=== PATIENT | male | born 1950 | race Caucasian/White ===

== ENCOUNTER 2018-08-08 13:43 | Inpatient (IN) | payer MEDICARE, OTHER ==
[~2018-08-08] VITALS: Ht 177.8 cm; Wt 106.3 kg
--- NOTE | 2018-08-08 14:11 | RAD ---
CHEST AP ONLY History: Shortness of breath. COMPARISON: None FINDINGS: The cardiomediastinal silhouette is mildly widened but that is likely accentuated by the portable technique. No evidence of pneumothorax. No large effusion. Interstitial opacity identified bilaterally greatest in lung bases. No lobar consolidation. Bones appear to be intact. IMPRESSION: Mild interstitial opacities greatest in the lung bases, may represent atelectasis, versus mild edema or pneumonitis. Electronically signed by: Andry López MD (08/08/2018 2:08 PM) [id number]
[2018-08-08] MEDS ORDERED: dilTIAZem IV PUSH 25 MG/5 ML VIAL ONE (14:14)
[2018-08-08 14:22] LABS: BASO # 0.1 x10^3/uL (0.0-0.2); BASO % 1 % (0-3); EOS # 0.1 x10^3/uL (0.0-0.7); EOS % 2 % (0-3); HEMOGLOBIN 14.4 g/dL (13.0-17.5); LYMPH # 1.2 x10^3/uL (1.0-4.8); LYMPH % 16 % (24-48); MEAN CORPUSCULAR HEMOGLOBIN 34 pg (25-35); MEAN CORPUSCULAR HGB CONC 35 g/dL (31-37); MEAN CORPUSCULAR VOLUME 96 fL (79-100); MONO # 0.8 x10^3/uL (0.0-1.1); MONO % 11 % (0-9); NEUT # 5.2 x10^3uL (1.8-7.7); NEUT % 70 % (31-73); PLATELET COUNT 210 x10^3/uL (140-400); RED BLOOD COUNT 4.28 x10^6/uL (4.30-5.70); RED CELL DISTRIBUTION WIDTH 13.2 % (11.5-14.5); WHITE BLOOD COUNT 7.5 x10^3/uL (4.0-11.0)
[2018-08-08] MEDS ORDERED: dilTIAZem IV PUSH 25 MG/5 ML VIAL IVP ONE (14:30)
[2018-08-08] MEDS ORDERED: dilTIAZem INJ 125 MG in IV DEXTROSE 5% 100ML 100 ML IV ONE (14:30)
[2018-08-08] MEDS ORDERED: IV NORMAL SALINE 1000ML BAG 1,000 ML IV ONE (14:30)
[2018-08-08] MEDS ORDERED: FUROSEMIDE 40 MG/4 ML VIAL. IVP ONE (14:30)
[2018-08-08 14:35] LABS: CALCIUM 8.8 mg/dL (8.5-10.1); CREATININE 1.5 mg/dL (0.7-1.3); GFR 46.7; POTASSIUM 4.5 mmol/L (3.5-5.1)
--- NOTE | 2018-08-08 14:36 | PDOC2 ---
DAYANA VILLARREAL CCU NURSE 08/08/18 1436: CARDIAC CONSULT DATE OF CONSULT Date of Consult DATE: 08/08/18 TIME: 14:32 REASON FOR CONSULT Reason for Consult: CHF, AFIB RVR REFERRING PHYSICIAN Referring Physician: Cliff HISTORY OF PRESENT ILLNESS HISTORY OF PRESENT ILLNESS This is a pleasant 67 yo male admitted for complains of chest pain, SOA, palpitations. Reports that in the last month he has been feeling fatigue. His appetite has been decreased but told me that he only has gained 5 pounds in the last 6 months. Reported that he has been having intermittent mid chest pressure but nonradiating. No nausea or vomiting. Also positive for QUIROZ and feeling of indigestion and his gut feeling bigger. No recent falls or any injury and no past hx of CAD but has PSVT which he was checked on by his PCP about a month ago but no changes on his meds to which he takes atenolol at 25 mg daily. 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 Reports that in the last 2 weeks he has been having PND, orthopnea despite consistent use of CPAP but no significant swelling and has noted his HR being up and down so as his BP and felt that his CPAP stopped working. Upon arrival in ED he was noted SOA and has AFIB RVR. No prior hx of CVA, bleeding disorder. No recent fever or chills. No prior hx of AFIB. PAST MEDICAL HISTORY Cardiovascular: HTN, Other (PSVT) Pulmonary: No pertinent hx, Other CENTRAL NERVOUS SYSTEM: Carpal Tunnel Syndrome GI: No pertinent hx Heme/Onc: No pertinent hx Hepatobiliary: No pertinent hx Psych: Other (insomnia) Musculoskeletal: Osteoarthritis Rheumatologic: No pertinent hx Infectious disease: No pertinent hx ENT: No pertinent hx, Allergic Rhinitis Renal/: No pertinent hx Endocrine: No pertinent hx Dermatology: No pertinent hx PAST SURGICAL HISTORY Past Surgical History: Arthroscopy (bilateral knee), Other (carpal tunnel repair bilaterally) FAMILY HISTORY Family History: Coronary Artery Disease (father), Stroke (father) CURRENT MEDICATIONS CURRENT MEDICATIONS Current Medications Medications (Trade) Dose Ordered Sig/[place] Route PRN Reason Start Time Stop Time Status Last Admin Dose Admin Diltiazem HCl (Cardizem Iv Push) 10 mg 1X ONCE IVP 08/08/18 14:30 08/08/18 14:31 DC 08/08/18 14:17 ALLERGIES ALLERGIES: Coded Allergies: No Known Drug Allergies (Unverified , 08/08/18) ROS Review of System 14 point ROS evaluated with pertinent positives noted per HPI PHYSICAL EXAM General: Alert, Oriented X3, Cooperative, mild distress HEENT: Atraumatic, Mucous membr. moist/pink Lungs: Other (basilar crackles; biapap in place) Heart: Other (AFIB RVR; 2/6 systolic murmur to LLS border) Abdomen: Soft, Other (truncal obesity) Extremities: No cyanosis, Other (2+ bilateral pitting edema) Skin: No breakdown, No significant lesion Neuro: Normal speech, Sensation intact Psych/Mental Status: Mental status NL, Mood NL MUSCULOSKELETAL: Osteoarthritic changes both hands VITALS VITALS Vital Signs Date Time Temp Pulse Resp B/P (MAP) Pulse Ox O2 Delivery O2 Flow Rate FiO2 08/08/18 14:28 123 28 76/60 (65) 94 Room Air 08/08/18 13:51 98.3 98.3 LABS Lab: Laboratory Tests Test 08/08/18 14:15 White Blood Count 7.5 x10^3/uL (4.0-11.0) Red Blood Count 4.28 x10^6/uL (4.30-5.70) Hemoglobin 14.4 g/dL (13.0-17.5) Hematocrit 41.0 % (39.0-53.0) Mean Corpuscular Volume 96 fL (79-100) Mean Corpuscular Hemoglobin 34 pg (25-35) Mean Corpuscular Hemoglobin Concent 35 g/dL (31-37) Red Cell Distribution Width 13.2 % (11.5-14.5) Platelet Count 210 x10^3/uL (140-400) Neutrophils (%) (Auto) 70 % (31-73) Lymphocytes (%) (Auto) 16 % (24-48) Monocytes (%) (Auto) 11 % (0-9) Eosinophils (%) (Auto) 2 % (0-3) Basophils (%) (Auto) 1 % (0-3) Neutrophils # (Auto) 5.2 x10^3uL (1.8-7.7) Lymphocytes # (Auto) 1.2 x10^3/uL (1.0-4.8) Monocytes # (Auto) 0.8 x10^3/uL (0.0-1.1) Eosinophils # (Auto) 0.1 x10^3/uL (0.0-0.7) Basophils # (Auto) 0.1 x10^3/uL (0.0-0.2) ASSESSMENT/PLAN ASSESSMENT/PLAN 1. Chest pain: possibly from AFIB/CHF, could not rule out ischemis issues 2. Acute CHF with possible diastolic dysfunction: likely induced by AFIB but could not completely rule out ischemia 3. AFIB RVR: new., likely has been going on in the last month 4. Obesity with PAT: uses CPAP at home 5. HTN: BP currently marginal 6. Hx of PSVT: treated with low dose atenolol at home Recommendations 1. Lasix. Agree with bipap. DC cardizem and start on PO metoprol IR if BP trend allows 2. Cardizem bolus received, BP marginal unable to initiate drip Dig bolus. MR Dig in 6 hours if remains in RVR 3. ASA. Heparin drip to start. Potential inpt CVN if he does not convert 4. TSH, lipids, UA, ABG TTE. Trend troponin 5. Ischemic workup pending above testings and clincial course. SRIRAM JORGENSEN MD 08/09/18 0743: CARDIAC CONSULT ASSESSMENT/PLAN ASSESSMENT/PLAN Patient seen and examined 08/08/18. Agree with MACHINIST SUPERVISOR OUTSIDE's assessment and plan. Chest pain with mixed features Myocardial infarction has been ruled out Atrial fibrillation, newly diagnosed rate better controlled Agree with beta blockers for rate control Check 2-D echo to assess LV systolic function We will consider ischemic evaluation as an outpatient Acute on chronic diastolic heart failure probably secondary to atrial fibril lation, continue diuresis We will initiate eliquis prior to discharge and consider outpatient cardioversion Thank you for your consultation DAYANA VILLARREAL APRN Aug 08, 2018 14:36 SRIRAM JORGENSEN MD Aug 09, 2018 07:43
[2018-08-08 14:40] LABS: ALBUMIN 3.1 g/dL (3.4-5.0); ALBUMIN/GLOBULIN RATIO 0.8 (1.0-1.7); TOTAL BILIRUBIN 0.7 mg/dL (0.2-1.0); TOTAL PROTEIN 6.9 g/dL (6.4-8.2)
[2018-08-08 14:50] LABS: PROTHROMBIN TIME PATIENT 14.3 SEC (11.7-14.0)
--- NOTE | 2018-08-08 14:56 | PHYS DOC ---
Past Medical History Past Medical History: High Cholesterol, Hypertension, Other Additional Past Medical Histor: SVT, seasonal allergies Past Surgical History: Tonsillectomy, Other Additional Past Surgical Histo: knee surgery, tendon/ligament surgeries Additional Information: quit smoking 15 year ago Alcohol Use: Occasionally Drug Use: None Adult General Chief Complaint Chief Complaint: SHORTNESS OF BREATH [facility] HPI Patient is a 67 year old male presents with dyspnea 2 weeks with increased dyspnea with exertion this afternoon and that her chest pressure lasting less than 15 seconds. Denies history of coronary disease, valvular heart disease or arrhythmia. On triage EKG, the patient is in A. fib with RVR with heart rate in the 140s. Denies upper dictations. Denies dizziness lightheadedness, increased peripheral edema or water gain. No[] Review of Systems Review of Systems Constitutional: Denies fever or chills [] Eyes: Denies change in visual acuity, redness, or eye pain [] HENT: Denies nasal congestion or sore throat [] Respiratory: Denies cough or shortness of breath [] Cardiovascular: No additional information not addressed in HPI [] GI: Denies abdominal pain, nausea, vomiting, bloody stools or diarrhea [] : Denies dysuria or hematuria [] Musculoskeletal: Denies back pain or joint pain [] Integument: Denies rash or skin lesions [] Neurologic: Denies headache, focal weakness or sensory changes [] Endocrine: Denies polyuria or polydipsia [] All other systems were reviewed and found to be within normal limits, except as documented in this note. Current Medications Current Medications Current Medications Medications (Trade) Dose Ordered Sig/[facility] Start Time Stop Time Status Last Admin Dose Admin Acetaminophen (Tylenol) 500 mg PRN Q6HRS PRN 08/08/18 15:00 Acetaminophen/ Codeine Phosphate (Tylenol #3) 1 tab PRN Q6HRS PRN 08/08/18 15:00 Atorvastatin Calcium (Lipitor) 10 mg QHS 08/08/18 21:00 Cetirizine HCl (ZyrTEC) 10 mg PRN DAILY PRN 08/08/18 15:15 Digoxin (Lanoxin) 500 mcg 1X ONCE 08/08/18 15:15 08/08/18 15:17 DC Diltiazem HCl (Cardizem Iv Push) 25 mg STK-MED ONCE 08/08/18 14:14 08/08/18 14:15 DC Diltiazem HCl 125 mg/Dextrose 125 ml @ 5 mls/hr 1X ONCE 08/08/18 14:30 08/09/18 15:29 Fluticasone Propionate (Flonase) 2 spray DAILY 08/09/18 09:00 Furosemide (Lasix) 40 mg 1X ONCE 08/08/18 14:30 08/08/18 14:31 DC 08/08/18 14:37 40 MG Morphine Sulfate (Morphine Sulfate) 2 mg PRN Q2HR PRN 08/08/18 15:00 Ondansetron HCl (Zofran) 4 mg PRN Q6HRS PRN 08/08/18 15:00 Simvastatin (Zocor) 20 mg HS 08/08/18 21:00 08/08/18 21:00 DC Sodium Chloride 1,000 ml @ 1,000 mls/hr 1X ONCE 08/08/18 14:30 08/08/18 15:29 08/08/18 14:32 1,000 MLS/HR Temazepam (Restoril) 7.5 mg PRN QHS PRN 08/08/18 15:00 08/08/18 15:09 DC Trazodone HCl (Desyrel) 100 mg PRN QHS PRN 08/08/18 15:15 Allergies Allergies Allergies Coded Allergies Type Severity Reaction Last Updated Verified No Known Drug Allergies 08/08/18 No Physical Exam Physical Exam Constitutional: Well developed, well nourished, no acute distress, non-toxic appearance. [] HENT: Normocephalic, atraumatic, bilateral external ears normal, oropharynx moist, no oral exudates, nose normal. [] Eyes: PERRLA, EOMI, conjunctiva normal, no discharge. [] Neck: Normal range of motion, no tenderness. [] Cardiovascular:Heart rate regular rhythm, no murmur [] Lungs & Thorax: Bilateral breath sounds clear to auscultation [] Abdomen: Bowel sounds normal, soft, no tenderness, no masses, no pulsatile masses. [] Skin: Warm, dry, no erythema. [] Back: No tenderness. [] Extremities: No tenderness, no cyanosis, no clubbing, ROM intact, no edema. [] Neurologic: Alert and oriented X 3, normal motor function, normal sensory function, no focal deficits noted. [] Psychologic: Affect normal, judgement normal, mood normal. [] Current Patient Data Vital Signs Vital Signs Date Time Temp Pulse Resp B/P (MAP) Pulse Ox O2 Delivery O2 Flow Rate FiO2 08/08/18 14:37 114 20 95/77 (83) Room Air 08/08/18 14:28 94 08/08/18 13:51 98.3 98.3 Lab Values Laboratory Tests Test 08/08/18 14:15 White Blood Count 7.5 x10^3/uL (4.0-11.0) Red Blood Count 4.28 x10^6/uL (4.30-5.70) L Hemoglobin 14.4 g/dL (13.0-17.5) Hematocrit 41.0 % (39.0-53.0) Mean Corpuscular Volume 96 fL (79-100) Mean Corpuscular Hemoglobin 34 pg (25-35) Mean Corpuscular Hemoglobin Concent 35 g/dL (31-37) Red Cell Distribution Width 13.2 % (11.5-14.5) Platelet Count 210 x10^3/uL (140-400) Neutrophils (%) (Auto) 70 % (31-73) Lymphocytes (%) (Auto) 16 % (24-48) L Monocytes (%) (Auto) 11 % (0-9) H Eosinophils (%) (Auto) 2 % (0-3) Basophils (%) (Auto) 1 % (0-3) Neutrophils # (Auto) 5.2 x10^3uL (1.8-7.7) Lymphocytes # (Auto) 1.2 x10^3/uL (1.0-4.8) Monocytes # (Auto) 0.8 x10^3/uL (0.0-1.1) Eosinophils # (Auto) 0.1 x10^3/uL (0.0-0.7) Basophils # (Auto) 0.1 x10^3/uL (0.0-0.2) Prothrombin Time 14.3 SEC (11.7-14.0) H Prothrombin Time INR 1.1 (0.8-1.1) Sodium Level 142 mmol/L (136-145) Potassium Level 4.5 mmol/L (3.5-5.1) Chloride Level 106 mmol/L (98-107) Carbon Dioxide Level 26 mmol/L (21-32) Anion Gap 10 (6-14) Blood Urea Nitrogen 25 mg/dL (8-26) Creatinine 1.5 mg/dL (0.7-1.3) H Estimated GFR (Cockcroft-Gault) 46.7 BUN/Creatinine Ratio 17 (6-20) Glucose Level 126 mg/dL (70-99) H Calcium Level 8.8 mg/dL (8.5-10.1) Total Bilirubin 0.7 mg/dL (0.2-1.0) Aspartate Amino Transferase (AST) 31 U/L (15-37) Alanine Aminotransferase (ALT) 67 U/L (16-63) H Alkaline Phosphatase 69 U/L (46-116) Troponin I Quantitative < 0.017 ng/mL (0.000-0.055) RP-Tkp-C-Type Natriuretic Peptide 3361 pg/mL (0-124) H Total Protein 6.9 g/dL (6.4-8.2) Albumin 3.1 g/dL (3.4-5.0) L Albumin/Globulin Ratio 0.8 (1.0-1.7) L Thyroid Stimulating Hormone (TSH) 2.011 uIU/mL (0.358-3.74) Laboratory Tests 08/08/18 14:15 Laboratory Tests 08/08/18 14:15 EKG EKG [EKG: A. fib with RVR. rate 121.] Radiology/Procedures Radiology/Procedures [Chest x-ray: Cardiomegaly with pulmonary edema.] Course & Med Decision Making Course & Med Decision Making Pertinent Labs and Imaging studies reviewed. (See chart for details) [New-onset A. fib with RVR and congestive heart failure. Patient started on Cardizem drip and placed on BiPAP. Fluid bolus was started for hypotension, Lasix given. Cardiology services consult. to admit.] Johanny Disclaimer Johanny Disclaimer This electronic medical record was generated, in whole or in part, using a voice recognition dictation system. Departure Departure Impression: Primary Impression: Atrial fibrillation with RVR Additional Impression: Congestive heart failure Disposition: 09 ADMITTED INPATIENT Condition: IMPROVED Problem Qualifiers BRO ESTRADA DO Aug 08, 2018 14:55
[2018-08-08] MEDS ORDERED: MORPHINE SULFATE 2 MG/ML VIAL. IV PRN (15:00)
[2018-08-08] MEDS ORDERED: ACETAMINOPHEN 500 MG TABLET PO PRN (15:00)
[2018-08-08] MEDS ORDERED: ONDANSETRON PF 4 MG/2 ML VIAL. IV PRN (15:00)
[2018-08-08] MEDS ORDERED: ACETAMINOPHEN/CODEINE 300/30MG TABLET. PO PRN (15:00)
[2018-08-08] MEDS ORDERED: TEMAZEPAM 7.5 MG CAPSULE PO PRN (15:00)
[2018-08-08] MEDS ORDERED: FLUT9.9S NS (15:09)
[2018-08-08] MEDS ORDERED: TRAZ-86 PO (15:09)
[2018-08-08] MEDS ORDERED: LORA10TA3 PO (15:09)
[2018-08-08] MEDS ORDERED: SIMV20TA3 PO (15:09)
[2018-08-08] MEDS ORDERED: ATEN25TA PO (15:09)
[2018-08-08] MEDS ORDERED: DOXY100C2 PO (15:09)
[2018-08-08] MEDS ORDERED: DIGOXIN IV 500 MCG/2 ML AMPUL. IV ONE (15:15)
[2018-08-08] MEDS ORDERED: CETIRIZINE HCL 10 MG TABLET. PO PRN (15:15)
--- NOTE | 2018-08-08 15:16 | PDOC1 ---
History and Physical Date of Admission Date of Admission DATE: 08/08/18 TIME: 15:09 Identification/Chief Complaint Chief Complaint SOA, weight gain, big belly Source Source: Caregiver, Chart review, Patient History of Present Illness History of Present Illness 67-year-old white male lives with , BMI 34.4, known to Dr. Werner for sleep apnea, CPAP-but talks about needing BiPAP soon, Coming in because of SOA for a few weeks, culminated today with one major episode chest pain described as heavy left-sided and worsened SOA. also noted some weight gain, ascites/big belly but no leg edema.. No known history of CAD or CHF, nondiabetic. But history of hyportension, svt on atenolol. He is a former smoker quit in 2004, Hx Dyslipidemia on simvastatin, insomnia on trazodone and some COPD or allergies on loratadine and Flonase. Came in A. fib RVR 130s to 140s, history of SVT and was arranged to see our cardiology group but has not yet seen as outpatient. Got Cardizem bolus and drip but went hypotensive hence got IV fluid bolus. And some Lasix which we are fearing to give bec of hypotension. Currently now on the BiPAP. Chest pain-free, creatinine 1.5. We're waiting for cardiology. We'll also consult pulmonary Full code Home meds including trazodone, simvastatin, atenolol 25 once a day, loratadine and fluticasone No known drug allergies. Past Medical History Cardiovascular: Hyperlipidemia, Other (hypotension, SVT) Past Surgical History Past Surgical History: No pertinent history Family History Family History: High Cholestrol, Hypertension Social History Smoke: Quit ALCOHOL: occassional Drugs: None Current Medications Current Medications Current Medications Diltiazem HCl (Cardizem Iv Push) 10 mg 1X ONCE IVP Last administered on 08/08/18at 14:17; Start 08/08/18 at 14:30; Stop 08/08/18 at 14:31; Status DC Diltiazem HCl 125 mg/Dextrose 125 ml @ 5 mls/hr 1X ONCE IV ; Start 08/08/18 at 14:30; Stop 08/09/18 at 15:29 Diltiazem HCl (Cardizem Iv Push) 25 mg STK-MED ONCE .ROUTE ; Start 08/08/18 at 14:14; Stop 08/08/18 at 14:15; Status DC Sodium Chloride 1,000 ml @ 1,000 mls/hr 1X ONCE IV Last administered on 08/08/18at 14:32; Start 08/08/18 at 14:30; Stop 08/08/18 at 15:29 Furosemide (Lasix) 40 mg 1X ONCE IVP Last administered on 08/08/18at 14:37; Start 08/08/18 at 14:30; Stop 08/08/18 at 14:31; Status DC Acetaminophen (Tylenol) 500 mg PRN Q6HRS PRN PO MILD PAIN / TEMP; Start 08/08/18 at 15:00 Acetaminophen/ Codeine Phosphate (Tylenol #3) 1 tab PRN Q6HRS PRN PO MODERATE - SEVERE PAIN; Start 08/08/18 at 15:00 Ondansetron HCl (Zofran) 4 mg PRN Q6HRS PRN IV NAUSEA/VOMITING; Start 08/08/18 at 15:00 Morphine Sulfate (Morphine Sulfate) 2 mg PRN Q2HR PRN IV PAIN; Start 08/08/18 at 15:00 Temazepam (Restoril) 7.5 mg PRN QHS PRN PO INSOMNIA; Start 08/08/18 at 15:00 Active Scripts Active Reported Flonase Allergy Relief (Fluticasone Propionate) 9.9 Ml [place].susp 2 Sprays NS DAILY Loratadine 10 Mg Tablet 2 Tab PO DAILY Atenolol 25 Mg Tablet 1 Tab PO DAILY Simvastatin 20 Mg Tablet 20 Mg PO DAILY Trazodone Hcl 100 Mg Tablet 1 Tab PO QHS Doxycycline Hyclate 100 Mg Capsule 1 Cap PO BID Allergies Allergies: Coded Allergies: No Known Drug Allergies (Unverified , 08/08/18) ROS Review of System As per history of present illness, the rest of ROS 14 point negative Physical Exam General: Alert, Oriented X3, Cooperative, No acute distress, Other (on the BiPAP and working well with the BiPAP) HEENT: Atraumatic, PERRLA, EOMI Lungs: Normal air movement, Other (diminisehd breath sounds but no wheezing, crackles bases) Cardiovascular: S1, S2, Other (A. fib RVR, anywhere between 80s to 1 teens) Abdomen: Normal bowel sounds, Soft, No tenderness, No hepatosplenomegaly, No masses, Other (big belly, nondistended, normoactive bowel sounds, nontender) Male Genitals Exam: normal genitalia, normal prostate Rectal Exam: not examined PELVIC: Nml ext genitalia Extremities: No clubbing, No cyanosis, No edema, Normal pulses, No tenderness/swelling Skin: No rashes, No breakdown, No significant lesion Neuro: Normal gait, Normal speech, Strength at 5/5 X4 ext, Normal tone, Sensation intact, Cranial nerves 3-12 NL, Reflexes 2+ Psych/Mental Status: Mental status NL, Mood NL Vitals Vitals Vital Signs Date Time Temp Pulse Resp B/P (MAP) Pulse Ox O2 Delivery O2 Flow Rate FiO2 08/08/18 14:37 114 20 95/77 (83) Room Air 08/08/18 14:28 94 08/08/18 13:51 98.3 98.3 Labs Labs Laboratory Tests Test 08/08/18 14:15 White Blood Count 7.5 x10^3/uL (4.0-11.0) Red Blood Count 4.28 x10^6/uL (4.30-5.70) Hemoglobin 14.4 g/dL (13.0-17.5) Hematocrit 41.0 % (39.0-53.0) Mean Corpuscular Volume 96 fL (79-100) Mean Corpuscular Hemoglobin 34 pg (25-35) Mean Corpuscular Hemoglobin Concent 35 g/dL (31-37) Red Cell Distribution Width 13.2 % (11.5-14.5) Platelet Count 210 x10^3/uL (140-400) Neutrophils (%) (Auto) 70 % (31-73) Lymphocytes (%) (Auto) 16 % (24-48) Monocytes (%) (Auto) 11 % (0-9) Eosinophils (%) (Auto) 2 % (0-3) Basophils (%) (Auto) 1 % (0-3) Neutrophils # (Auto) 5.2 x10^3uL (1.8-7.7) Lymphocytes # (Auto) 1.2 x10^3/uL (1.0-4.8) Monocytes # (Auto) 0.8 x10^3/uL (0.0-1.1) Eosinophils # (Auto) 0.1 x10^3/uL (0.0-0.7) Basophils # (Auto) 0.1 x10^3/uL (0.0-0.2) Prothrombin Time 14.3 SEC (11.7-14.0) Prothromb Time International Ratio 1.1 (0.8-1.1) Sodium Level 142 mmol/L (136-145) Potassium Level 4.5 mmol/L (3.5-5.1) Chloride Level 106 mmol/L (98-107) Carbon Dioxide Level 26 mmol/L (21-32) Anion Gap 10 (6-14) Blood Urea Nitrogen 25 mg/dL (8-26) Creatinine 1.5 mg/dL (0.7-1.3) Estimated GFR (Cockcroft-Gault) 46.7 BUN/Creatinine Ratio 17 (6-20) Glucose Level 126 mg/dL (70-99) Calcium Level 8.8 mg/dL (8.5-10.1) Total Bilirubin 0.7 mg/dL (0.2-1.0) Aspartate Amino Transf (AST/SGOT) 31 U/L (15-37) Alanine Aminotransferase (ALT/SGPT) 67 U/L (16-63) Alkaline Phosphatase 69 U/L (46-116) Troponin I Quantitative < 0.017 ng/mL (0.000-0.055) VW-Pjw-T-Type Natriuretic Peptide 3361 pg/mL (0-124) Total Protein 6.9 g/dL (6.4-8.2) Albumin 3.1 g/dL (3.4-5.0) Albumin/Globulin Ratio 0.8 (1.0-1.7) Thyroid Stimulating Hormone (TSH) 2.011 uIU/mL (0.358-3.74) Laboratory Tests Test 08/08/18 14:15 White Blood Count 7.5 x10^3/uL (4.0-11.0) Red Blood Count 4.28 x10^6/uL (4.30-5.70) Hemoglobin 14.4 g/dL (13.0-17.5) Hematocrit 41.0 % (39.0-53.0) Mean Corpuscular Volume 96 fL (79-100) Mean Corpuscular Hemoglobin 34 pg (25-35) Mean Corpuscular Hemoglobin Concent 35 g/dL (31-37) Red Cell Distribution Width 13.2 % (11.5-14.5) Platelet Count 210 x10^3/uL (140-400) Neutrophils (%) (Auto) 70 % (31-73) Lymphocytes (%) (Auto) 16 % (24-48) Monocytes (%) (Auto) 11 % (0-9) Eosinophils (%) (Auto) 2 % (0-3) Basophils (%) (Auto) 1 % (0-3) Neutrophils # (Auto) 5.2 x10^3uL (1.8-7.7) Lymphocytes # (Auto) 1.2 x10^3/uL (1.0-4.8) Monocytes # (Auto) 0.8 x10^3/uL (0.0-1.1) Eosinophils # (Auto) 0.1 x10^3/uL (0.0-0.7) Basophils # (Auto) 0.1 x10^3/uL (0.0-0.2) Prothrombin Time 14.3 SEC (11.7-14.0) Prothromb Time International Ratio 1.1 (0.8-1.1) Sodium Level 142 mmol/L (136-145) Potassium Level 4.5 mmol/L (3.5-5.1) Chloride Level 106 mmol/L (98-107) Carbon Dioxide Level 26 mmol/L (21-32) Anion Gap 10 (6-14) Blood Urea Nitrogen 25 mg/dL (8-26) Creatinine 1.5 mg/dL (0.7-1.3) Estimated GFR (Cockcroft-Gault) 46.7 BUN/Creatinine Ratio 17 (6-20) Glucose Level 126 mg/dL (70-99) Calcium Level 8.8 mg/dL (8.5-10.1) Total Bilirubin 0.7 mg/dL (0.2-1.0) Aspartate Amino Transf (AST/SGOT) 31 U/L (15-37) Alanine Aminotransferase (ALT/SGPT) 67 U/L (16-63) Alkaline Phosphatase 69 U/L (46-116) Troponin I Quantitative < 0.017 ng/mL (0.000-0.055) ZD-Wfu-Q-Type Natriuretic Peptide 3361 pg/mL (0-124) Total Protein 6.9 g/dL (6.4-8.2) Albumin 3.1 g/dL (3.4-5.0) Albumin/Globulin Ratio 0.8 (1.0-1.7) Thyroid Stimulating Hormone (TSH) 2.011 uIU/mL (0.358-3.74) VTE Prophylaxis Ordered VTE Prophylaxis Devices: Yes VTE Pharmacological Prophylaxi: Yes Assessment/Plan Assessment/Plan Acute respiratory failure secondary to mild fluid overload with A. fib RVR on NIPPV-first time Ex-smoker quit 2004 Hypotension history History SVT on atenolol Dyslipidemia on simvastatin 20 daily at bedtime Morbid obesity with recent weight gain-BMI 34.4 No leg edema AK I creatinine 1.5-unknown baseline Elevated BNP 3000 Chest pain [id number] out ACS Plan: Admit 2 MN Cautious to give Lasix because of hypotension Cautious IV hydration because of pulm edema BiPAP-consult pulmonary and cardiology Check TSH CVC bed or ICU bed pending above consults I have reconciled home meds except atenolol because of hypotension Full code Discussed with and patient, seen at ER #[id number] Ok for cardiac diet Keep tele UMESH GLOVER MD Aug 08, 2018 15:16
--- NOTE | 2018-08-08 16:14 | EKG ---
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
[2018-08-08] MEDS ORDERED: HEPARIN 25,000UTS/500ML PREMIX 500 ML IV PRN (16:15)
[2018-08-08] MEDS ORDERED: ASPIRIN ENTERIC COATED 325 MG TABLET.DR. PO ONE (16:15)
[2018-08-08] MEDS ORDERED: METOPROLOL TART IMMED RELEASE 25 MG TABLET. PO ONE (16:15)
[2018-08-08] MEDS ORDERED: HEPARIN for IV BOLUS 10,000 UNIT/10 ML VIAL. IV PRN (16:15)
[2018-08-08 16:16] LABS: BILIRUBIN,URINE NEGATIVE (NEG); CLARITY,URINE CLEAR; COLOR,URINE YELLOW; NITRITE,URINE NEGATIVE (NEG); PROTEIN,URINE NEGATIVE (NEG-TRACE); UROBILINOGEN,URINE 0.2 mg/dL (0.2 mg/dL)
[2018-08-08 16:34] LABS: RBC,URINE 0 /HPF (0-2); WBC,URINE RARE /HPF (0-4)
[2018-08-08 16:35] LABS: BACTERIA,URINE 0 /HPF (0-FEW)
[2018-08-08 17:28] VITALS: BP 124/79
[2018-08-08 19:10] VITALS: BP 106/80
[2018-08-08] MEDS ORDERED: SIMVASTATIN 20 MG TABLET PO SCH (21:00)
[2018-08-08] MEDS: traZODone 100 MG TABLET. PO PRN (21:53)
[2018-08-08] MEDS: ATORVASTATIN CALCIUM 10 MG TABLET. PO SCH (21:53)
[2018-08-08 23:24] VITALS: BP 109/65
[2018-08-09 03:00] VITALS: BP 108/72
[2018-08-09 07:00] VITALS: BP 120/78
[2018-08-09 07:30] LABS: HEMATOCRIT 40.4 % (39.0-53.0); RED BLOOD COUNT 4.24 x10^6/uL (4.30-5.70); RED CELL DISTRIBUTION WIDTH 13.2 % (11.5-14.5); WHITE BLOOD COUNT 6.1 x10^3/uL (4.0-11.0)
[2018-08-09 07:37] LABS: CALCIUM 8.5 mg/dL (8.5-10.1); CREATININE 1.1 mg/dL (0.7-1.3); GFR 66.8; POTASSIUM 3.8 mmol/L (3.5-5.1)
[2018-08-09 07:42] LABS: MAGNESIUM 2.1 mg/dL (1.8-2.4)
[2018-08-09 07:45] LABS: CHOLESTEROL/HDL RATIO 3.7
--- NOTE | 2018-08-09 08:02 | PDOC ---
PULMONARY PROGRESS NOTES Subjective disregard this note Vitals Vital Signs Date Time Temp Pulse Resp B/P (MAP) Pulse Ox O2 Delivery O2 Flow Rate FiO2 08/09/18 03:00 98.0 90 20 108/72 (84) 94 BiPAP/CPAP 98.0 Cardiovascular: S1, S2, Other (A. fib RVR, anywhere between 80s to 1 teens) Labs Laboratory Tests Test 08/08/18 14:15 08/08/18 16:00 08/08/18 18:10 08/09/18 07:10 White Blood Count 7.5 x10^3/uL (4.0-11.0) 6.1 x10^3/uL (4.0-11.0) Red Blood Count 4.28 x10^6/uL (4.30-5.70) 4.24 x10^6/uL (4.30-5.70) Hemoglobin 14.4 g/dL (13.0-17.5) 14.0 g/dL (13.0-17.5) Hematocrit 41.0 % (39.0-53.0) 40.4 % (39.0-53.0) Mean Corpuscular Volume 96 fL (79-100) 95 fL (79-100) Mean Corpuscular Hemoglobin 34 pg (25-35) 33 pg (25-35) Mean Corpuscular Hemoglobin Concent 35 g/dL (31-37) 35 g/dL (31-37) Red Cell Distribution Width 13.2 % (11.5-14.5) 13.2 % (11.5-14.5) Platelet Count 210 x10^3/uL (140-400) 191 x10^3/uL (140-400) Neutrophils (%) (Auto) 70 % (31-73) Lymphocytes (%) (Auto) 16 % (24-48) Monocytes (%) (Auto) 11 % (0-9) Eosinophils (%) (Auto) 2 % (0-3) Basophils (%) (Auto) 1 % (0-3) Neutrophils # (Auto) 5.2 x10^3uL (1.8-7.7) Lymphocytes # (Auto) 1.2 x10^3/uL (1.0-4.8) Monocytes # (Auto) 0.8 x10^3/uL (0.0-1.1) Eosinophils # (Auto) 0.1 x10^3/uL (0.0-0.7) Basophils # (Auto) 0.1 x10^3/uL (0.0-0.2) Prothrombin Time 14.3 SEC (11.7-14.0) Prothromb Time International Ratio 1.1 (0.8-1.1) Sodium Level 142 mmol/L (136-145) 141 mmol/L (136-145) Potassium Level 4.5 mmol/L (3.5-5.1) 3.8 mmol/L (3.5-5.1) Chloride Level 106 mmol/L (98-107) 106 mmol/L (98-107) Carbon Dioxide Level 26 mmol/L (21-32) 24 mmol/L (21-32) Anion Gap 10 (6-14) 11 (6-14) Blood Urea Nitrogen 25 mg/dL (8-26) 22 mg/dL (8-26) Creatinine 1.5 mg/dL (0.7-1.3) 1.1 mg/dL (0.7-1.3) Estimated GFR (Cockcroft-Gault) 46.7 66.8 BUN/Creatinine Ratio 17 (6-20) Glucose Level 126 mg/dL (70-99) 96 mg/dL (70-99) Calcium Level 8.8 mg/dL (8.5-10.1) 8.5 mg/dL (8.5-10.1) Total Bilirubin 0.7 mg/dL (0.2-1.0) Aspartate Amino Transf (AST/SGOT) 31 U/L (15-37) Alanine Aminotransferase (ALT/SGPT) 67 U/L (16-63) Alkaline Phosphatase 69 U/L (46-116) Troponin I Quantitative < 0.017 ng/mL (0.000-0.055) < 0.017 ng/mL (0.000-0.055) SX-Odx-Z-Type Natriuretic Peptide 3361 pg/mL (0-124) Total Protein 6.9 g/dL (6.4-8.2) Albumin 3.1 g/dL (3.4-5.0) Albumin/Globulin Ratio 0.8 (1.0-1.7) Thyroid Stimulating Hormone (TSH) 2.011 uIU/mL (0.358-3.74) Urine Collection Type Unknown Urine Color Yellow Urine Clarity Clear Urine pH 6.0 Urine Specific [place] 1.010 Urine Protein Negative mg/dL (NEG-TRACE) Urine Glucose (UA) Negative mg/dL (NEG) Urine Ketones (Stick) Negative mg/dL (NEG) Urine Blood Negative (NEG) Urine Nitrite Negative (NEG) Urine Bilirubin Negative (NEG) Urine Urobilinogen Dipstick 0.2 mg/dL (0.2 mg/dL) Urine Leukocyte Esterase Negative (NEG) Urine RBC 0 /HPF (0-2) Urine WBC Rare /HPF (0-4) Urine Bacteria 0 /HPF (0-FEW) Urine Mucus Slight /LPF Heparin Anti-Xa Act, Unfractionated < 0.27 IU/mL (0.30-0.70) Magnesium Level 2.1 mg/dL (1.8-2.4) Triglycerides Level 83 mg/dL (0-150) Cholesterol Level 119 mg/dL (0-200) LDL Cholesterol, Calculated 70 mg/dL (0-100) VLDL Cholesterol, Calculated 17 mg/dL (0-40) Non-HDL Cholesterol Calculated 87 mg/dL (0-129) HDL Cholesterol 32 mg/dL (40-60) Cholesterol/HDL Ratio 3.7 Laboratory Tests Test 08/08/18 14:15 08/08/18 16:00 08/08/18 18:10 08/09/18 07:10 White Blood Count 7.5 x10^3/uL (4.0-11.0) 6.1 x10^3/uL (4.0-11.0) Red Blood Count 4.28 x10^6/uL (4.30-5.70) 4.24 x10^6/uL (4.30-5.70) Hemoglobin 14.4 g/dL (13.0-17.5) 14.0 g/dL (13.0-17.5) Hematocrit 41.0 % (39.0-53.0) 40.4 % (39.0-53.0) Mean Corpuscular Volume 96 fL (79-100) 95 fL (79-100) Mean Corpuscular Hemoglobin 34 pg (25-35) 33 pg (25-35) Mean Corpuscular Hemoglobin Concent 35 g/dL (31-37) 35 g/dL (31-37) Red Cell Distribution Width 13.2 % (11.5-14.5) 13.2 % (11.5-14.5) Platelet Count 210 x10^3/uL (140-400) 191 x10^3/uL (140-400) Neutrophils (%) (Auto) 70 % (31-73) Lymphocytes (%) (Auto) 16 % (24-48) Monocytes (%) (Auto) 11 % (0-9) Eosinophils (%) (Auto) 2 % (0-3) Basophils (%) (Auto) 1 % (0-3) Neutrophils # (Auto) 5.2 x10^3uL (1.8-7.7) Lymphocytes # (Auto) 1.2 x10^3/uL (1.0-4.8) Monocytes # (Auto) 0.8 x10^3/uL (0.0-1.1) Eosinophils # (Auto) 0.1 x10^3/uL (0.0-0.7) Basophils # (Auto) 0.1 x10^3/uL (0.0-0.2) Prothrombin Time 14.3 SEC (11.7-14.0) Prothromb Time International Ratio 1.1 (0.8-1.1) Sodium Level 142 mmol/L (136-145) 141 mmol/L (136-145) Potassium Level 4.5 mmol/L (3.5-5.1) 3.8 mmol/L (3.5-5.1) Chloride Level 106 mmol/L (98-107) 106 mmol/L (98-107) Carbon Dioxide Level 26 mmol/L (21-32) 24 mmol/L (21-32) Anion Gap 10 (6-14) 11 (6-14) Blood Urea Nitrogen 25 mg/dL (8-26) 22 mg/dL (8-26) Creatinine 1.5 mg/dL (0.7-1.3) 1.1 mg/dL (0.7-1.3) Estimated GFR (Cockcroft-Gault) 46.7 66.8 BUN/Creatinine Ratio 17 (6-20) Glucose Level 126 mg/dL (70-99) 96 mg/dL (70-99) Calcium Level 8.8 mg/dL (8.5-10.1) 8.5 mg/dL (8.5-10.1) Total Bilirubin 0.7 mg/dL (0.2-1.0) Aspartate Amino Transf (AST/SGOT) 31 U/L (15-37) Alanine Aminotransferase (ALT/SGPT) 67 U/L (16-63) Alkaline Phosphatase 69 U/L (46-116) Troponin I Quantitative < 0.017 ng/mL (0.000-0.055) < 0.017 ng/mL (0.000-0.055) GD-Wgd-T-Type Natriuretic Peptide 3361 pg/mL (0-124) Total Protein 6.9 g/dL (6.4-8.2) Albumin 3.1 g/dL (3.4-5.0) Albumin/Globulin Ratio 0.8 (1.0-1.7) Thyroid Stimulating Hormone (TSH) 2.011 uIU/mL (0.358-3.74) Urine Collection Type Unknown Urine Color Yellow Urine Clarity Clear Urine pH 6.0 Urine Specific [place] 1.010 Urine Protein Negative mg/dL (NEG-TRACE) Urine Glucose (UA) Negative mg/dL (NEG) Urine Ketones (Stick) Negative mg/dL (NEG) Urine Blood Negative (NEG) Urine Nitrite Negative (NEG) Urine Bilirubin Negative (NEG) Urine Urobilinogen Dipstick 0.2 mg/dL (0.2 mg/dL) Urine Leukocyte Esterase Negative (NEG) Urine RBC 0 /HPF (0-2) Urine WBC Rare /HPF (0-4) Urine Bacteria 0 /HPF (0-FEW) Urine Mucus Slight /LPF Heparin Anti-Xa Act, Unfractionated < 0.27 IU/mL (0.30-0.70) Magnesium Level 2.1 mg/dL (1.8-2.4) Triglycerides Level 83 mg/dL (0-150) Cholesterol Level 119 mg/dL (0-200) LDL Cholesterol, Calculated 70 mg/dL (0-100) VLDL Cholesterol, Calculated 17 mg/dL (0-40) Non-HDL Cholesterol Calculated 87 mg/dL (0-129) HDL Cholesterol 32 mg/dL (40-60) Cholesterol/HDL Ratio 3.7 Medications Active Scripts Medications Dose Route/Sig Max Daily Dose Days Date Category Flonase Allergy Relief (Fluticasone Propionate) 9.9 Ml [place].susp 2 Sprays NS DAILY 08/08/18 Reported Loratadine 10 Mg Tablet 2 Tab PO DAILY 08/08/18 Reported Atenolol 25 Mg Tablet 1 Tab PO DAILY 08/08/18 Reported Simvastatin 20 Mg Tablet 20 Mg PO DAILY 08/08/18 Reported Trazodone Hcl 100 Mg Tablet 1 Tab PO QHS 08/08/18 Reported Doxycycline Hyclate 100 Mg Capsule 1 Cap PO BID 08/08/18 Reported DOLORES MORENO MD Aug 09, 2018 08:02
--- NOTE | 2018-08-09 08:03 | PDOC ---
Provider Note Provider Note [id number] dyspnea afib rvr acute diastolic chf mary acpap qhs for DOLORES Velasco MD Aug 09, 2018 08:03
--- NOTE | 2018-08-09 08:12 | PDOC ---
PROGRESS NOTES Subjective Subjective Feeling better today with improvement in dyspnea. Denied any chest pain. Objective Objective Vital Signs Date Time Temp Pulse Resp B/P (MAP) Pulse Ox O2 Delivery O2 Flow Rate FiO2 08/09/18 03:00 98.0 90 20 108/72 (84) 94 BiPAP/CPAP 98.0 Intake and Output 08/09/18 07:00 Intake Total 1725 ml Output Total 2175 ml Balance -450 ml Intake Oral 600 ml IV Total 1125 ml Output Urine Total 2175 ml Physical Exam Abdomen: Soft, Other (truncal obesity) Heart: Other (AFIB RVR; 2/6 systolic murmur to LLS border) Extremities: No cyanosis, Other (trace edema) General: Alert, Oriented X3 HEENT: Atraumatic, Mucous membr. moist/pink Lungs: Other (basilar crackles; biapap in place) Neuro: Normal speech, Sensation intact Psych/Mental Status: Mental status NL, Mood NL Skin: No breakdown, No significant lesion Assessment Assessment 1. Chest pain: possibly from AFIB/CHF, myocardial infarction has been ruled out. Plan for ischemic evaluation with stress test as an outpatient. 2. Acute diastolic heart failure, likely induced by AFIB. Improved with diuresis. Check 2-D echo to assess LV systolic function. Change Lasix to by mouth tomorrow. 3. AFIB RVR: Newly diagnosed. Rate slightly elevated. Blood pressure marginal. Add digoxin for better rate control and continue metoprolol. Stop heparin infusion and start eliquis for stroke prophylaxis. Plan for outpatient cardioversion in 3-4 weeks. 4. Obesity with PAT: uses CPAP at home 5. HTN: BP controlled 6. Hx of PSVT Plan Plan of Care Problems Medical Problems: (1) Atrial fibrillation with RVR Status: Acute (2) Congestive heart failure Status: Acute Comment Review of Relevant I have reviewed the following items damian (where applicable) has been applied. Labs Laboratory Tests Test 08/08/18 14:15 08/08/18 16:00 08/08/18 18:10 08/09/18 07:10 White Blood Count 7.5 x10^3/uL (4.0-11.0) 6.1 x10^3/uL (4.0-11.0) Red Blood Count 4.28 x10^6/uL (4.30-5.70) 4.24 x10^6/uL (4.30-5.70) Hemoglobin 14.4 g/dL (13.0-17.5) 14.0 g/dL (13.0-17.5) Hematocrit 41.0 % (39.0-53.0) 40.4 % (39.0-53.0) Mean Corpuscular Volume 96 fL (79-100) 95 fL (79-100) Mean Corpuscular Hemoglobin 34 pg (25-35) 33 pg (25-35) Mean Corpuscular Hemoglobin Concent 35 g/dL (31-37) 35 g/dL (31-37) Red Cell Distribution Width 13.2 % (11.5-14.5) 13.2 % (11.5-14.5) Platelet Count 210 x10^3/uL (140-400) 191 x10^3/uL (140-400) Neutrophils (%) (Auto) 70 % (31-73) Lymphocytes (%) (Auto) 16 % (24-48) Monocytes (%) (Auto) 11 % (0-9) Eosinophils (%) (Auto) 2 % (0-3) Basophils (%) (Auto) 1 % (0-3) Neutrophils # (Auto) 5.2 x10^3uL (1.8-7.7) Lymphocytes # (Auto) 1.2 x10^3/uL (1.0-4.8) Monocytes # (Auto) 0.8 x10^3/uL (0.0-1.1) Eosinophils # (Auto) 0.1 x10^3/uL (0.0-0.7) Basophils # (Auto) 0.1 x10^3/uL (0.0-0.2) Prothrombin Time 14.3 SEC (11.7-14.0) Prothromb Time International Ratio 1.1 (0.8-1.1) Sodium Level 142 mmol/L (136-145) 141 mmol/L (136-145) Potassium Level 4.5 mmol/L (3.5-5.1) 3.8 mmol/L (3.5-5.1) Chloride Level 106 mmol/L (98-107) 106 mmol/L (98-107) Carbon Dioxide Level 26 mmol/L (21-32) 24 mmol/L (21-32) Anion Gap 10 (6-14) 11 (6-14) Blood Urea Nitrogen 25 mg/dL (8-26) 22 mg/dL (8-26) Creatinine 1.5 mg/dL (0.7-1.3) 1.1 mg/dL (0.7-1.3) Estimated GFR (Cockcroft-Gault) 46.7 66.8 BUN/Creatinine Ratio 17 (6-20) Glucose Level 126 mg/dL (70-99) 96 mg/dL (70-99) Calcium Level 8.8 mg/dL (8.5-10.1) 8.5 mg/dL (8.5-10.1) Total Bilirubin 0.7 mg/dL (0.2-1.0) Aspartate Amino Transf (AST/SGOT) 31 U/L (15-37) Alanine Aminotransferase (ALT/SGPT) 67 U/L (16-63) Alkaline Phosphatase 69 U/L (46-116) Troponin I Quantitative < 0.017 ng/mL (0.000-0.055) < 0.017 ng/mL (0.000-0.055) RO-Mpw-F-Type Natriuretic Peptide 3361 pg/mL (0-124) Total Protein 6.9 g/dL (6.4-8.2) Albumin 3.1 g/dL (3.4-5.0) Albumin/Globulin Ratio 0.8 (1.0-1.7) Thyroid Stimulating Hormone (TSH) 2.011 uIU/mL (0.358-3.74) Urine Collection Type Unknown Urine Color Yellow Urine Clarity Clear Urine pH 6.0 Urine Specific [place] 1.010 Urine Protein Negative mg/dL (NEG-TRACE) Urine Glucose (UA) Negative mg/dL (NEG) Urine Ketones (Stick) Negative mg/dL (NEG) Urine Blood Negative (NEG) Urine Nitrite Negative (NEG) Urine Bilirubin Negative (NEG) Urine Urobilinogen Dipstick 0.2 mg/dL (0.2 mg/dL) Urine Leukocyte Esterase Negative (NEG) Urine RBC 0 /HPF (0-2) Urine WBC Rare /HPF (0-4) Urine Bacteria 0 /HPF (0-FEW) Urine Mucus Slight /LPF Heparin Anti-Xa Act, Unfractionated < 0.27 IU/mL (0.30-0.70) Magnesium Level 2.1 mg/dL (1.8-2.4) Triglycerides Level 83 mg/dL (0-150) Cholesterol Level 119 mg/dL (0-200) LDL Cholesterol, Calculated 70 mg/dL (0-100) VLDL Cholesterol, Calculated 17 mg/dL (0-40) Non-HDL Cholesterol Calculated 87 mg/dL (0-129) HDL Cholesterol 32 mg/dL (40-60) Cholesterol/HDL Ratio 3.7 Medications Current Medications Acetaminophen (Tylenol) 500 mg PRN Q6HRS PRN PO MILD PAIN / TEMP; Start 08/08/18 at 15:00 Acetaminophen/ Codeine Phosphate (Tylenol #3) 1 tab PRN Q6HRS PRN PO MODERATE - SEVERE PAIN; Start 08/08/18 at 15:00 Aspirin (Ecotrin) 81 mg DAILYWBKFT PO ; Start 08/09/18 at 08:00 Aspirin (Ecotrin) 325 mg 1X ONCE PO Last administered on 08/08/18at 16:47; Start 08/08/18 at 16:15; Stop 08/08/18 at 16:17; Status DC Atorvastatin Calcium (Lipitor) 10 mg QHS PO Last administered on 08/08/18at 21:53; Start 08/08/18 at 21:00 Cetirizine HCl (ZyrTEC) 10 mg PRN DAILY PRN PO ALLERGIES; Start 08/08/18 at 15:15 Digoxin (Lanoxin) 500 mcg 1X ONCE IV Last administered on 08/08/18at 15:36; Start 08/08/18 at 15:15; Stop 08/08/18 at 15:17; Status DC Diltiazem HCl (Cardizem Iv Push) 10 mg 1X ONCE IVP Last administered on 08/08/18at 14:17; Start 08/08/18 at 14:30; Stop 08/08/18 at 16:14; Status DC Diltiazem HCl (Cardizem Iv Push) 25 mg STK-MED ONCE .ROUTE ; Start 08/08/18 at 14:14; Stop 08/08/18 at 14:15; Status DC Diltiazem HCl 125 mg/Dextrose 125 ml @ 5 mls/hr 1X ONCE IV ; Start 08/08/18 at 14:30; Stop 08/09/18 at 15:29 Fluticasone Propionate (Flonase) 2 spray DAILY NS ; Start 08/09/18 at 09:00 Furosemide (Lasix) 40 mg 1X ONCE IVP Last administered on 08/08/18at 14:37; Start 08/08/18 at 14:30; Stop 08/08/18 at 14:31; Status DC Furosemide (Lasix) 40 mg DAILY IVP ; Start 08/09/18 at 09:00 Heparin Sodium (Porcine) (Heparin Sodium) 2,700 unit PRN Q6HRS PRN IV FOR UFH LEVEL LESS THAN 0.2 Last administered on 08/09/18at 01:32; Start 08/08/18 at 16:15 Heparin Sodium/ Dextrose 500 ml @ 0 mls/hr CONT PRN IV SEE I/O RECORD; Start 08/08/18 at 16:15 Metoprolol Tartrate (Lopressor) 25 mg 1X ONCE PO Last administered on 08/08/18at 17:53; Start 08/08/18 at 16:15; Stop 08/08/18 at 16:17; Status DC Metoprolol Tartrate (Lopressor) 25 mg BID PO ; Start 08/09/18 at 09:00 Morphine Sulfate (Morphine Sulfate) 2 mg PRN Q2HR PRN IV PAIN; Start 08/08/18 at 15:00 Ondansetron HCl (Zofran) 4 mg PRN Q6HRS PRN IV NAUSEA/VOMITING; Start 08/08/18 at 15:00 Simvastatin (Zocor) 20 mg HS PO ; Start 08/08/18 at 21:00; Stop 08/08/18 at 21:00; Status DC Sodium Chloride 1,000 ml @ 1,000 mls/hr 1X ONCE IV Last administered on 08/08/18at 14:32; Start 08/08/18 at 14:30; Stop 08/08/18 at 15:29; Status DC Temazepam (Restoril) 7.5 mg PRN QHS PRN PO INSOMNIA; Start 08/08/18 at 15:00; Stop 08/08/18 at 15:09; Status DC Trazodone HCl (Desyrel) 100 mg PRN QHS PRN PO INSOMNIA Last administered on 08/08/18at 21:53; Start 08/08/18 at 15:15 Vitals/I & O Vital Sign - Last 24 Hours 08/08/18 08/08/18 08/08/18 08/08/18 13:51 14:17 14:21 14:23 Temp 98.3 98.3 Pulse 84 145 115 Resp 24 20 B/P (MAP) 105/78 (87) 105/78 89/65 (73) 87/62 (70) Pulse Ox 94 95 O2 Delivery Room Air Room Air 08/08/18 08/08/18 08/08/18 08/08/18 14:28 14:32 14:37 15:00 Pulse 123 114 114 Resp 28 24 20 B/P (MAP) 76/60 (65) 103/79 (87) 95/77 (83) Pulse Ox 94 100 O2 Delivery Room Air Room Air Room Air BiPAP/CPAP 08/08/18 08/08/18 08/08/18 08/08/18 15:36 16:01 17:00 17:28 Temp 98.0 98.0 Pulse 131 109 138 Resp 21 18 B/P (MAP) 112/77 119/87 (98) 124/79 (94) Pulse Ox 98 97 O2 Delivery BiPAP/CPAP Bi-pap Room Air 08/08/18 08/08/18 08/08/18 08/08/18 17:53 19:10 20:00 23:24 Temp 97.9 97.9 Pulse 108 85 106 Resp 21 20 B/P (MAP) 124/79 106/80 (89) 109/65 (80) Pulse Ox 96 89 O2 Delivery Room Air Room Air BiPAP/CPAP 08/09/18 03:00 Temp 98.0 98.0 Pulse 90 Resp 20 B/P (MAP) 108/72 (84) Pulse Ox 94 O2 Delivery BiPAP/CPAP Intake and Output 08/08/18 08/08/18 08/09/18 15:00 23:00 07:00 Intake Total 1000 ml 725 ml Output Total 1475 ml 700 ml Balance -475 ml 25 ml SRIRAM JORGENSEN MD Aug 09, 2018 08:12
--- NOTE | 2018-08-09 08:27 | CONS ---
DATE OF CONSULTATION: 08/09/2018 I was asked to see this 67-year-old gentleman for shortness of breath, obstructive sleep apnea-hypopnea syndrome. HISTORY OF PRESENT ILLNESS: He does have history of [id number] smoking, stopped smoking about 10 years ago. He was diagnosed with obstructive sleep apnea-hypopnea syndrome about 2 years ago. He has been followed by Dr. Werner. For the past month, he has not felt well. He does have shortness of breath at night. He called Dr. Werner's office and there was a suggestion of another sleep study with CPAP/BiPAP titration. He has had paroxysmal nocturnal dyspnea and orthopnea. He presented to the Emergency Room. He was noted to be in AFib with rapid ventricular response. He is now in AFib, but rate is controlled. His shortness of breath has improved. He did use his CPAP last night with no problems. He denies chest pain. He does have occasional cough secondary to postnasal drip. His shortness of breath has improved. PAST MEDICAL HISTORY: Obstructive sleep apnea-hypopnea syndrome, supraventricular tachycardia, and hypertension. ALLERGIES: No known drug allergies. MEDICATIONS: Currently, he is on metoprolol, Lasix, Flonase, aspirin, Lipitor, heparin drip, and Zyrtec. SOCIAL HISTORY: History of [id number] smoking, stopped smoking 10 years ago. FAMILY HISTORY: There is no history of lung disease. REVIEW OF SYSTEMS: As mentioned as above, other systems otherwise negative. PHYSICAL EXAMINATION: GENERAL: This is an overweight gentleman. VITAL SIGNS: His O2 saturation is 94%, respiratory rate 20, heart rate 90, blood pressure 108/72, and temperature 98. HEENT: Normocephalic, atraumatic. Pupils are equal, round, reactive to light. There is shallow oropharynx. Nose is clear. NECK: There is no JVD, lymphadenopathy or thyromegaly. CARDIOVASCULAR: Irregularly irregular rhythm. PMI is nondisplaced. CHEST: Inspection is normal. LUNGS: Clear to auscultation. There is no wheezing. Percussion is within normal limit. ABDOMEN: Soft and obese. Bowel sounds are good. There is no mass. EXTREMITIES: There is no edema. LYMPHATICS: There is no lymphadenopathy. SKIN: Warm. NEUROLOGIC: Alert and oriented. LABORATORY DATA: I reviewed the following lab data: Chest x-ray shows cardiomegaly, increased vascular marking, and right lower lobe atelectasis. WBC is 6.1, hemoglobin 14, and platelets 191. Sodium is 141, potassium 3.8, chloride 106, CO2 of 24, glucose 96, BUN 22, and creatinine 1.1. Troponin is less than 0.017. BNP is 3361. TSH is 2.01. IMPRESSION: 1. Dyspnea secondary to atrial fibrillation with rapid ventricular response and acute diastolic congestive heart failure versus others. 2. Abnormal chest x-ray. I suspect it is secondary to congestive heart failure and atelectasis. 3. Obstructive sleep apnea-hypopnea syndrome. 4. Hypertension. 5. Ex-smoker. 6. History of supraventricular tachycardia. 7. Allergic rhinitis. PLAN AND RECOMMENDATIONS: 1. Titrate FiO2 to keep O2 saturation 92%. 2. Cardiology is on the case. He is on heparin drip and metoprolol. He would require an echocardiogram. 3. Continue his home auto CPAP. He was able to sleep better last night. I suspect his nightly symptoms were secondary to atrial fibrillation with rapid ventricular response and CHF. He may require an overnight oximetry on CPAP before discharge or CPAP titration as an outpatient. 4. Cardiology is consulted. 5. Keep intake less than output. 6. He is on heparin drip per Cardiology. 7. Lose weight and exercise. 8. Pulmonary function test as an outpatient. 9. Flonase at bedtime. The findings and recommendations were discussed with the patient. He understood and agreed to proceed with the plan. I have answered all of his questions. Thank you very much for allowing me to participate in care of this very nice gentleman. DOLORES MORENO M.D. DR: WARREN/rhys JOB#: [id number] / [id number]
[2018-08-09] MEDS: ASPIRIN ENTERIC COATED 81 MG TABLET.DR. PO SCH (08:29)
[2018-08-09] MEDS: METOPROLOL TART IMMED RELEASE 25 MG TABLET. PO SCH ×2 (08:29→20:53)
[2018-08-09] MEDS: FUROSEMIDE 40 MG/4 ML VIAL. IVP SCH (08:30)
[2018-08-09] MEDS: FLUTICASONE 50MCG/NASAL SPRAY 16GM BOTTLE. NS SCH (08:39)
[2018-08-09] MEDS ORDERED: ANTI-COAG MONITOR BY PHARMACY. MC PRN (10:30)
[2018-08-09] MEDS: APIXABAN 5 MG TABLET. PO SCH ×2 (10:38→20:53)
[2018-08-09] MEDS: DIGOXIN 125 MCG TABLET. PO SCH (10:40)
[2018-08-09 11:00] VITALS: BP 111/66
--- NOTE | 2018-08-09 13:45 | PDOC ---
PROGRESS NOTES Chief Complaint Chief Complaint Acute respiratory failure secondary to mild fluid overload with A. fib RVR acute diastolic CHF History SVT on atenolol Dyslipidemia on simvastatin 20 daily at bedtime obesity with recent weight gain-BMI 34.4 tr leg edema on admit, some anasarca History of Present Illness History of Present Illness Lasix, change to PO in AM plan DC on anticoag CVC bed or ICU bed pending above consults Ok for cardiac diet Keep tele Vitals Vitals Vital Signs Date Time Temp Pulse Resp B/P (MAP) Pulse Ox O2 Delivery O2 Flow Rate FiO2 08/09/18 11:00 98.0 93 16 111/66 (81) 92 BiPAP/CPAP 98.0 Physical Exam General: Alert, Oriented X3 Heart: Other (AFIB RVR; 2/6 systolic murmur to LLS border) Abdomen: Soft, Other (truncal obesity) Extremities: No cyanosis, Other (trace edema) Skin: No breakdown, No significant lesion Labs LABS Laboratory Tests Test 08/08/18 14:15 08/08/18 16:00 08/08/18 18:10 08/09/18 07:10 White Blood Count 7.5 x10^3/uL (4.0-11.0) 6.1 x10^3/uL (4.0-11.0) Red Blood Count 4.28 x10^6/uL (4.30-5.70) 4.24 x10^6/uL (4.30-5.70) Hemoglobin 14.4 g/dL (13.0-17.5) 14.0 g/dL (13.0-17.5) Hematocrit 41.0 % (39.0-53.0) 40.4 % (39.0-53.0) Mean Corpuscular Volume 96 fL (79-100) 95 fL (79-100) Mean Corpuscular Hemoglobin 34 pg (25-35) 33 pg (25-35) Mean Corpuscular Hemoglobin Concent 35 g/dL (31-37) 35 g/dL (31-37) Red Cell Distribution Width 13.2 % (11.5-14.5) 13.2 % (11.5-14.5) Platelet Count 210 x10^3/uL (140-400) 191 x10^3/uL (140-400) Neutrophils (%) (Auto) 70 % (31-73) Lymphocytes (%) (Auto) 16 % (24-48) Monocytes (%) (Auto) 11 % (0-9) Eosinophils (%) (Auto) 2 % (0-3) Basophils (%) (Auto) 1 % (0-3) Neutrophils # (Auto) 5.2 x10^3uL (1.8-7.7) Lymphocytes # (Auto) 1.2 x10^3/uL (1.0-4.8) Monocytes # (Auto) 0.8 x10^3/uL (0.0-1.1) Eosinophils # (Auto) 0.1 x10^3/uL (0.0-0.7) Basophils # (Auto) 0.1 x10^3/uL (0.0-0.2) Prothrombin Time 14.3 SEC (11.7-14.0) Prothromb Time International Ratio 1.1 (0.8-1.1) Sodium Level 142 mmol/L (136-145) 141 mmol/L (136-145) Potassium Level 4.5 mmol/L (3.5-5.1) 3.8 mmol/L (3.5-5.1) Chloride Level 106 mmol/L (98-107) 106 mmol/L (98-107) Carbon Dioxide Level 26 mmol/L (21-32) 24 mmol/L (21-32) Anion Gap 10 (6-14) 11 (6-14) Blood Urea Nitrogen 25 mg/dL (8-26) 22 mg/dL (8-26) Creatinine 1.5 mg/dL (0.7-1.3) 1.1 mg/dL (0.7-1.3) Estimated GFR (Cockcroft-Gault) 46.7 66.8 BUN/Creatinine Ratio 17 (6-20) Glucose Level 126 mg/dL (70-99) 96 mg/dL (70-99) Calcium Level 8.8 mg/dL (8.5-10.1) 8.5 mg/dL (8.5-10.1) Total Bilirubin 0.7 mg/dL (0.2-1.0) Aspartate Amino Transf (AST/SGOT) 31 U/L (15-37) Alanine Aminotransferase (ALT/SGPT) 67 U/L (16-63) Alkaline Phosphatase 69 U/L (46-116) Troponin I Quantitative < 0.017 ng/mL (0.000-0.055) < 0.017 ng/mL (0.000-0.055) YL-Byp-V-Type Natriuretic Peptide 3361 pg/mL (0-124) Total Protein 6.9 g/dL (6.4-8.2) Albumin 3.1 g/dL (3.4-5.0) Albumin/Globulin Ratio 0.8 (1.0-1.7) Thyroid Stimulating Hormone (TSH) 2.011 uIU/mL (0.358-3.74) Urine Collection Type Unknown Urine Color Yellow Urine Clarity Clear Urine pH 6.0 Urine Specific [place] 1.010 Urine Protein Negative mg/dL (NEG-TRACE) Urine Glucose (UA) Negative mg/dL (NEG) Urine Ketones (Stick) Negative mg/dL (NEG) Urine Blood Negative (NEG) Urine Nitrite Negative (NEG) Urine Bilirubin Negative (NEG) Urine Urobilinogen Dipstick 0.2 mg/dL (0.2 mg/dL) Urine Leukocyte Esterase Negative (NEG) Urine RBC 0 /HPF (0-2) Urine WBC Rare /HPF (0-4) Urine Bacteria 0 /HPF (0-FEW) Urine Mucus Slight /LPF Heparin Anti-Xa Act, Unfractionated < 0.27 IU/mL (0.30-0.70) Magnesium Level 2.1 mg/dL (1.8-2.4) Triglycerides Level 83 mg/dL (0-150) Cholesterol Level 119 mg/dL (0-200) LDL Cholesterol, Calculated 70 mg/dL (0-100) VLDL Cholesterol, Calculated 17 mg/dL (0-40) Non-HDL Cholesterol Calculated 87 mg/dL (0-129) HDL Cholesterol 32 mg/dL (40-60) Cholesterol/HDL Ratio 3.7 Assessment and Plan Assessmemt and Plan Problems Medical Problems: (1) Atrial fibrillation with RVR Status: Acute (2) Congestive heart failure Status: Acute Comment Review of Relevant I have reviewed the following items damian (where applicable) has been applied. Labs Laboratory Tests Test 08/08/18 14:15 08/08/18 16:00 08/08/18 18:10 08/09/18 07:10 White Blood Count 7.5 x10^3/uL (4.0-11.0) 6.1 x10^3/uL (4.0-11.0) Red Blood Count 4.28 x10^6/uL (4.30-5.70) 4.24 x10^6/uL (4.30-5.70) Hemoglobin 14.4 g/dL (13.0-17.5) 14.0 g/dL (13.0-17.5) Hematocrit 41.0 % (39.0-53.0) 40.4 % (39.0-53.0) Mean Corpuscular Volume 96 fL (79-100) 95 fL (79-100) Mean Corpuscular Hemoglobin 34 pg (25-35) 33 pg (25-35) Mean Corpuscular Hemoglobin Concent 35 g/dL (31-37) 35 g/dL (31-37) Red Cell Distribution Width 13.2 % (11.5-14.5) 13.2 % (11.5-14.5) Platelet Count 210 x10^3/uL (140-400) 191 x10^3/uL (140-400) Neutrophils (%) (Auto) 70 % (31-73) Lymphocytes (%) (Auto) 16 % (24-48) Monocytes (%) (Auto) 11 % (0-9) Eosinophils (%) (Auto) 2 % (0-3) Basophils (%) (Auto) 1 % (0-3) Neutrophils # (Auto) 5.2 x10^3uL (1.8-7.7) Lymphocytes # (Auto) 1.2 x10^3/uL (1.0-4.8) Monocytes # (Auto) 0.8 x10^3/uL (0.0-1.1) Eosinophils # (Auto) 0.1 x10^3/uL (0.0-0.7) Basophils # (Auto) 0.1 x10^3/uL (0.0-0.2) Prothrombin Time 14.3 SEC (11.7-14.0) Prothromb Time International Ratio 1.1 (0.8-1.1) Sodium Level 142 mmol/L (136-145) 141 mmol/L (136-145) Potassium Level 4.5 mmol/L (3.5-5.1) 3.8 mmol/L (3.5-5.1) Chloride Level 106 mmol/L (98-107) 106 mmol/L (98-107) Carbon Dioxide Level 26 mmol/L (21-32) 24 mmol/L (21-32) Anion Gap 10 (6-14) 11 (6-14) Blood Urea Nitrogen 25 mg/dL (8-26) 22 mg/dL (8-26) Creatinine 1.5 mg/dL (0.7-1.3) 1.1 mg/dL (0.7-1.3) Estimated GFR (Cockcroft-Gault) 46.7 66.8 BUN/Creatinine Ratio 17 (6-20) Glucose Level 126 mg/dL (70-99) 96 mg/dL (70-99) Calcium Level 8.8 mg/dL (8.5-10.1) 8.5 mg/dL (8.5-10.1) Total Bilirubin 0.7 mg/dL (0.2-1.0) Aspartate Amino Transf (AST/SGOT) 31 U/L (15-37) Alanine Aminotransferase (ALT/SGPT) 67 U/L (16-63) Alkaline Phosphatase 69 U/L (46-116) Troponin I Quantitative < 0.017 ng/mL (0.000-0.055) < 0.017 ng/mL (0.000-0.055) DQ-Nzj-C-Type Natriuretic Peptide 3361 pg/mL (0-124) Total Protein 6.9 g/dL (6.4-8.2) Albumin 3.1 g/dL (3.4-5.0) Albumin/Globulin Ratio 0.8 (1.0-1.7) Thyroid Stimulating Hormone (TSH) 2.011 uIU/mL (0.358-3.74) Urine Collection Type Unknown Urine Color Yellow Urine Clarity Clear Urine pH 6.0 Urine Specific [place] 1.010 Urine Protein Negative mg/dL (NEG-TRACE) Urine Glucose (UA) Negative mg/dL (NEG) Urine Ketones (Stick) Negative mg/dL (NEG) Urine Blood Negative (NEG) Urine Nitrite Negative (NEG) Urine Bilirubin Negative (NEG) Urine Urobilinogen Dipstick 0.2 mg/dL (0.2 mg/dL) Urine Leukocyte Esterase Negative (NEG) Urine RBC 0 /HPF (0-2) Urine WBC Rare /HPF (0-4) Urine Bacteria 0 /HPF (0-FEW) Urine Mucus Slight /LPF Heparin Anti-Xa Act, Unfractionated < 0.27 IU/mL (0.30-0.70) Magnesium Level 2.1 mg/dL (1.8-2.4) Triglycerides Level 83 mg/dL (0-150) Cholesterol Level 119 mg/dL (0-200) LDL Cholesterol, Calculated 70 mg/dL (0-100) VLDL Cholesterol, Calculated 17 mg/dL (0-40) Non-HDL Cholesterol Calculated 87 mg/dL (0-129) HDL Cholesterol 32 mg/dL (40-60) Cholesterol/HDL Ratio 3.7 Laboratory Tests Test 08/08/18 14:15 08/08/18 16:00 08/08/18 18:10 08/09/18 07:10 White Blood Count 7.5 x10^3/uL (4.0-11.0) 6.1 x10^3/uL (4.0-11.0) Red Blood Count 4.28 x10^6/uL (4.30-5.70) 4.24 x10^6/uL (4.30-5.70) Hemoglobin 14.4 g/dL (13.0-17.5) 14.0 g/dL (13.0-17.5) Hematocrit 41.0 % (39.0-53.0) 40.4 % (39.0-53.0) Mean Corpuscular Volume 96 fL (79-100) 95 fL (79-100) Mean Corpuscular Hemoglobin 34 pg (25-35) 33 pg (25-35) Mean Corpuscular Hemoglobin Concent 35 g/dL (31-37) 35 g/dL (31-37) Red Cell Distribution Width 13.2 % (11.5-14.5) 13.2 % (11.5-14.5) Platelet Count 210 x10^3/uL (140-400) 191 x10^3/uL (140-400) Neutrophils (%) (Auto) 70 % (31-73) Lymphocytes (%) (Auto) 16 % (24-48) Monocytes (%) (Auto) 11 % (0-9) Eosinophils (%) (Auto) 2 % (0-3) Basophils (%) (Auto) 1 % (0-3) Neutrophils # (Auto) 5.2 x10^3uL (1.8-7.7) Lymphocytes # (Auto) 1.2 x10^3/uL (1.0-4.8) Monocytes # (Auto) 0.8 x10^3/uL (0.0-1.1) Eosinophils # (Auto) 0.1 x10^3/uL (0.0-0.7) Basophils # (Auto) 0.1 x10^3/uL (0.0-0.2) Prothrombin Time 14.3 SEC (11.7-14.0) Prothromb Time International Ratio 1.1 (0.8-1.1) Sodium Level 142 mmol/L (136-145) 141 mmol/L (136-145) Potassium Level 4.5 mmol/L (3.5-5.1) 3.8 mmol/L (3.5-5.1) Chloride Level 106 mmol/L (98-107) 106 mmol/L (98-107) Carbon Dioxide Level 26 mmol/L (21-32) 24 mmol/L (21-32) Anion Gap 10 (6-14) 11 (6-14) Blood Urea Nitrogen 25 mg/dL (8-26) 22 mg/dL (8-26) Creatinine 1.5 mg/dL (0.7-1.3) 1.1 mg/dL (0.7-1.3) Estimated GFR (Cockcroft-Gault) 46.7 66.8 BUN/Creatinine Ratio 17 (6-20) Glucose Level 126 mg/dL (70-99) 96 mg/dL (70-99) Calcium Level 8.8 mg/dL (8.5-10.1) 8.5 mg/dL (8.5-10.1) Total Bilirubin 0.7 mg/dL (0.2-1.0) Aspartate Amino Transf (AST/SGOT) 31 U/L (15-37) Alanine Aminotransferase (ALT/SGPT) 67 U/L (16-63) Alkaline Phosphatase 69 U/L (46-116) Troponin I Quantitative < 0.017 ng/mL (0.000-0.055) < 0.017 ng/mL (0.000-0.055) LM-Cqr-S-Type Natriuretic Peptide 3361 pg/mL (0-124) Total Protein 6.9 g/dL (6.4-8.2) Albumin 3.1 g/dL (3.4-5.0) Albumin/Globulin Ratio 0.8 (1.0-1.7) Thyroid Stimulating Hormone (TSH) 2.011 uIU/mL (0.358-3.74) Urine Collection Type Unknown Urine Color Yellow Urine Clarity Clear Urine pH 6.0 Urine Specific [place] 1.010 Urine Protein Negative mg/dL (NEG-TRACE) Urine Glucose (UA) Negative mg/dL (NEG) Urine Ketones (Stick) Negative mg/dL (NEG) Urine Blood Negative (NEG) Urine Nitrite Negative (NEG) Urine Bilirubin Negative (NEG) Urine Urobilinogen Dipstick 0.2 mg/dL (0.2 mg/dL) Urine Leukocyte Esterase Negative (NEG) Urine RBC 0 /HPF (0-2) Urine WBC Rare /HPF (0-4) Urine Bacteria 0 /HPF (0-FEW) Urine Mucus Slight /LPF Heparin Anti-Xa Act, Unfractionated < 0.27 IU/mL (0.30-0.70) Magnesium Level 2.1 mg/dL (1.8-2.4) Triglycerides Level 83 mg/dL (0-150) Cholesterol Level 119 mg/dL (0-200) LDL Cholesterol, Calculated 70 mg/dL (0-100) VLDL Cholesterol, Calculated 17 mg/dL (0-40) Non-HDL Cholesterol Calculated 87 mg/dL (0-129) HDL Cholesterol 32 mg/dL (40-60) Cholesterol/HDL Ratio 3.7 Medications Current Medications Diltiazem HCl (Cardizem Iv Push) 10 mg 1X ONCE IVP Last administered on 08/08/18at 14:17; Start 08/08/18 at 14:30; Stop 08/08/18 at 16:14; Status DC Diltiazem HCl 125 mg/Dextrose 125 ml @ 5 mls/hr 1X ONCE IV ; Start 08/08/18 at 14:30; Stop 08/09/18 at 15:29 Diltiazem HCl (Cardizem Iv Push) 25 mg STK-MED ONCE .ROUTE ; Start 08/08/18 at 14:14; Stop 08/08/18 at 14:15; Status DC Sodium Chloride 1,000 ml @ 1,000 mls/hr 1X ONCE IV Last administered on 08/08/18at 14:32; Start 08/08/18 at 14:30; Stop 08/08/18 at 15:29; Status DC Furosemide (Lasix) 40 mg 1X ONCE IVP Last administered on 08/08/18at 14:37; Start 08/08/18 at 14:30; Stop 08/08/18 at 14:31; Status DC Acetaminophen (Tylenol) 500 mg PRN Q6HRS PRN PO MILD PAIN / TEMP; Start 08/08/18 at 15:00 Acetaminophen/ Codeine Phosphate (Tylenol #3) 1 tab PRN Q6HRS PRN PO MODERATE - SEVERE PAIN; Start 08/08/18 at 15:00 Ondansetron HCl (Zofran) 4 mg PRN Q6HRS PRN IV NAUSEA/VOMITING; Start 08/08/18 at 15:00 Morphine Sulfate (Morphine Sulfate) 2 mg PRN Q2HR PRN IV PAIN; Start 08/08/18 at 15:00 Temazepam (Restoril) 7.5 mg PRN QHS PRN PO INSOMNIA; Start 08/08/18 at 15:00; Stop 08/08/18 at 15:09; Status DC Simvastatin (Zocor) 20 mg HS PO ; Start 08/08/18 at 21:00; Stop 08/08/18 at 21:00; Status DC Trazodone HCl (Desyrel) 100 mg PRN QHS PRN PO INSOMNIA Last administered on 08/08/18at 21:53; Start 08/08/18 at 15:15 Cetirizine HCl (ZyrTEC) 10 mg PRN DAILY PRN PO ALLERGIES; Start 08/08/18 at 15:15 Fluticasone Propionate (Flonase) 2 spray DAILY NS ; Start 08/09/18 at 09:00 Atorvastatin Calcium (Lipitor) 10 mg QHS PO Last administered on 08/08/18at 21:53; Start 08/08/18 at 21:00 Digoxin (Lanoxin) 500 mcg 1X ONCE IV Last administered on 08/08/18at 15:36; Start 08/08/18 at 15:15; Stop 08/08/18 at 15:17; Status DC Furosemide (Lasix) 40 mg DAILY IVP Last administered on 08/09/18at 08:30; Start 08/09/18 at 09:00 Heparin Sodium/ Dextrose 500 ml @ 0 mls/hr CONT PRN IV SEE I/O RECORD; Start 08/08/18 at 16:15; Stop 08/09/18 at 10:13; Status DC Heparin Sodium (Porcine) (Heparin Sodium) 2,700 unit PRN Q6HRS PRN IV FOR UFH LEVEL LESS THAN 0.2 Last administered on 08/09/18at 01:32; Start 08/08/18 at 16:15; Stop 08/09/18 at 10:13; Status DC Aspirin (Ecotrin) 325 mg 1X ONCE PO Last administered on 08/08/18at 16:47; Start 08/08/18 at 16:15; Stop 08/08/18 at 16:17; Status DC Aspirin (Ecotrin) 81 mg DAILYWBKFT PO Last administered on 08/09/18at 08:29; Start 08/09/18 at 08:00 Metoprolol Tartrate (Lopressor) 25 mg 1X ONCE PO Last administered on 08/08/18at 17:53; Start 08/08/18 at 16:15; Stop 08/08/18 at 16:17; Status DC Metoprolol Tartrate (Lopressor) 25 mg BID PO Last administered on 08/09/18at 08:29; Start 08/09/18 at 09:00 Apixaban (Eliquis) 5 mg BID PO Last administered on 08/09/18at 10:38; Start 08/09/18 at 10:15 Digoxin (Lanoxin) 125 mcg DAILY PO Last administered on 08/09/18at 10:40; Start 08/09/18 at 10:15 Info (Anti-Coagulation Monitoring By Pharmacy) 1 each PRN DAILY PRN MC SEE COMMENTS; Start 08/09/18 at 10:30 Active Scripts Active Reported Flonase Allergy Relief (Fluticasone Propionate) 9.9 Ml [place].susp 2 Sprays NS DAILY Loratadine 10 Mg Tablet 2 Tab PO DAILY Atenolol 25 Mg Tablet 1 Tab PO DAILY Simvastatin 20 Mg Tablet 20 Mg PO DAILY Trazodone Hcl 100 Mg Tablet 1 Tab PO QHS Doxycycline Hyclate 100 Mg Capsule 1 Cap PO BID Vitals/I & O Vital Sign - Last 24 Hours 6/7/19 6/7/19 6/7/19 6/7/19 13:51 14:17 14:21 14:23 Temp 98.3 98.3 Pulse 84 145 115 Resp 24 20 B/P (MAP) 105/78 (87) 105/78 89/65 (73) 87/62 (70) Pulse Ox 94 95 O2 Delivery Room Air Room Air 08/08/18 08/08/18 08/08/18 08/08/18 14:28 14:32 14:37 15:00 Pulse 123 114 114 Resp 28 24 20 B/P (MAP) 76/60 (65) 103/79 (87) 95/77 (83) Pulse Ox 94 100 O2 Delivery Room Air Room Air Room Air BiPAP/CPAP 08/08/18 08/08/18 08/08/18 08/08/18 15:36 16:01 17:00 17:28 Temp 98.0 98.0 Pulse 131 109 138 Resp 21 18 B/P (MAP) 112/77 119/87 (98) 124/79 (94) Pulse Ox 98 97 O2 Delivery BiPAP/CPAP Bi-pap Room Air 08/08/18 08/08/18 08/08/18 08/08/18 17:53 19:10 20:00 23:24 Temp 97.9 97.9 Pulse 108 85 106 Resp 21 20 B/P (MAP) 124/79 106/80 (89) 109/65 (80) Pulse Ox 96 89 O2 Delivery Room Air Room Air BiPAP/CPAP 08/09/18 08/09/18 08/09/18 08/09/18 03:00 07:00 08:00 08:29 Temp 98.0 97.7 98.0 97.7 Pulse 90 90 113 Resp 20 12 B/P (MAP) 108/72 (84) 120/78 (92) 120/78 Pulse Ox 94 94 O2 Delivery BiPAP/CPAP BiPAP/CPAP Room Air 08/09/18 08/09/18 10:40 11:00 Temp 98.0 98.0 Pulse 113 93 Resp 16 B/P (MAP) 120/78 111/66 (81) Pulse Ox 92 O2 Delivery BiPAP/CPAP Intake and Output 08/08/18 08/08/18 08/09/18 15:00 23:00 07:00 Intake Total 1000 ml 725 ml Output Total 1475 ml 700 ml Balance -475 ml 25 ml DANIEL BLANTON MD Aug 09, 2018 13:45
[2018-08-09 15:00] VITALS: BP 110/72
[2018-08-09 19:37] VITALS: BP 123/64
[2018-08-09] MEDS: ATORVASTATIN CALCIUM 10 MG TABLET. PO SCH (20:52)
[2018-08-09] MEDS: traZODone 100 MG TABLET. PO PRN (22:10)
[2018-08-09 23:00] VITALS: BP 111/66
[2018-08-10 02:55] VITALS: BP 109/73
[2018-08-10 05:53] LABS: CALCIUM 8.6 mg/dL (8.5-10.1); GFR 74.5; POTASSIUM 3.7 mmol/L (3.5-5.1)
[2018-08-10 07:00] VITALS: BP 108/74
--- NOTE | 2018-08-10 07:45 | PDOC ---
PULMONARY PROGRESS NOTES Subjective slept well, tolerated acpap well. no sob, occ cough, has post nasal drip, still in afib, hr at times high Vitals Vital Signs Date Time Temp Pulse Resp B/P (MAP) Pulse Ox O2 Delivery O2 Flow Rate FiO2 08/10/18 02:55 97.4 90 18 109/73 (85) 97 BiPAP/CPAP 97.4 ROS: No Nausea General: Alert, Oriented X4 HEENT: Other (nc at perrl) Lungs: Clear Cardiovascular: Other (irreg irreg) Abdomen: Soft, Non-tender Neuro Exam: Alert Extremities: No Edema Skin: Warm Labs Laboratory Tests Test 08/08/18 14:15 08/08/18 16:00 08/08/18 18:10 08/09/18 07:10 White Blood Count 7.5 x10^3/uL (4.0-11.0) 6.1 x10^3/uL (4.0-11.0) Red Blood Count 4.28 x10^6/uL (4.30-5.70) 4.24 x10^6/uL (4.30-5.70) Hemoglobin 14.4 g/dL (13.0-17.5) 14.0 g/dL (13.0-17.5) Hematocrit 41.0 % (39.0-53.0) 40.4 % (39.0-53.0) Mean Corpuscular Volume 96 fL (79-100) 95 fL (79-100) Mean Corpuscular Hemoglobin 34 pg (25-35) 33 pg (25-35) Mean Corpuscular Hemoglobin Concent 35 g/dL (31-37) 35 g/dL (31-37) Red Cell Distribution Width 13.2 % (11.5-14.5) 13.2 % (11.5-14.5) Platelet Count 210 x10^3/uL (140-400) 191 x10^3/uL (140-400) Neutrophils (%) (Auto) 70 % (31-73) Lymphocytes (%) (Auto) 16 % (24-48) Monocytes (%) (Auto) 11 % (0-9) Eosinophils (%) (Auto) 2 % (0-3) Basophils (%) (Auto) 1 % (0-3) Neutrophils # (Auto) 5.2 x10^3uL (1.8-7.7) Lymphocytes # (Auto) 1.2 x10^3/uL (1.0-4.8) Monocytes # (Auto) 0.8 x10^3/uL (0.0-1.1) Eosinophils # (Auto) 0.1 x10^3/uL (0.0-0.7) Basophils # (Auto) 0.1 x10^3/uL (0.0-0.2) Prothrombin Time 14.3 SEC (11.7-14.0) Prothromb Time International Ratio 1.1 (0.8-1.1) Sodium Level 142 mmol/L (136-145) 141 mmol/L (136-145) Potassium Level 4.5 mmol/L (3.5-5.1) 3.8 mmol/L (3.5-5.1) Chloride Level 106 mmol/L (98-107) 106 mmol/L (98-107) Carbon Dioxide Level 26 mmol/L (21-32) 24 mmol/L (21-32) Anion Gap 10 (6-14) 11 (6-14) Blood Urea Nitrogen 25 mg/dL (8-26) 22 mg/dL (8-26) Creatinine 1.5 mg/dL (0.7-1.3) 1.1 mg/dL (0.7-1.3) Estimated GFR (Cockcroft-Gault) 46.7 66.8 BUN/Creatinine Ratio 17 (6-20) Glucose Level 126 mg/dL (70-99) 96 mg/dL (70-99) Calcium Level 8.8 mg/dL (8.5-10.1) 8.5 mg/dL (8.5-10.1) Total Bilirubin 0.7 mg/dL (0.2-1.0) Aspartate Amino Transf (AST/SGOT) 31 U/L (15-37) Alanine Aminotransferase (ALT/SGPT) 67 U/L (16-63) Alkaline Phosphatase 69 U/L (46-116) Troponin I Quantitative < 0.017 ng/mL (0.000-0.055) < 0.017 ng/mL (0.000-0.055) DV-Kfl-H-Type Natriuretic Peptide 3361 pg/mL (0-124) Total Protein 6.9 g/dL (6.4-8.2) Albumin 3.1 g/dL (3.4-5.0) Albumin/Globulin Ratio 0.8 (1.0-1.7) Thyroid Stimulating Hormone (TSH) 2.011 uIU/mL (0.358-3.74) Urine Collection Type Unknown Urine Color Yellow Urine Clarity Clear Urine pH 6.0 Urine Specific [place] 1.010 Urine Protein Negative mg/dL (NEG-TRACE) Urine Glucose (UA) Negative mg/dL (NEG) Urine Ketones (Stick) Negative mg/dL (NEG) Urine Blood Negative (NEG) Urine Nitrite Negative (NEG) Urine Bilirubin Negative (NEG) Urine Urobilinogen Dipstick 0.2 mg/dL (0.2 mg/dL) Urine Leukocyte Esterase Negative (NEG) Urine RBC 0 /HPF (0-2) Urine WBC Rare /HPF (0-4) Urine Bacteria 0 /HPF (0-FEW) Urine Mucus Slight /LPF Heparin Anti-Xa Act, Unfractionated < 0.27 IU/mL (0.30-0.70) Magnesium Level 2.1 mg/dL (1.8-2.4) Triglycerides Level 83 mg/dL (0-150) Cholesterol Level 119 mg/dL (0-200) LDL Cholesterol, Calculated 70 mg/dL (0-100) VLDL Cholesterol, Calculated 17 mg/dL (0-40) Non-HDL Cholesterol Calculated 87 mg/dL (0-129) HDL Cholesterol 32 mg/dL (40-60) Cholesterol/HDL Ratio 3.7 Test 08/10/18 04:25 Sodium Level 141 mmol/L (136-145) Potassium Level 3.7 mmol/L (3.5-5.1) Chloride Level 105 mmol/L (98-107) Carbon Dioxide Level 24 mmol/L (21-32) Anion Gap 12 (6-14) Blood Urea Nitrogen 20 mg/dL (8-26) Creatinine 1.0 mg/dL (0.7-1.3) Estimated GFR (Cockcroft-Gault) 74.5 Glucose Level 91 mg/dL (70-99) Calcium Level 8.6 mg/dL (8.5-10.1) Magnesium Level 2.0 mg/dL (1.8-2.4) Laboratory Tests Test 6/9/19 04:25 Sodium Level 141 mmol/L (136-145) Potassium Level 3.7 mmol/L (3.5-5.1) Chloride Level 105 mmol/L (98-107) Carbon Dioxide Level 24 mmol/L (21-32) Anion Gap 12 (6-14) Blood Urea Nitrogen 20 mg/dL (8-26) Creatinine 1.0 mg/dL (0.7-1.3) Estimated GFR (Cockcroft-Gault) 74.5 Glucose Level 91 mg/dL (70-99) Calcium Level 8.6 mg/dL (8.5-10.1) Magnesium Level 2.0 mg/dL (1.8-2.4) Medications Active Scripts Medications Dose Route/Sig Max Daily Dose Days Date Category Flonase Allergy Relief (Fluticasone Propionate) 9.9 Ml [place].susp 2 Sprays NS DAILY 08/08/18 Reported Loratadine 10 Mg Tablet 2 Tab PO DAILY 08/08/18 Reported Atenolol 25 Mg Tablet 1 Tab PO DAILY 08/08/18 Reported Simvastatin 20 Mg Tablet 20 Mg PO DAILY 08/08/18 Reported Trazodone Hcl 100 Mg Tablet 1 Tab PO QHS 08/08/18 Reported Doxycycline Hyclate 100 Mg Capsule 1 Cap PO BID 08/08/18 Reported Impression . IMPRESSION: 1. Dyspnea secondary to atrial fibrillation with rapid ventricular response and acute diastolic congestive heart failure versus others. 2. Abnormal chest x-ray. I suspect it is secondary to congestive heart failure and atelectasis. 3. Obstructive sleep apnea-hypopnea syndrome. 4. Hypertension. 5. Ex-smoker. 6. History of supraventricular tachycardia. 7. Allergic rhinitis. Plan . PLAN AND RECOMMENDATIONS: 1. Titrate FiO2 to keep O2 saturation 92%. 2. He is on elliquis, metoprolol. He would require an echocardiogram. 3. Continue his home auto CPAP. He was able to sleep better last night. I suspect his nightly symptoms were secondary to atrial fibrillation with rapid ventricular response and CHF. 4. follow Cardiology recommendation 5. Keep intake less than output. 6. cont eliquis per Cardiology. 7. Lose weight and exercise. 8. Pulmonary function test as an outpatient. 9. Flonase at bedtime. discussed w rn, pt DOLORES MORENO MD Aug 10, 2018 07:45
[2018-08-10] MEDS: APIXABAN 5 MG TABLET. PO SCH (08:21)
[2018-08-10] MEDS: ASPIRIN ENTERIC COATED 81 MG TABLET.DR. PO SCH (08:21)
[2018-08-10] MEDS: METOPROLOL TART IMMED RELEASE 25 MG TABLET. PO SCH (08:21)
[2018-08-10] MEDS: DIGOXIN 125 MCG TABLET. PO SCH (08:21)
[2018-08-10] MEDS: FUROSEMIDE 40 MG/4 ML VIAL. IVP SCH (08:22)
[2018-08-10] MEDS: FLUTICASONE 50MCG/NASAL SPRAY 16GM BOTTLE. NS SCH (08:23)
[2018-08-10 10:46] VITALS: BP 100/64
[2018-08-10] MEDS ORDERED: DIGO125T PO (12:14)
[2018-08-10] MEDS ORDERED: APIX5TAB PO (12:14)
[2018-08-10] MEDS ORDERED: FURO-68 PO (12:14)
[2018-08-10] MEDS ORDERED: METO25TA4 PO (12:14)
[2018-08-10] MEDS ORDERED: ASPI-612 PO (12:14)
[2018-08-10] MEDS ORDERED: METO50TA6 PO (12:29)
[2018-08-10] MEDS ORDERED: METOPROLOL TART IMMED RELEASE 25 MG TABLET. PO ONE ×2 (12:30)
--- NOTE | 2018-08-10 12:30 | PDOC ---
PROGRESS NOTES Subjective Subjective Denied any chest pain. Dyspnea resolved. Objective Objective Vital Signs Date Time Temp Pulse Resp B/P (MAP) Pulse Ox O2 Delivery O2 Flow Rate FiO2 08/10/18 10:46 98.0 75 20 100/64 (76) 97 BiPAP/CPAP 98.0 Intake and Output 08/10/18 06:59 Intake Total 700 ml Output Total 1075 ml Balance -375 ml Intake Oral 700 ml Output Urine Total 1075 ml Physical Exam Abdomen: Soft, Other (truncal obesity) Heart: Other (AFIB RVR; 2/6 systolic murmur to LLS border) Extremities: No cyanosis, Other (trace edema) General: Alert, Oriented X3 HEENT: Atraumatic, Mucous membr. moist/pink Lungs: Other (basilar crackles; biapap in place) Neuro: Normal speech, Sensation intact Psych/Mental Status: Mental status NL, Mood NL Skin: No breakdown, No significant lesion Assessment Assessment 1. Chest pain: possibly from AFIB/CHF, myocardial infarction has been ruled out. Plan for ischemic evaluation with stress test as an outpatient. 2. Acute diastolic heart failure, likely induced by AFIB. Improved with diuresis. 2-D echo showed normal LV systolic function. Change Lasix to by mouth. 3. AFIB RVR: Newly diagnosed. Heart rate better controlled. Continue eliquis for stroke prophylaxis. Plan for outpatient cardioversion in 3-4 weeks. 4. Obesity with PAT: uses CPAP at home 5. HTN: BP controlled 6. Hx of PSVT Okay for discharge from cardiac standpoint. Follow-up in 1 month. Plan Plan of Care Problems Medical Problems: (1) Atrial fibrillation with RVR Status: Acute (2) Congestive heart failure Status: Acute Comment Review of Relevant I have reviewed the following items damian (where applicable) has been applied. Labs Laboratory Tests Test 08/10/18 04:25 Sodium Level 141 mmol/L (136-145) Potassium Level 3.7 mmol/L (3.5-5.1) Chloride Level 105 mmol/L (98-107) Carbon Dioxide Level 24 mmol/L (21-32) Anion Gap 12 (6-14) Blood Urea Nitrogen 20 mg/dL (8-26) Creatinine 1.0 mg/dL (0.7-1.3) Estimated GFR (Cockcroft-Gault) 74.5 Glucose Level 91 mg/dL (70-99) Calcium Level 8.6 mg/dL (8.5-10.1) Magnesium Level 2.0 mg/dL (1.8-2.4) Medications Current Medications Metoprolol Tartrate (Lopressor) 25 mg 1X ONCE PO ; Start 08/10/18 at 12:30; Stop 08/10/18 at 12:31; Status UNV Vitals/I & O Vital Sign - Last 24 Hours 08/09/18 08/09/18 08/09/18 08/09/18 15:00 19:37 20:09 20:53 Temp 97.1 98.0 97.1 98.0 Pulse 63 69 107 Resp 20 20 B/P (MAP) 110/72 (85) 123/64 (83) 123/64 Pulse Ox 92 94 O2 Delivery BiPAP/CPAP Room Air Room Air 08/09/18 08/10/18 08/10/18 08/10/18 23:00 02:55 07:00 08:00 Temp 97.4 97.6 97.4 97.6 Pulse 102 90 82 Resp 20 18 16 B/P (MAP) 111/66 (81) 109/73 (85) 108/74 (85) Pulse Ox 95 97 94 O2 Delivery BiPAP/CPAP BiPAP/CPAP BiPAP/CPAP Room Air 08/10/18 08/10/18 08/10/18 08:21 08:21 10:46 Temp 98.0 98.0 Pulse 82 82 75 Resp 20 B/P (MAP) 108/74 108/74 100/64 (76) Pulse Ox 97 O2 Delivery BiPAP/CPAP Intake and Output 08/09/18 08/09/18 08/10/18 14:59 22:59 06:59 Intake Total 300 ml 400 ml Output Total 1075 ml Balance 300 ml -675 ml SRIRAM JORGENSEN MD Aug 10, 2018 12:30
[2018-08-10 14:50] VITALS: BP 107/66
--- NOTE | 2018-08-10 16:41 | NUR ---
Discharge Note: MATEO JUAREZ Discharge instructions and discharge home medications reviewed with Patient and a copy given. All questions have been answered and understanding verbalized. The following instructions and handouts were given. Discontinued lines and drains. Patient discharged to home self care.
--- NOTE | 2018-08-10 17:56 | PDOC3 ---
Discharge Summary Visit Information Date of Admission: Aug 08, 2018 Date of Discharge: Aug 10, 2018 Admitting Diagnosis: acute hypoxia Final Diagnosis Acute respiratory failure secondary to mild fluid overload with A. fib RVR w/ acute diastolic CHF prior History SVT on atenolol Dyslipidemia on simvastatin 20 daily at bedtime obesity with recent weight gain-BMI 34.4 tr leg edema on admit, some anasarca Problems Medical Problems: (1) Atrial fibrillation with RVR Status: Acute (2) Congestive heart failure Status: Acute Brief Hospital Course Allergies Allergies Coded Allergies Type Severity Reaction Last Updated Verified No Known Drug Allergies 08/08/18 No Vital Signs Vital Signs Date Time Temp Pulse Resp B/P (MAP) Pulse Ox O2 Delivery O2 Flow Rate FiO2 08/10/18 14:50 98.1 94 20 107/66 (80) 95 BiPAP/CPAP 98.1 Lab Results Laboratory Tests Test 08/08/18 18:10 08/09/18 07:10 08/10/18 04:25 Troponin I Quantitative < 0.017 ng/mL (0.000-0.055) White Blood Count 6.1 x10^3/uL (4.0-11.0) Red Blood Count 4.24 x10^6/uL (4.30-5.70) Hemoglobin 14.0 g/dL (13.0-17.5) Hematocrit 40.4 % (39.0-53.0) Mean Corpuscular Volume 95 fL (79-100) Mean Corpuscular Hemoglobin 33 pg (25-35) Mean Corpuscular Hemoglobin Concent 35 g/dL (31-37) Red Cell Distribution Width 13.2 % (11.5-14.5) Platelet Count 191 x10^3/uL (140-400) Heparin Anti-Xa Act, Unfractionated < 0.27 IU/mL (0.30-0.70) Sodium Level 141 mmol/L (136-145) 141 mmol/L (136-145) Potassium Level 3.8 mmol/L (3.5-5.1) 3.7 mmol/L (3.5-5.1) Chloride Level 106 mmol/L (98-107) 105 mmol/L (98-107) Carbon Dioxide Level 24 mmol/L (21-32) 24 mmol/L (21-32) Anion Gap 11 (6-14) 12 (6-14) Blood Urea Nitrogen 22 mg/dL (8-26) 20 mg/dL (8-26) Creatinine 1.1 mg/dL (0.7-1.3) 1.0 mg/dL (0.7-1.3) Estimated GFR (Cockcroft-Gault) 66.8 74.5 Glucose Level 96 mg/dL (70-99) 91 mg/dL (70-99) Calcium Level 8.5 mg/dL (8.5-10.1) 8.6 mg/dL (8.5-10.1) Magnesium Level 2.1 mg/dL (1.8-2.4) 2.0 mg/dL (1.8-2.4) Triglycerides Level 83 mg/dL (0-150) Cholesterol Level 119 mg/dL (0-200) LDL Cholesterol, Calculated 70 mg/dL (0-100) VLDL Cholesterol, Calculated 17 mg/dL (0-40) Non-HDL Cholesterol Calculated 87 mg/dL (0-129) HDL Cholesterol 32 mg/dL (40-60) Cholesterol/HDL Ratio 3.7 Laboratory Tests Test 08/10/18 04:25 Sodium Level 141 mmol/L (136-145) Potassium Level 3.7 mmol/L (3.5-5.1) Chloride Level 105 mmol/L (98-107) Carbon Dioxide Level 24 mmol/L (21-32) Anion Gap 12 (6-14) Blood Urea Nitrogen 20 mg/dL (8-26) Creatinine 1.0 mg/dL (0.7-1.3) Estimated GFR (Cockcroft-Gault) 74.5 Glucose Level 91 mg/dL (70-99) Calcium Level 8.6 mg/dL (8.5-10.1) Magnesium Level 2.0 mg/dL (1.8-2.4) Brief Hospital Course Mr. Ann is a 67 old admti with acute CHF sx, dyspnea, and afib RVR, with acute symptoms. rate control with metoprolol and dig, BP relatively low, cardizem not started symptoms markedly improved, poor rate control on metoprolol 25 bid, increased to 50 for DC f/u CV and primary care Discharge Information Condition at Discharge: Improved Follow Up: Weeks Disposition/Orders: D/C to Home Scheduled Apixaban (Eliquis) 5 Mg Tablet, 5 MG PO BID for atrial fibrillation, #60 Ref 1 Prescribed by: DANIEL BLANTON on 08/10/18 1214 Aspirin (Aspirin Ec) 81 Mg Tablet.dr, 81 MG PO DAILYWBKFT for cardiac, #100 Prescribed by: DANIEL BLANTON on 08/10/18 1214 Digoxin (Digoxin) 125 Mcg Tablet, 125 MCG PO DAILY for atrial fibrillation, #30 Ref 2 Prescribed by: DANIEL BLANTON on 08/10/18 1214 Fluticasone Propionate (Flonase Allergy Relief) 9.9 Ml Drake.susp, 2 SPRAYS NS DAILY, (Reported) Entered as Reported by: OSMANI PA on 08/08/181508 Last Action: New Order on 08/08/181508 by OSMANI PA Furosemide (Lasix) 40 Mg Tablet, 1 TAB PO DAILY for CHF, #30 Ref 1 Prescribed by: DANIEL BLANTON on 08/10/18 1214 Loratadine (Loratadine) 10 Mg Tablet, 2 TAB PO DAILY, #30 Ref 5 (Reported) Entered as Reported by: OSMANI PA on 08/08/181508 Last Action: New Order on 08/08/181508 by OSMANI PA Metoprolol Tartrate (Metoprolol Tartrate) 50 Mg Tablet, 1 TAB PO BID for atrial fibrillation, #60 Ref 1 Prescribed by: DANIEL BLANTON on 08/10/18 1229 Simvastatin (Simvastatin) 20 Mg Tablet, 20 MG PO DAILY for FOR CHOLESTEROL, #30 Ref 0 (Reported) Entered as Reported by: OSMANI PA on 08/08/181508 Last Action: New Order on 08/08/181508 by OSMANI PA Trazodone Hcl (Trazodone Hcl) 100 Mg Tablet, 1 TAB PO QHS, #30 Ref 1 (Reported) Entered as Reported by: OSMANI PA on 08/08/181508 Last Action: New Order on 08/08/181508 by OSMANI PA Discontinued Medications Atenolol (Atenolol) 25 Mg Tablet, 1 TAB PO DAILY, #30 Ref 5 (Reported) Entered as Reported by: OSMANI PA on 08/08/181508 Last Action: New Order on 08/08/181508 by OSMANI PA Doxycycline Hyclate (Doxycycline Hyclate) 100 Mg Capsule, 1 CAP PO BID, #14 (Reported) Entered as Reported by: OSMANI PA on 08/08/181508 Last Action: New Order on 08/08/181508 by OSMANI PA Patient Instructions Patient Instructions > 30 min face to face DANIEL BLANTON MD Aug 10, 2018 17:56
[2018-08-11] MEDS ORDERED: FUROSEMIDE 20 MG TABLET PO SCH (09:00)
== END 2018-08-10 16:45 | disposition home or self-care (01) | DRG 291 ==
LOC: ER 13:43 → 2 SOUTH 15:30
PROVIDERS: ADMIT Internal Medicine; ATTEND Internal Medicine
PROC: 5A09357 Assistance with Respiratory Ventilation, Less than 24 Consecutive Hours, Continuous Positive Airway Pressure (ICD-10-PCS; principal; 2018-08-08)
PROC: 5A09357 Assistance with Respiratory Ventilation, Less than 24 Consecutive Hours, Continuous Positive Airway Pressure (ICD-10-PCS; 2018-08-09)
DX: I11.0 Hypertensive heart disease with heart failure (principal); J96.01 Acute respiratory failure with hypoxia; N17.9 Acute kidney failure, unspecified; I50.33 Acute on chronic diastolic (congestive) heart failure; I48.91 Unspecified atrial fibrillation; E66.01 Morbid (severe) obesity due to excess calories; E78.00 Pure hypercholesterolemia, unspecified; E78.5 Hyperlipidemia, unspecified; G47.33 Obstructive sleep apnea (adult) (pediatric); J30.9 Allergic rhinitis, unspecified; M19.042 Primary osteoarthritis, left hand; M19.041 Primary osteoarthritis, right hand; Z87.891 Personal history of nicotine dependence; Z79.899 Other long term (current) drug therapy; Z68.33 Body mass index [BMI] 33.0-33.9, adult; Z82.3 Family history of stroke; Z82.49 Family history of ischemic heart disease and other diseases of the circulatory system
CPT/HCPCS: 36415; 71045; 80048; 80053; 80061; 81001; 83735; 83880; 84443; 84484; 85025; 85027; 85520; 85610; 93005; 93306; 94660; 96361; 96374; 96375; J1160; J1644; J1940; J3490; J7030; 99285-25

== ENCOUNTER → 2018-08-13 | Outpatient (CLI) | payer MEDICARE, OTHER ==
[2018-08-10 14:50] VITALS: BP 107/66
[~2018-08-13] MED LIST: APIX5TAB PO; ASPI-612 PO; ATEN25TA PO; DIGO125T PO; DOXY100C2 PO; FLUT9.9S NS; FURO-68 PO; LORA10TA3 PO; METO25TA4 PO; METO50TA6 PO; SIMV20TA3 PO; TRAZ-86 PO
--- NOTE | 2018-08-15 09:16 | SLEEP ---
DATE OF STUDY: 08/13/2018 OBJECTIVE: The patient is a 68-year-old male here for a CPAP titration study. He is already on BiPAP at 20/5, auto titrating at home with Mesfin-Akers respirations. Height 5 feet 10 inches, weight 233 pounds, BMI 34. [place] Sleep Score 6. Sleep architecture is characterized by sleep efficiency of 65% across the 7.5 hours of recording time. Stage volumes are appropriate for age. Sleep onset latency is 4 minutes. Respiratory monitoring shows a total of 64 events, mostly obstructive in nature for an apnea-hypopnea index of 13.1 events per hour of sleep. The patient was very poorly tolerant of CPAP and BiPAP and continued to have markedly high apnea-hypopnea index even on a setting of 20/16. On that setting, the apnea-hypopnea index was 50 events per hour of sleep. The minimum oxygen saturation is 88%. No significant periodic limb movements of sleep are observed. The patient is observed to have atrial fibrillation. IMPRESSION: Abnormal polysomnogram showing obstructive sleep apnea and hypopnea, unsuccessfully treated with BiPAP. RECOMMENDATION: 1. The patient could try BiPAP using a Respironics DreamWear full face mask, medium size. 2. He should avoid sedatives and alcohol and pursue weight loss. Thank you for letting us help with the patient's care. LASHON TITUS MD DR: JANICE/rhys JOB#: [id number] / [id number] NELLY Celis MD, SHAWN MD
== END | disposition home or self-care (01) ==
LOC: RT 18:04
PROVIDERS: ATTEND Internal Medicine Critical Care Medicine
DX: G47.33 Obstructive sleep apnea (adult) (pediatric) (principal)
CPT/HCPCS: 95811

== ENCOUNTER → 2018-08-14 | Outpatient (CLI) | payer MEDICARE, OTHER ==
[2018-08-10 14:50] VITALS: BP 107/66
[~2018-08-14] MED LIST changes: +CONTRAST GIVEN. MC PRN; +IOHEXOL 350 MG/ML 100 ML VIAL. IV ONE
--- NOTE | 2018-08-14 16:08 | RAD ---
EXAM: CT chest with contrast - pulmonary embolus protocol CLINICAL HISTORY: CHF, shortness of air, elevated d-dimer. COMPARISON: None. TECHNIQUE: CT of the chest following the administration of intravenous contrast during the pulmonary arterial phase. Axial, coronal and sagittal reformatted images were generated including MIP images. ---PQRS compliance statement - One or more of the following individualized dose reduction techniques were utilized for this study: 1. Automated exposure control 2. Adjustment of the mA and/or kV according to patient size 3. Use of iterative reconstruction technique--- FINDINGS: CHEST: Diagnostic quality: Adequate. Pulmonary emboli: None seen Right heart strain: None Pulmonary arteries: Normal in caliber. Heart is mildly enlarged. Trace pericardial fluid likely physiologic. No mediastinal or hilar lymphadenopathy, although a few mildly prominent precarinal and right hilar lymph nodes are seen. No axillary lymphadenopathy. No pleural effusion or pneumothorax. Linear opacities in the lingula likely scarring/atelectasis. A 4 mm left lower lobe lung nodule (series 3 image 138) is seen. A 7 mm left lower lobe lung nodule (series 3 image 111) is seen. A 3 mm right upper lobe lung nodule (series 3 image 75) is seen. Several additional bilateral lung nodules are seen measuring up to 4-5 mm. Central airways are grossly patent. Visualized Upper abdomen: There is retrograde opacification of the hepatic veins possibly from exuberant contrast injection. Millimeters hypodense lesion in the left hepatic lobe is too small to characterize. Visualized upper abdomen is otherwise unremarkable. Bones: Evaluation of the osseous structures is limited given MIP reconstructions. Within these constraints osseous structures are grossly unremarkable. IMPRESSION: No evidence for acute pulmonary embolus. Bilateral lung nodules are seen measuring up to 7 mm. Per Fleischner Society guidelines for incidentally found multiple solid nodules measuring 6-8 mm, initial CT follow-up is recommended in 3-6 months. Additional follow-up can be considered in 18-24 month based on risk factors. Electronically signed by: Tobi Drummond MD (08/14/2018 4:05 PM) [id number]
== END | disposition home or self-care (01) ==
LOC: CT 15:11
PROVIDERS: ATTEND Family Medicine
DX: I11.0 Hypertensive heart disease with heart failure (principal); I50.33 Acute on chronic diastolic (congestive) heart failure; R91.8 Other nonspecific abnormal finding of lung field
CPT/HCPCS: 71275; Q9967

== ENCOUNTER → 2018-08-15 | Outpatient (CLI) | payer MEDICARE, OTHER ==
[2018-08-10 14:50] VITALS: BP 107/66
[~2018-08-15] MED LIST changes: -CONTRAST GIVEN. MC PRN; -IOHEXOL 350 MG/ML 100 ML VIAL. IV ONE; +REGADENOSON 0.4 MG/5 ML DISP.SYRIN. IV ONE
--- NOTE | 2018-08-15 11:11 | RAD ---
MR#: [id number] Date of Study: 08/15/2018 Ordering Physician: SRIRAM JORGENSEN, Referring Physician: ALICIA FULLER Tech: RT Randall MalikR) (N) APPROVED REPORT Test Type: Pharmacological Stress Nurse/Tech: Hannah Brush R.N. Test Indications: a fib, cardiomyopathy Cardiac History: Family history, High cholesterol, hypotension Medications: See Electronic Medical Record Medical History: See Electronic Medical Record Resting ECG: a fib with PVC's Resting Heart Rate: 118 bpm Resting Blood Pressure: 107/69mmHg Pretest Chest Pain: No chest pain Nurse/Tech Notes S1S2, lungs sound clear Consent: The procedure was explained to the patient in lay terms. Informed consent was witnessed. Dhiraj eout was entered into [employer]. History and Stress Test performed by David KulkarniN. Pharm. Details Pharmacologic stress testing was performed using 0.4mg per 5ml of regadenoson given intravenously ove r 7-10 seconds. Stress Symptoms Dyspnea, rapid a fib rate up to 182 POST EXERCISE Reason for Termination: Infusion complete Target HR: 129 Max HR: 182 bpm Max Blood Pressure: 114/63mmHg Chest Pain: No. Arrhythmia: Yes. cont. a fib with PVC's ST Change: No. INTERPRETATION Stress EKG Conclusion: No evidence of stress induced EKG changes. Imaging Protocol IMAGE PROTOCOL: Rest Tc-99m/stress Tc-99m 1 day Rest: Stress: Viability: Radiopharm.Tc99m JtblwdvocOm19q Sestamibi Dose10.4mCi 33mCi Duration 13min. 13min. Img Date 08/15/2018 08/15/2018 Inj-Img Gtwv98ioq. 60min. Rest Admin Site:IV - Right AntecubitalAdministrator:RT Helena (R)(N) Stress Admin Site: IV - Right AntecubitalAdministrator: CARYE Garduno STRESS DATA End Diast. Vol.120.0mlLVEDV index BSA54.0ml End Syst. Vol.45.0mlLVESV index BSA20.0ml Myocardial Ibpc093.0gEject. Bnykklbk40.0% Stress Scores Regional WT2.00Summed WT33.00 Regional WM0.00Summed WM5.00 The rest and stress images show normal perfusion, normal contraction and thickening. LV Perf. Quant 17 Seg. SSS3.00 17 Seg. SRS2.00 17 Seg. SDS1.00 Stress Defect Extent (% LAD)0.00Rest Defect Extent (% LAD)0.00Rev. Defect Extent (% LAD)0.00 Stress Defect Extent (% LCX) 17.50Rest Defect Extent (% LCX)1.30Rev. Defect Extent (% LCX)6.30 Stress Defect Extent (% RCA)0.00Rest Defect Extent (% RCA)0.00Rev. Defect Extent (% RCA)0.00 Stress Defect Extent (% PRAMOD)5.00Rest Defect Extent (% PRAMOD)0.20Rev. Defect Extent (% PRAMOD)2.80 Other Information Quality:Good Risk Assessment: Low Risk Conclusion 1. No evidence of EKG changes with stress testing. 2. Normal perfusion at stress/rest. 3. Low risk study. 4. EF > 60%. Signed by : Cruz Valero, Electronically Approved : 08/15/2018 11:10:33
== END | disposition home or self-care (01) ==
LOC: NM 07:49
PROVIDERS: ATTEND Internal Medicine Cardiovascular Disease
DX: I49.3 Ventricular premature depolarization (principal); I48.91 Unspecified atrial fibrillation; I42.9 Cardiomyopathy, unspecified; E78.00 Pure hypercholesterolemia, unspecified
CPT/HCPCS: 78452; 93017; A9500; J2785

== ENCOUNTER → 2018-09-30 | Day surgery (SDC) | payer MEDICARE, OTHER ==
[~2018-09-30] MED LIST changes: +IV RINGERS,LACTATED 1000ML 1,000 ML IV SCH; +LIDOCAINE 2% PF 5 ML VIAL. ONE; +PROPOFOL 20 ML IV ONE; -REGADENOSON 0.4 MG/5 ML DISP.SYRIN. IV ONE
--- NOTE | 2018-09-30 13:58 | EKG ---
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
[2018-09-30 14:27] LABS: HEMATOCRIT 42.5 % (39.0-53.0); RED BLOOD COUNT 4.52 x10^6/uL (4.30-5.70); WHITE BLOOD COUNT 7.7 x10^3/uL (4.0-11.0)
[2018-09-30 14:34] LABS: CALCIUM 8.8 mg/dL (8.5-10.1); CREATININE 1.1 mg/dL (0.7-1.3); GFR 66.6; POTASSIUM 4.3 mmol/L (3.5-5.1)
[2018-09-30 14:36] LABS: PROTHROMBIN TIME PATIENT 15.4 SEC (11.7-14.0)
[2018-09-30 14:53] LABS: DIG 0.5 ng/mL (0.9-2.0)
--- NOTE | 2018-09-30 15:44 | EKG ---
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
[2018-09-30 15:55] VITALS: BP 125/81
--- NOTE | 2018-09-30 16:52 | PDOC4 ---
PROCEDURE Procedure PROCEDURE Successful external cardioversion INDICATIONS Atrial fibrillation COMPLICATIONS None PROCEDURE DETAILS An informed consent was obtained from patient. After anesthesiology team administered intravenous propofol for deep sedation, patient was given 200 J of synchronized biphasic DC shock therapy with successful conversion of rhythm from atrial fibrillation to sinus rhythm. He was hemodynamically stable without any neurological deficits at the end of procedure. He tolerated the procedure well. There were no immediate complications. CONCLUSIONS Successful external cardioversion of atrial fibrillation to sinus rhythm. SRIRAM JORGENSEN MD Sep 30, 2018 16:52
== END ==
LOC: SURG 13:03
PROVIDERS: ATTEND Internal Medicine Cardiovascular Disease
DX: I48.91 Unspecified atrial fibrillation (principal)
CPT/HCPCS: 36415; 80048; 80162; 85027; 85610; 92960; 93005; J2001; J2704

== ENCOUNTER → 2019-01-16 | Outpatient (CLI) | payer MEDICARE, OTHER ==
[2018-11-08 08:36] VITALS: BP 97/68
[~2019-01-16] MED LIST changes: +AMIO200T4 PO; -IV RINGERS,LACTATED 1000ML 1,000 ML IV SCH; -LIDOCAINE 2% PF 5 ML VIAL. ONE; -PROPOFOL 20 ML IV ONE; +SIMV20TA18 PO; -SIMV20TA3 PO
--- NOTE | 2019-01-16 13:02 | KCIC ---
CT CHEST WO CONTRAST Indication: Lung nodule Technique: Noncontrast CT imaging was performed of the chest, multiplanar reconstruction images submitted. One or more of the following individualized dose reduction techniques were utilized for this examination: 1. Automated exposure control 2. Adjustment of the mA and/or kV according to patient size 3. Use of iterative reconstruction technique. Comparison: August 14, 2018 Findings: 6 mm left lower lobe pulmonary nodule image 42 series 2 is stable. 4mm left lower lobe nodule image 54 is stable. 2 mm left upper lobe subpleural nodule image 18 is stable. Small dense probably partially calcified 3 mm upper lobe nodule image 29 is stable. 2 mm right upper lobe nodule image 36 is stable. 2 to 3 mm right middle lobe nodule image 42 is stable. 4 mm nodule along the right major fissure image 37 is stable. No new pulmonary nodularity, infiltrate, pleural pericardial effusion is identified. There is some coronary calcification. Thoracic aortic caliber is within normal limits. No new significantly enlarged nodes are identified of the chest. 4 mm hypodense lesion left lobe of the liver is stable, too small to accurately characterize. IMPRESSION: 1. Small bilateral pulmonary nodules are stable, no new pulmonary nodularity. If there are increased risk factors for neoplasm, optional 12 month follow-up could be performed, otherwise no additional follow-up needed if low risk factors as per revised Fleishner guidelines. 2. There is some coronary calcification. Electronically signed by: Miguel Nunez MD (01/16/2019 12:59 PM) [facility]KCIC[facility]
== END | disposition home or self-care (01) ==
LOC: KCIC CT 08:12
PROVIDERS: ATTEND Internal Medicine Critical Care Medicine
DX: R91.8 Other nonspecific abnormal finding of lung field (principal); I25.10 Atherosclerotic heart disease of native coronary artery without angina pectoris; K76.89 Other specified diseases of liver; I11.0 Hypertensive heart disease with heart failure; I50.32 Chronic diastolic (congestive) heart failure; I48.91 Unspecified atrial fibrillation; Z95.0 Presence of cardiac pacemaker
CPT/HCPCS: 71250

== ENCOUNTER → 2019-08-11 | Outpatient (CLI) | payer MEDICARE, OTHER ==
[2018-11-08 08:36] VITALS: BP 97/68
[~2019-08-11] MED LIST changes: -DIGO125T PO; +DIGO125T3 PO; +TRAZ-123 PO; -TRAZ-86 PO
--- NOTE | 2019-08-11 12:04 | CARD ---
MR#: [id number] Date of Study: 08/11/2019 Ordering Physician: SRIRAM MENDOZA, Referring Physician: SRIRAM MENDOZA, Tech: APPROVED REPORT PROCEDURE: Successful implantation of Medtronic Reveal Linq loop recorder INDICATIONS: Sick sinus syndrome PROCEDURE DETAILS: An informed consent was obtained from patient. Patient was brought to the procedure suite and her le ft chest and shoulder were prepped and draped in the usual fashion. 20 mL of 2% lidocaine was infilt rated into the skin and subcutaneous tissues for local anesthesia. An incision was made in the left fourth intercostal space 1 inch from midsternal line and using the introducer and deployed provided w ith the kit, a Medtronic Reveal Linq loop recorder with serial number [id number] was placed in the s ubcutaneous tissue. The incision was closed using Steri-Strips. Hemostasis was secured. Patient to lerated the procedure well. There were no immediate complications. At the end of procedure, the dev ice showed sensing amplitude of 0.24 mV. CONCLUSION: Successful implantation of Medtronic Reveal Linq loop recorder to rule out sick sinus syndrome. Signed by : Sriram Mendoza, Electronically Approved : 08/11/2019 12:04:34
== END ==
LOC: LINQ 10:58
PROVIDERS: ATTEND Internal Medicine Cardiovascular Disease
DX: I49.5 Sick sinus syndrome (principal); R55 Syncope and collapse; I48.91 Unspecified atrial fibrillation; I50.32 Chronic diastolic (congestive) heart failure
CPT/HCPCS: 33285; C1764

== ENCOUNTER → 2020-01-15 | Outpatient (CLI) | payer MEDICARE, OTHER ==
[2018-11-08 08:36] VITALS: BP 97/68
[~2020-01-15] MED LIST changes: -AMIO200T4 PO; +AMIO200T6 PO; -ASPI-612 PO; +ASPI-886 PO
--- NOTE | 2020-01-15 14:56 | KCIC ---
Examination: CT chest without contrast HISTORY: History of lung nodule follow-up, smoking COMPARISON: 01/16/2019 TECHNIQUE: Axial CT images of the chest without contrast. Coronal and sagittal reformats performed Exposure: One or more of the following individualized dose reduction techniques were utilized for this examination: 1. Automated exposure control 2. Adjustment of the mA and/or kV according to patient size 3. Use of iterative reconstruction technique FINDINGS: The central airways are patent. No radiologically significant mediastinal lymphadenopathy. Coronary artery calcifications. 3 mm nodule right upper lobe of the lung. Minimal atelectasis left lingula. There is a 5 mm nodule in the left lower lobe lung similar to prior exam. No evidence of pleural effusion or pneumothorax. Small cystic hypodensity identified in left lobe of the liver measuring 6 mm. The spleen, adrenals grossly appears unremarkable. Mild degenerative changes thoracic spine. IMPRESSION: 1. Unchanged small bilateral lung nodules with the largest measuring 5 mm in the left lower lobe of the lung. Electronically signed by: Zak Goldberg MD (01/15/2020 2:53 PM) [id number]
== END ==
LOC: KCIC CT 09:12
PROVIDERS: ATTEND Internal Medicine Critical Care Medicine
DX: R91.8 Other nonspecific abnormal finding of lung field (principal)
CPT/HCPCS: 71250

== ENCOUNTER → 2020-05-05 | Outpatient (CLI) | payer MEDICARE, OTHER ==
[2018-11-08 08:36] VITALS: BP 97/68
--- NOTE | 2020-05-06 08:37 | CARD ---
MR#: [id number] Date of Study: 05/05/2020 Ordering Physician: SRIRAM JORGENSEN, Referring Physician: SRIRAM JORGENSEN, Tech: Elaina Ortiz SHAYLEE APPROVED REPORT EXAM: Two-dimensional and M-mode echocardiogram with Doppler and color Doppler. Other Information Quality : Fair INDICATION Atrial Fibrillation 2D DIMENSIONS RVDd2.8 (2.9-3.5cm)Left Atrium(2D)4.2 (1.6-4.0cm) IVSd1.1 (0.7-1.1cm)Aortic Root(2D)3.3 (2.0-3.7cm) LVDd5.4 (3.9-5.9cm)LVOT Diameter2.1 (1.8-2.4cm) PWd0.9 (0.7-1.1cm)LVDs3.3 (2.5-4.0cm) FS (%) 30.0 %SV93.3 ml LVEF(%)60.0 (>50%) Aortic Valve AoV Peak Maurice.136.9cm/sAoV VTI27.8cm AO Peak GR.7.5mmHgLVOT Peak Maurice.125.6cm/s LVOT VTI 23.70cmAO Mean GR.4mmHg MANJULA (VMAX)3.59mj3RNI (VTI)3.04cm2 Mitral Valve MV E Xtwculry04.6cm/sMV DECEL HEIO190au MV A Fxfeuvro16.6cm/sMV QVA70gw E/A Ratio1.5MVA (PHT)3.87cm2 TDI E/Medial E'9.5 Tricuspid Valve TR P. Vgfrdstk084zp/sRAP YPQSLAJO4udEl TR Peak Gr.68lpZtTFGP61bjIa Pulmonary Vein S1 Dcprmeyu18.0cm/sD2 Ezgxzljd79.9cm/s LEFT VENTRICLE The left ventricle is normal size. There is normal left ventricular wall thickness. The left ventricu lar systolic function is normal. The Ejection Fraction is 55-60%. There is normal LV segmental wall m otion. RIGHT VENTRICLE The right ventricle is normal size. The right ventricular systolic function is normal. ATRIA The left atrium is mildly dilated. The right atrium size is normal. The interatrial septum is intact with no evidence for an atrial septal defect or patent foramen ovale as noted on 2-D or Doppler imagi ng. AORTIC VALVE The aortic valve is mildly thickened but opens well. Doppler and Color Flow revealed no significant a ortic regurgitation. There is no significant aortic valvular stenosis. MITRAL VALVE The mitral valve is calcified but opens well. There is no evidence of mitral valve prolapse. There is no mitral valve stenosis. Doppler and Color-flow revealed mild mitral regurgitation. TRICUSPID VALVE The tricuspid valve is normal in structure and function. Doppler and Color Flow revealed trace tricus pid regurgitation. The PA pressure was estimated at 21 mmHg. There is no tricuspid valve stenosis. PULMONIC VALVE The pulmonic valve is not well visualized. Doppler and Color Flow revealed mild pulmonic valvular reg urgitation. There is no pulmonic valvular stenosis. GREAT VESSELS The aortic root is normal in size. The ascending aorta is mildly dilated 3.6 cm. The IVC is normal in size and collapses >50% with inspiration. PERICARDIAL EFFUSION There is no evidence of significant pericardial effusion. Critical Notification Critical Value: No <Conclusion> The left ventricular systolic function is normal. The Ejection Fraction is 55-60%. There is normal LV segmental wall motion. Mild mitral regurgitation. Trace tricuspid regurgitation. The PA pressure was estimated at 21 mmHg. There is no evidence of significant pericardial effusion. Signed by : Sriram Jorgensen, Electronically Approved : 05/06/2020 08:36:29
== END ==
LOC: ECHO 14:46
PROVIDERS: ATTEND Internal Medicine Cardiovascular Disease
DX: I08.8 Other rheumatic multiple valve diseases (principal); I48.91 Unspecified atrial fibrillation
CPT/HCPCS: 93306

== ENCOUNTER → 2020-11-10 | Outpatient (CLI) | payer MEDICARE, OTHER ==
[2018-11-08 08:36] VITALS: BP 97/68
[~2020-11-10] MED LIST changes: -DOXY100C2 PO; +DOXY100C3 PO; +REGADENOSON 0.4 MG/5 ML DISP.SYRIN. IV ONE
--- NOTE | 2020-11-10 13:10 | RAD ---
MR#: [id number] Date of Study: 11/10/2020 Ordering Physician: SRIRAM JORGENSEN, Referring Physician: ALICIA FULLER Tech: MARISELA Raymundo, ARRT (R) (N) APPROVED REPORT Test Type: Pharmacological Stress Nurse/Tech: Alva Mondragon RN Test Indications: atrial fibrillation Cardiac History: Family history Medications: See Electronic Medical Record Medical History: See Electronic Medical Record Resting ECG: SB Resting Heart Rate: 54 bpm Resting Blood Pressure: 111/54mmHg Pretest Chest Pain: No chest pain Nurse/Tech Notes S1,S2 and lungs clear to auscultation. Consent: The procedure was explained to the patient in lay terms. Informed consent was witnessed. Dhiraj eout was entered into [employer]. History and Stress Test performed by RT Helena (R) (N) Pharm. Details Pharmacologic stress testing was performed using 0.4mg per 5ml of regadenoson given intravenously ove r 7-10 seconds. Stress Symptoms Nausea POST EXERCISE Reason for Termination: Infusion complete Target HR: No Max HR: 95 bpm 74% of Maximum Predicted HR: 127 bpm Max Blood Pressure: 109/56mmHg Blood Pressure response to exercise: Normal blood pressure response during stress. Heart Rate response to exercise: WNL Chest Pain: No. Arrhythmia: Yes. PVC ST Change: No. INTERPRETATION Stress EKG Conclusion: The resting EKG shows a sinus rhythm with minimal nonspecific ST segment gunn es. The stress EKG shows no significant changes from baseline. No EKG evidence of stress-induced ischemia. Imaging Protocol IMAGE PROTOCOL: Rest Tc-99m/stress Tc-99m 1 day Rest: Stress: Viability: Radiopharm.Tc99m KfftodcxaGw20g Sestamibi Swny11hOj 30.5mCi Img Date 11/10/2020 11/10/2020 Inj-Img Tsbz90fwc. 75min. Rest Admin Site:IV - Right HandAdministrator:RT Rosaura (Elsie)(N) Stress Admin Site: IV - Right HandAdministrator: RT Helena (Elsie)(N) STRESS DATA End Diast. Vol.150.0mlAv. Heart Rate65.0bpm End Syst. Vol.48.0mlCO Index BSA0.0L/min Myocardial Imcd743.0gEject. Cucdrelu22.0% Stress Rates Pk. Fill Rate3.16EDV/secLVtime Pk. Fill 133.18msec Pk. Empty Rate3.07ESV/secLVtime Pk. Itdmz419.46msec /3 Pk. Fill1.92EDV/sec Stress Scores Regional WT0.00Summed WT3.00 Regional WM0.00Summed WM0.00 LV Perfusion The stress scans show no significant defects. The rest scans showed no significant defects. Nuclear imaging shows no reversible ischemia or infarct. Wall Motion Left ventricular systolic function appears normal with no regional wall motion abnormalities and an e jection fraction of 68%. LV Perf. Quant 17 Seg. SSS4.00 17 Seg. SRS13.00 17 Seg. SDS0.00 Stress Defect Extent (% LAD)1.30Rest Defect Extent (% LAD)25.60Rev. Defect Extent (% LAD)0.00 Stress Defect Extent (% LCX) 18.80Rest Defect Extent (% LCX)30.00Rev. Defect Extent (% LCX)0.00 Stress Defect Extent (% RCA)0.00Rest Defect Extent (% RCA)11.10Rev. Defect Extent (% RCA)0.00 Stress Defect Extent (% PRAMOD)6.30Rest Defect Extent (% PRAMOD)24.10Rev. Defect Extent (% PRAMOD)0.00 Conclusion 1. No EKG evidence of stress-induced ischemia. 2. Nuclear imaging shows no reversible ischemia or infarct. 3. Normal left ventricular systolic function with ejection fraction of 68%. 4. Low risk Lexiscan nuclear stress test. Signed by : Brigido Norris MD Electronically Approved : 11/10/2020 13:09:30
== END ==
LOC: NM 09:53
PROVIDERS: ATTEND Internal Medicine Cardiovascular Disease
DX: I48.91 Unspecified atrial fibrillation (principal); R11.0 Nausea
CPT/HCPCS: 78452; 93017; A9500; J2785

== ENCOUNTER 2021-01-04 15:27 | Inpatient (IN) | payer MEDICARE, OTHER ==
[2021-01-04] VITALS (10 sets, daily range): BP systolic 106–132; BP diastolic 64–76
[~2021-01-04] VITALS: Ht 177.8 cm; Wt 102.1 kg
[~2021-01-04 15:27] MED LIST changes: +AMIO200T53 PO; -AMIO200T6 PO; -REGADENOSON 0.4 MG/5 ML DISP.SYRIN. IV ONE
[2021-01-04] MEDS ORDERED: IV NORMAL SALINE 1000ML BAG 1,000 ML IV SCH (15:45)
[2021-01-04] MEDS ORDERED: ONDANSETRON PF 4 MG/2 ML VIAL. IVP ONE (15:45)
--- NOTE | 2021-01-04 15:52 | ED.ADGEN ---
Past Medical History Past Medical History: High Cholesterol, Hypertension, Other Additional Past Medical Histor: SVT, seasonal allergies Past Surgical History: Tonsillectomy, Other Additional Past Surgical Histo: knee surgery, tendon/ligament surgeries Smoking Status: Former Smoker Alcohol Use: Occasionally Drug Use: None General Adult EDM: Chief Complaint: ABDOMINAL PAIN HPI: HPI: Patient is a 70-year-old male who arrives ambulatory to the emergency department complaining of diffuse abdominal pain as well as nausea and vomiting. Patient reportedly had a colonoscopy on Saturday this week and have been recovering well without any complications. Patient reports today around noon he began experiencing a dull pain which is progressed since that time. The patient reports at that time he had ongoing nausea as well as multiple episodes of vomiting. Patient describes pain is being in the epigastric region, mid abdomen and migrating inferiorly. Patient states he has had colonoscopies previous to this which have been uneventful. Despite patient symptoms he states he has not had any fevers. He further denies any shortness of air or chest pain. He also denies any genitourinary symptoms. Additionally he denies any sick exposures. He is awake, alert and uncomfortable appearing. Review of Systems: Review of Systems: Constitutional: Denies fever or chills. [] Eyes: Denies change in visual acuity. [] HENT: Denies nasal congestion or sore throat. [] Respiratory: Denies cough or shortness of breath. [] Cardiovascular: Denies chest pain or edema. [] GI: Reports nausea with vomiting. Additionally he reports abdominal pain and abdominal distention. Denies bloody stools or diarrhea. [] : Denies dysuria. [] Musculoskeletal: Denies back pain or joint pain. [] Integument: Denies rash. [] Neurologic: Denies headache, focal weakness or sensory changes. [] Endocrine: Denies polyuria or polydipsia. [] Lymphatic: Denies swollen glands. [] Psychiatric: Denies depression or anxiety. [] Current Medications: Current Medications Medications (Trade) Dose Ordered Sig/Kerry Start Time Stop Time Status Last Admin Dose Admin Acetaminophen (Tylenol) 650 mg PRN Q4HRS PRN 01/04/21 17:30 Apixaban (Eliquis) 5 mg BID 01/04/21 21:00 Aspirin (Ecotrin) 81 mg DAILYWBKFT 01/05/21 08:00 Dextrose (Dextrose 50%-Water Syringe) 12.5 gm PRN Q15MIN PRN 01/04/21 17:30 Docusate Sodium (Colace) 100 mg PRN DAILY PRN 01/04/21 17:30 Fluticasone Propionate (Flonase) 2 spray DAILY 01/05/21 09:00 Info (CONTRAST GIVEN -- Rx MONITORING) 1 each PRN DAILY PRN 01/04/21 17:00 01/06/21 16:59 Iohexol (Omnipaque 300 Mg/ml) 75 ml 1X ONCE 01/04/21 17:00 01/04/21 17:01 DC 01/04/21 16:57 75 ML Levofloxacin/ Dextrose 150 ml @ 100 mls/hr 1X ONCE 01/04/21 17:15 01/04/21 18:44 Lorazepam (Ativan Inj) 0.25 mg PRN Q4HRS PRN 01/04/21 17:30 Lorazepam (Ativan) 0.5 mg PRN Q6HRS PRN 01/04/21 17:30 Metoprolol Tartrate (Lopressor) 50 mg BID 01/04/21 21:00 Morphine Sulfate (Morphine Sulfate) 4 mg PRN Q2HR PRN 01/04/21 17:30 01/05/21 17:29 Ondansetron HCl (Zofran) 4 mg PRN Q8HRS PRN 01/04/21 17:30 01/05/21 17:29 Potassium Chloride 40 meq/ Sodium Chloride 1,020 ml @ 125 mls/hr Q8H10M 01/04/21 17:30 01/05/21 17:29 Cancel Potassium Chloride/Water 100 ml @ 50 mls/hr Q2H 01/04/21 17:30 01/05/21 03:29 Prochlorperazine Edisylate (Compazine) 10 mg PRN Q6HRS PRN 01/04/21 17:30 Sennosides (Senna) 17.2 mg PRN BID PRN 01/04/21 17:30 Simvastatin (Zocor) 20 mg QHS 01/04/21 21:00 Sodium Chloride 1,000 ml @ 75 mls/hr [id number] 01/04/21 17:30 Trazodone HCl (Desyrel) 100 mg QHS 01/04/21 21:00 Zolpidem Tartrate (Ambien) 2.5 mg PRN QHS PRN 01/04/21 17:30 Allergies: Allergies: Allergies Coded Allergies Type Severity Reaction Last Updated Verified No Known Drug Allergies 09/30/18 No Physical Exam: PE: Constitutional: In obvious discomfort/pain. Well developed, well nourished, non -toxic appearance. [] HENT: Normocephalic, atraumatic, bilateral external ears normal, oropharynx moist, no oral exudates, nose normal. [] Eyes: PERRLA, EOMI, conjunctiva normal, no discharge. [] Neck: Normal range of motion, no tenderness, supple, no stridor. [] Cardiovascular:Heart rate regular rhythm, no murmur [] Lungs & Thorax: Bilateral breath sounds clear to auscultation [] Abdomen: Patient has tenderness to palpation which is diffuse in nature. Additionally the patient has mild distention present as well. Bowel sounds are hypoactive. There are no masses. Furthermore there is no rebound or guarding present. [] Skin: Warm, dry, no erythema, no rash. [] Back: No tenderness, no CVA tenderness. [] Extremities: No tenderness, no cyanosis, no clubbing, ROM intact, no edema. [] Neurologic: Alert and oriented X 3, normal motor function, normal sensory function, no focal deficits noted. [] Psychologic: Affect normal, judgement normal, mood normal. [] Current Patient Data: Labs: Laboratory Tests Test 01/04/21 15:56 01/04/21 16:32 White Blood Count 10.1 x10^3/uL (4.0-11.0) Red Blood Count 2.92 x10^6/uL (4.30-5.70) L Hemoglobin 9.9 g/dL (13.0-17.5) L Hematocrit 28.4 % (39.0-53.0) L Mean Corpuscular Volume 97 fL (79-100) Mean Corpuscular Hemoglobin 34 pg (25-35) Mean Corpuscular Hemoglobin Concent 35 g/dL (31-37) Red Cell Distribution Width 12.7 % (11.5-14.5) Platelet Count 170 x10^3/uL (140-400) Neutrophils (%) (Auto) 83 % (31-73) H Lymphocytes (%) (Auto) 9 % (24-48) L Monocytes (%) (Auto) 8 % (0-9) Eosinophils (%) (Auto) 0 % (0-3) Basophils (%) (Auto) 0 % (0-3) Neutrophils # (Auto) 8.4 x10^3/uL (1.8-7.7) H Lymphocytes # (Auto) 1.0 x10^3/uL (1.0-4.8) Monocytes # (Auto) 0.8 x10^3/uL (0.0-1.1) Eosinophils # (Auto) 0.0 x10^3/uL (0.0-0.7) Basophils # (Auto) 0.0 x10^3/uL (0.0-0.2) Sodium Level 149 mmol/L (136-145) H Potassium Level 1.9 mmol/L (3.5-5.1) *L Chloride Level 116 mmol/L (98-107) H Carbon Dioxide Level 22 mmol/L (21-32) Anion Gap 11 (6-14) Blood Urea Nitrogen 14 mg/dL (8-26) Creatinine 0.6 mg/dL (0.7-1.3) L Estimated GFR (Cockcroft-Gault) 133.2 BUN/Creatinine Ratio 23 (6-20) H Glucose Level 100 mg/dL (70-99) H Lactic Acid Level 1.5 mmol/L (0.4-2.0) Calcium Level < 5.0 mg/dL (8.5-10.1) *L Magnesium Level 0.9 mg/dL (1.8-2.4) L Total Bilirubin 0.3 mg/dL (0.2-1.0) Aspartate Amino Transferase (AST) 25 U/L (15-37) Alanine Aminotransferase (ALT) 32 U/L (16-63) Alkaline Phosphatase 48 U/L (46-116) Troponin I High Sensitivity 6 ng/L (4-75) Total Protein 3.9 g/dL (6.4-8.2) L Albumin 1.8 g/dL (3.4-5.0) L Albumin/Globulin Ratio 0.9 (1.0-1.7) L Lipase 05622 U/L (73-393) H SARS-CoV-2 Antigen (Rapid) Negative (NEGATIVE) Laboratory Tests 01/04/21 15:56 Laboratory Tests 01/04/21 15:56 Vital Signs: Vital Signs Date Time Temp Pulse Resp B/P (MAP) Pulse Ox O2 Delivery O2 Flow Rate FiO2 01/04/21 16:55 16 97 01/04/21 15:54 Room Air 01/04/21 15:45 97.9 61 142/77 (98) 97.9 EKG: EKG: EKG was obtained at 1608 hrs. reveals a sinus bradycardia with a ventricular rate of 53 bpm. There are premature atrial complexes present without otherwise ischemic changes. [] Heart Score: C/O Chest Pain: No HEART Score for Chest Pain: HEART Score for Chest Pain Response (Comments) Value History Slighlty/Non-Suspicious 0 ECG Normal 0 Age > 65 2 Risk Factors 1 or 2 Risk Factors 1 Troponin < Normal Limit 0 Total 3 Risk Factors: Risk Factors: DM, Current or recent (<one month) smoker, HTN, HLP, family history of CAD, obesity. Risk Scores: Score 0 - 3: 2.5% MACE over next 6 weeks - Discharge Home Score 4 - 6: 20.3% MACE over next 6 weeks - Admit for Clinical Observation Score 7 - 10: 72.7% MACE over next 6 weeks - Early Invasive Strategies Radiology/Procedures: Radiology/Procedures: [][facility] [address] [place] [address] IMAGING REPORT Signed PATIENT: MATEO JUAREZ RACCOUNT: [id number] : 1950 LOCATION: ER AGE: 70 SEX: M EXAM STATUS: REG ER ORD. PHYSICIAN: INDRA PANIAGUA DO REASON: Abdominal pain, vomiting PROCEDURE: ACUTE ABDOMEN SERIES XR ABDOMEN COMP ACUTE History: Abdominal pain, vomiting Comparison: None. Technique: Frontal chest with upright and supine radiographs of the abdomen and pelvis. Findings: Chest: Hazy bilateral lower lobe airspace opacities. Left chest subcutaneous cardiac device. Bowel gas pattern: Nonspecific nonobstructive bowel gas pattern with a few gas- filled nondilated small bowel loops throughout the abdomen. Free air: None. Abnormal calcifications: A few left pelvic phleboliths. Bones: Mild degenerative changes of the spine. Other: None. Impression: 1. Nonspecific, nonobstructive bowel gas pattern. No free air. 2. Bilateral hazy lower lobe airspace opacities may represent pulmonary edema or multifocal infection. Electronically signed by: Riccardo Villa MD (01/04/2021 5:01 PM) [id number] DICTATED and SIGNED BY: RICCARDO VILLA MD DATE: 01/04/21 [id number] [facility] [address] [place] [address] IMAGING REPORT Signed PATIENT: MATEO JUAREZ RACCOUNT: [id number] : 1950 LOCATION: ER AGE: 70 SEX: M EXAM STATUS: REG ER ORD. PHYSICIAN: INDRA PANIAGUA DO REASON: Generalized pain, vomiting PROCEDURE: CT ABD PELV W/ IV CONTRST ONLY EXAM: CT Abdomen and Pelvis with IV contrast CLINICAL HISTORY: Generalized pain, vomiting COMPARISON: none TECHNIQUE: Helical CT of the abdomen and pelvis was performed following the administration of intravenous contrast. Axial, coronal and sagittal reformatted images were generated. PQRS compliance statement - One or more of the following individualized dose reduction techniques were utilized for this study: 1. Automated exposure control 2. Adjustment of the mA and/or kV according to patient size 3. Use of iterative reconstruction technique FINDINGS: Lower Chest: Dependent airspace opacities lower lobes likely atelectasis or developing consolidation. Abdomen and Pelvis: Spleen is unremarkable. Subcentimeter hypodense hepatic lesions too small to accurately characterize. Gallbladder is normal. No biliary ductal dilatation. Infiltration about the pancreas consistent with acute pancreatitis. No loculated fluid collection. Homogenous enhancement of the pancreas. Symmetric nephrograms. Subcentimeter hypodense renal lesions are too small to accurately characterize. Additional hypodense renal lesions bilaterally measure fluid density, likely cystic. Appendix is normal. Moderate colonic stool content is seen. No bowel obstruction. Fat-containing inguinal hernias. Is normal in caliber. No abdominal or pelvic lymphadenopathy. No abdominal or pelvic ascites. Bones: No aggressive osseous lesion is seen. Degenerative changes of the spine are seen. IMPRESSION: 1. Changes of acute pancreatitis without loculated fluid collection 2. No pleural effusions are seen. 3. Airspace opacities lower lobes likely consolidative process such as pneumonia. Electronically signed by: Tobi Jones MD (01/04/2021 5:30 PM) [facility] DICTATED and SIGNED BY: TOBI JONES MD DATE: 01/04/21 [id number] Course & Med Decision Making: Course & Med Decision Making Pertinent Labs and Imaging studies reviewed. (See chart for details) [] Dragon Disclaimer: Dragon Disclaimer: This electronic medical record was generated, in whole or in part, using a voice recognition dictation system. Departure Departure Impression: Primary Impression: Pancreatitis, acute Additional Impressions: Hypocalcemia Hypokalemia Person under investigation for COVID-19 Pneumonia Disposition: ADMITTED INPATIENT Admitting Physician: GOGO Condition: STABLE Referrals: RLOF JIMENEZ MD (PCP) Problem Qualifiers INDRA PANIAGUA DO Jan 04, 2021 15:52
[2021-01-04] MEDS: MORPHINE SULFATE 4 MG/ML INJ. IV/SQ PRN ×2 (15:54→16:55)
[2021-01-04 16:09] LABS: BASO % 0 % (0-3); EOS % 0 % (0-3); HEMATOCRIT 28.4 % (39.0-53.0); HEMOGLOBIN 9.9 g/dL (13.0-17.5); LYMPH % 9 % (24-48); MEAN CORPUSCULAR HEMOGLOBIN 34 pg (25-35); MEAN CORPUSCULAR HGB CONC 35 g/dL (31-37); MEAN CORPUSCULAR VOLUME 97 fL (79-100); MONO # 0.8 x10^3/uL (0.0-1.1); MONO % 8 % (0-9); NEUT # 8.4 x10^3/uL (1.8-7.7); NEUT % 83 % (31-73); PLATELET COUNT 170 x10^3/uL (140-400); RED BLOOD COUNT 2.92 x10^6/uL (4.30-5.70); RED CELL DISTRIBUTION WIDTH 12.7 % (11.5-14.5); WHITE BLOOD COUNT 10.1 x10^3/uL (4.0-11.0)
[2021-01-04 16:26] LABS: ALBUMIN 1.8 g/dL (3.4-5.0); ALBUMIN/GLOBULIN RATIO 0.9 (1.0-1.7); ALK PHOS 48 U/L (46-116); ALT (SGPT) 32 U/L (16-63); ANION GAP 11 (6-14); AST (SGOT) 25 U/L (15-37); BLOOD UREA NITROGEN 14 mg/dL (8-26); BUN/CREATININE RATIO 23 (6-20); CARBON DIOXIDE 22 mmol/L (21-32); CHLORIDE 116 mmol/L (98-107); CREATININE 0.6 mg/dL (0.7-1.3); GFR 133.2; GLUCOSE 100 mg/dL (70-99); SODIUM 149 mmol/L (136-145); TOTAL BILIRUBIN 0.3 mg/dL (0.2-1.0); TOTAL PROTEIN 3.9 g/dL (6.4-8.2)
--- NOTE | 2021-01-04 16:26 | EKG ---
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
[2021-01-04 16:34] LABS: CALCIUM < 5.0 mg/dL (8.5-10.1); POTASSIUM 1.9 mmol/L (3.5-5.1)
[2021-01-04] MEDS ORDERED: CONTRAST GIVEN. MC PRN (17:00)
[2021-01-04] MEDS ORDERED: IOHEXOL 300 MG/ML 100ML VIAL. IV ONE (17:00)
--- NOTE | 2021-01-04 17:03 | RAD ---
XR ABDOMEN COMP ACUTE History: Abdominal pain, vomiting Comparison: None. Technique: Frontal chest with upright and supine radiographs of the abdomen and pelvis. Findings: Chest: Hazy bilateral lower lobe airspace opacities. Left chest subcutaneous cardiac device. Bowel gas pattern: Nonspecific nonobstructive bowel gas pattern with a few gas-filled nondilated smal l bowel loops throughout the abdomen. Free air: None. Abnormal calcifications: A few left pelvic phleboliths. Bones: Mild degenerative changes of the spine. Other: None. Impression: 1. Nonspecific, nonobstructive bowel gas pattern. No free air. 2. Bilateral hazy lower lobe airspace opacities may represent pulmonary edema or multifocal infectio n. Electronically signed by: Riccardo Zhang MD (01/04/2021 5:01 PM) [id number]
[2021-01-04 17:08] LABS: LIPASE 13207 U/L (73-393)
--- NOTE | 2021-01-04 17:20 | PDOC1 ---
History and Physical Date of Service: DOS: DATE: 01/04/21 TIME: 17:08 Chief Complaint: Chief Complain: ABD pain History of Present Illness: HPI: Hx obtained from discussion with the ED physician and chart review: 70-year-old male with past medical history of hypertension, dyslipidemia who comes in with diffuse abdominal pain associated with nausea vomiting. Patient had a colonoscopy on Saturday this week and since that time he has had abdominal pain that is progressively gotten worse. Pain is 7 out of 10 and mainly in his mid abdomen and radiates downwards. Colonoscopy in the past has been uneventful. Unsure of his had any biopsy done. Denies fevers, chest pain, diarrhea, shortness of breath or dysuria. Past Medical/Surgical History: PMH/PSH: Past Medical History: High Cholesterol, Hypertension, SVT, seasonal allergies Past Surgical History: Tonsillectomy, knee surgery, tendon/ligament surgeries Allergies: Allergies: Coded Allergies: No Known Drug Allergies (Unverified , 09/30/18) Family History: Family History: Reviewed with no relevant findings Social History: Social History: Smoking Status: Former Smoker Alcohol Use: Occasionally Drug Use: None Current Medications: Current Medications Current Medications Morphine Sulfate (Morphine Sulfate) 4 mg PRN Q15MIN PRN IV/SQ PAIN GREATER THAN 3/10 Last administered on 01/04/21at 16:55; Start 01/04/21 at 15:45; Stop 01/05/21 at 15:44 Sodium Chloride 1,000 ml @ 1,000 mls/hr Q1H IV Last administered on 01/04/21at 15:53; Start 01/04/21 at 15:45; Stop 01/04/21 at 16:44; Status DC Ondansetron HCl (Zofran) 4 mg 1X ONCE IVP Last administered on 01/04/21at 15:53 ; Start 01/04/21 at 15:45; Stop 01/04/21 at 15:51; Status DC Iohexol (Omnipaque 300 Mg/ml) 75 ml 1X ONCE IV Last administered on 01/04/21at 16:57; Start 01/04/21 at 17:00; Stop 01/04/21 at 17:01; Status DC Info (CONTRAST GIVEN -- Rx MONITORING) 1 each PRN DAILY PRN MC SEE COMMENTS; Start 01/04/21 at 17:00; Stop 01/06/21 at 16:59 Active Scripts Active Amiodarone Hcl 200 Mg Tablet 200 Mg PO DAILY 30 Days Metoprolol Tartrate 50 Mg Tablet 1 Tab PO BID Eliquis (Apixaban) 5 Mg Tablet 5 Mg PO BID Aspirin Ec (Aspirin) 81 Mg Tablet.dr 81 Mg PO DAILYWBKFT Lasix (Furosemide) 40 Mg Tablet 1 Tab PO DAILY Reported Flonase Allergy Relief (Fluticasone Propionate) 9.9 Ml [place].susp 2 Sprays NS DAILY Loratadine 10 Mg Tablet 2 Tab PO QHS Simvastatin 20 Mg Tablet 20 Mg PO QHS Trazodone Hcl 100 Mg Tablet 1 Tab PO QHS ROS: Review of Systems Review of System REVIEW OF SYSTEMS: GENERAL: Denies weakness SKIN: No bruising, hair changes or rashes. EYES: No blurred, double or loss of vision. NOSE AND THROAT: No history of nosebleeds, hoarseness or sore throat. HEART: No history of palpitations, chest pain or shortness of breath on exertion. LUNGS: Denies cough, hemoptysis, wheezing or shortness of breath. GASTROINTESTINAL: Denies changes in appetite, nausea, vomiting, diarrhea or constipation. GENITOURINARY: No history of frequency, urgency, hesitancy or nocturia. NEUROLOGIC: Denies history of numbness, tingling, or tremor. PSYCHIATRIC: No history of panic, anxiety or depression. ENDOCRINE: No history of heat or cold intolerance, polyuria or polydipsia. EXTREMITIES: Denies joint pain, pain on walking or stiffness. Physical Exam: Vital Signs: Vital Signs Date Time Temp Pulse Resp B/P (MAP) Pulse Ox O2 Delivery O2 Flow Rate FiO2 01/04/21 16:55 16 97 01/04/21 15:54 Room Air 01/04/21 15:45 97.9 61 142/77 (98) 97.9 Physcial Exam: GENERAL: The patient is alert and oriented, in no acute distress. HEENT: PERRLA. Extraocular movements are intact. Sclerae are anicteric. Conjunctivae are clear. ENT: Ears, nose, and throat are clear. NECK: Supple without adenopathy. Thyroid is normal. Carotids free of bruit. LUNGS: Clear to auscultation bilaterally. symmetrical chest rise. HEART: Regular rate and rhythm without murmur, rub or gallop. ABDOMEN: Soft and nontender. Active bowel sounds. No organomegaly. tenderness to palpation which is diffuse SKIN: Clear, free of rash. NEUROLOGIC: Cranial nerves II through XII intact. Distal, motor, and sensory exam is grossly intact. MUSCULOSKELETAL: Full range of motion of all 4 extremities without pain. Calves are nontender. Labs: Labs: Laboratory Tests Test 01/04/21 15:56 White Blood Count 10.1 x10^3/uL (4.0-11.0) Red Blood Count 2.92 x10^6/uL (4.30-5.70) Hemoglobin 9.9 g/dL (13.0-17.5) Hematocrit 28.4 % (39.0-53.0) Mean Corpuscular Volume 97 fL (79-100) Mean Corpuscular Hemoglobin 34 pg (25-35) Mean Corpuscular Hemoglobin Concent 35 g/dL (31-37) Red Cell Distribution Width 12.7 % (11.5-14.5) Platelet Count 170 x10^3/uL (140-400) Neutrophils (%) (Auto) 83 % (31-73) Lymphocytes (%) (Auto) 9 % (24-48) Monocytes (%) (Auto) 8 % (0-9) Eosinophils (%) (Auto) 0 % (0-3) Basophils (%) (Auto) 0 % (0-3) Neutrophils # (Auto) 8.4 x10^3/uL (1.8-7.7) Lymphocytes # (Auto) 1.0 x10^3/uL (1.0-4.8) Monocytes # (Auto) 0.8 x10^3/uL (0.0-1.1) Eosinophils # (Auto) 0.0 x10^3/uL (0.0-0.7) Basophils # (Auto) 0.0 x10^3/uL (0.0-0.2) Sodium Level 149 mmol/L (136-145) Potassium Level 1.9 mmol/L (3.5-5.1) Chloride Level 116 mmol/L (98-107) Carbon Dioxide Level 22 mmol/L (21-32) Anion Gap 11 (6-14) Blood Urea Nitrogen 14 mg/dL (8-26) Creatinine 0.6 mg/dL (0.7-1.3) Estimated GFR (Cockcroft-Gault) 133.2 BUN/Creatinine Ratio 23 (6-20) Glucose Level 100 mg/dL (70-99) Calcium Level < 5.0 mg/dL (8.5-10.1) Total Bilirubin 0.3 mg/dL (0.2-1.0) Aspartate Amino Transf (AST/SGOT) 25 U/L (15-37) Alanine Aminotransferase (ALT/SGPT) 32 U/L (16-63) Alkaline Phosphatase 48 U/L (46-116) Troponin I High Sensitivity 6 ng/L (4-75) Total Protein 3.9 g/dL (6.4-8.2) Albumin 1.8 g/dL (3.4-5.0) Albumin/Globulin Ratio 0.9 (1.0-1.7) Laboratory Tests Test 01/04/21 15:56 White Blood Count 10.1 x10^3/uL (4.0-11.0) Red Blood Count 2.92 x10^6/uL (4.30-5.70) Hemoglobin 9.9 g/dL (13.0-17.5) Hematocrit 28.4 % (39.0-53.0) Mean Corpuscular Volume 97 fL (79-100) Mean Corpuscular Hemoglobin 34 pg (25-35) Mean Corpuscular Hemoglobin Concent 35 g/dL (31-37) Red Cell Distribution Width 12.7 % (11.5-14.5) Platelet Count 170 x10^3/uL (140-400) Neutrophils (%) (Auto) 83 % (31-73) Lymphocytes (%) (Auto) 9 % (24-48) Monocytes (%) (Auto) 8 % (0-9) Eosinophils (%) (Auto) 0 % (0-3) Basophils (%) (Auto) 0 % (0-3) Neutrophils # (Auto) 8.4 x10^3/uL (1.8-7.7) Lymphocytes # (Auto) 1.0 x10^3/uL (1.0-4.8) Monocytes # (Auto) 0.8 x10^3/uL (0.0-1.1) Eosinophils # (Auto) 0.0 x10^3/uL (0.0-0.7) Basophils # (Auto) 0.0 x10^3/uL (0.0-0.2) Sodium Level 149 mmol/L (136-145) Potassium Level 1.9 mmol/L (3.5-5.1) Chloride Level 116 mmol/L (98-107) Carbon Dioxide Level 22 mmol/L (21-32) Anion Gap 11 (6-14) Blood Urea Nitrogen 14 mg/dL (8-26) Creatinine 0.6 mg/dL (0.7-1.3) Estimated GFR (Cockcroft-Gault) 133.2 BUN/Creatinine Ratio 23 (6-20) Glucose Level 100 mg/dL (70-99) Calcium Level < 5.0 mg/dL (8.5-10.1) Total Bilirubin 0.3 mg/dL (0.2-1.0) Aspartate Amino Transf (AST/SGOT) 25 U/L (15-37) Alanine Aminotransferase (ALT/SGPT) 32 U/L (16-63) Alkaline Phosphatase 48 U/L (46-116) Troponin I High Sensitivity 6 ng/L (4-75) Total Protein 3.9 g/dL (6.4-8.2) Albumin 1.8 g/dL (3.4-5.0) Albumin/Globulin Ratio 0.9 (1.0-1.7) Images: Images ROCEDURE: ACUTE ABDOMEN SERIES XR ABDOMEN COMP ACUTE History: Abdominal pain, vomiting Comparison: None. Technique: Frontal chest with upright and supine radiographs of the abdomen and pelvis. Findings: Chest: Hazy bilateral lower lobe airspace opacities. Left chest subcutaneous cardiac device. Bowel gas pattern: Nonspecific nonobstructive bowel gas pattern with a few gas- filled nondilated small bowel loops throughout the abdomen. Free air: None. Abnormal calcifications: A few left pelvic phleboliths. Bones: Mild degenerative changes of the spine. Other: None. Impression: 1. Nonspecific, nonobstructive bowel gas pattern. No free air. 2. Bilateral hazy lower lobe airspace opacities may represent pulmonary edema or multifocal infection. Pending CT ABD/PELVIS Assessment/Plan Assessment/Plan Acute pancreatitis Acute ABD pain secondary to acute pancreatitis and acute electrolyte derrangements mentioned below Severe hypokalemia Severe Hypocalcemia hx of HTN Hx of DLD Hx of SVT Admit to ICU for further management IV electrolyte replacement Continue aggressive IV fluid replacement IV pain control Strict n.p.o. Telemetry monitoring Every 4 hour chemistry trend Lovenox for DVT prophylaxis Protonix GI prophylaxis ADA diet CODE STATUS full Discussed with RN and SW Disposition ICU management DPOA: Total critical care time: 45 minutes in HPI, discussion with nurses and chart review. In addition to my E/M visit, advance care planning done with A total time of 20 minutes was spent from 7 PM to 7:20 PM face to face in discussion regarding the patient's goals of care, CODE STATUS. Justifications for Admission Other Justification JALEN ZAMUDIO MD Jan 04, 2021 17:20
[2021-01-04] MEDS ORDERED: SENNOSIDES 8.6 MG TABLET PO PRN (17:30)
[2021-01-04] MEDS ORDERED: PROCHLORPERAZINE 10 MG/2 ML VIAL. IV PRN (17:30)
[2021-01-04] MEDS ORDERED: MORPHINE SULFATE 4 MG/ML INJ. IVP PRN (17:30)
[2021-01-04] MEDS ORDERED: DEXTROSE 50% 25 GM / 50ML DISP.SYRIN. IV PRN (17:30)
[2021-01-04] MEDS ORDERED: POTASSIUM CHLORIDE 40 MEQ in IV NORMAL SALINE 1000ML BAG 1,000 ML IV SCH (17:30)
[2021-01-04] MEDS ORDERED: ONDANSETRON PF 4 MG/2 ML VIAL. IVP PRN (17:30)
--- NOTE | 2021-01-04 17:33 | RAD ---
EXAM: CT Abdomen and Pelvis with IV contrast CLINICAL HISTORY: Generalized pain, vomiting COMPARISON: none TECHNIQUE: Helical CT of the abdomen and pelvis was performed following the administration of intrave nous contrast. Axial, coronal and sagittal reformatted images were generated. PQRS compliance statement - One or more of the following individualized dose reduction techniques wer e utilized for this study: 1. Automated exposure control 2. Adjustment of the mA and/or kV according to patient size 3. Use of iterative reconstruction technique FINDINGS: Lower Chest: Dependent airspace opacities lower lobes likely atelectasis or developing consolidation. Abdomen and Pelvis: Spleen is unremarkable. Subcentimeter hypodense hepatic lesions too small to accurately characterize. Gallbladder is normal. No biliary ductal dilatation. Infiltration about the pancreas consistent with acute pancreatitis. No loculated fluid collection. Homogenous enhancement of the pancreas. Symmetric nephrograms. Subcentimeter hypodense renal lesions are too small to accurately characterize . Additional hypodense renal lesions bilaterally measure fluid density, likely cystic. Appendix is normal. Moderate colonic stool content is seen. No bowel obstruction. Fat-containing ingu inal hernias. Is normal in caliber. No abdominal or pelvic lymphadenopathy. No abdominal or pelvic as cites. Bones: No aggressive osseous lesion is seen. Degenerative changes of the spine are seen. IMPRESSION: 1. Changes of acute pancreatitis without loculated fluid collection 2. No pleural effusions are seen. 3. Airspace opacities lower lobes likely consolidative process such as pneumonia. Electronically signed by: Tobi Drummond MD (01/04/2021 5:30 PM) S[facility]
[2021-01-04 18:32] LABS: BILIRUBIN,URINE NEGATIVE (NEG); CLARITY,URINE CLEAR; COLOR,URINE YELLOW; NITRITE,URINE NEGATIVE (NEG); PH,URINE 5.5 (<5.0-8.0); PROTEIN,URINE NEGATIVE (NEG-TRACE); UROBILINOGEN,URINE 0.2 mg/dL (0.2 mg/dL)
[2021-01-04 18:45] LABS: BACTERIA,URINE FEW /HPF (0-FEW)
[2021-01-04 18:46] LABS: HYALINE CASTS, URINE OCCASIONAL /HPF; RBC,URINE 0 /HPF (0-2)
[2021-01-04] MEDS: POTASSIUM CHLORIDE 20MEQ 100 ML IV SCH ×4 (19:27→22:49)
[2021-01-04] MEDS: IV 1/2 NORMAL SALINE 1,000 ML IV SCH (19:28)
[2021-01-04] MEDS ORDERED: MAGNESIUM SULFATE 2GM 50 ML IV ONE ×2 (19:30)
[2021-01-04] MEDS ORDERED: MORPHINE SULFATE 2 MG/ML INJ. IV PRN (19:45)
--- NOTE | 2021-01-04 20:00 | NUR ---
Patient states he only takes Lopressor (Metoprolol) 50mg once a day in the morning and he has taken his morning dose on 01/04.
[2021-01-04 20:03] LABS: CHOLESTEROL/HDL RATIO 3.9
[2021-01-04] MEDS: METOPROLOL TART IMMED RELEASE 50 MG TABLET. PO SCH ×2 (21:00→21:11)
[2021-01-04] MEDS: SIMVASTATIN 20 MG TABLET PO SCH (21:10)
[2021-01-04] MEDS: APIXABAN 5 MG TABLET. PO SCH (21:11)
[2021-01-04] MEDS: traZODone 100 MG TABLET. PO SCH (21:11)
[2021-01-04] MEDS: MORPHINE SULFATE 2 MG/ML INJ. IV PRN (22:32)
[2021-01-04 23:22] LABS: CALCIUM 8.1 mg/dL (8.5-10.1); CREATININE 1.1 mg/dL (0.7-1.3); GFR 66.2; MAGNESIUM 2.7 mg/dL (1.8-2.4); POTASSIUM 4.8 mmol/L (3.5-5.1)
[2021-01-05] VITALS (19 sets, daily range): BP systolic 101–131; BP diastolic 64–75
[2021-01-05] MEDS: POTASSIUM CHLORIDE 20MEQ 100 ML IV SCH (00:06)
[2021-01-05] MEDS: IV 1/2 NORMAL SALINE 1,000 ML IV SCH ×2 (01:24→08:47)
[2021-01-05 04:12] LABS: BASO % 0 % (0-3); EOS % 0 % (0-3); HEMATOCRIT 43.2 % (39.0-53.0); HEMOGLOBIN 14.9 g/dL (13.0-17.5); LYMPH # 0.7 x10^3/uL (1.0-4.8); LYMPH % 6 % (24-48); MEAN CORPUSCULAR HEMOGLOBIN 34 pg (25-35); MEAN CORPUSCULAR HGB CONC 35 g/dL (31-37); MEAN CORPUSCULAR VOLUME 97 fL (79-100); MONO # 0.8 x10^3/uL (0.0-1.1); MONO % 7 % (0-9); NEUT # 9.6 x10^3/uL (1.8-7.7); NEUT % 86 % (31-73); PLATELET COUNT 219 x10^3/uL (140-400); RED BLOOD COUNT 4.44 x10^6/uL (4.30-5.70); RED CELL DISTRIBUTION WIDTH 12.6 % (11.5-14.5); WHITE BLOOD COUNT 11.1 x10^3/uL (4.0-11.0)
[2021-01-05 04:33] LABS: CALCIUM 7.8 mg/dL (8.5-10.1); CREATININE 0.9 mg/dL (0.7-1.3); GFR 83.4; MAGNESIUM 2.6 mg/dL (1.8-2.4); PHOSPHORUS 2.4 mg/dL (2.6-4.7); POTASSIUM 4.3 mmol/L (3.5-5.1)
--- NOTE | 2021-01-05 09:18 | NUR ---
SS following for discharge planning. SS reviewed pt chart and discussed with pt RN. Pt is from home with spouse and is currently on room air. COVID19 negative. Pt has home CPAP. Pt on IV Normal Saline. SS will continue to follow for discharge planning.
[2021-01-05] MEDS: MORPHINE SULFATE 2 MG/ML INJ. IV PRN ×2 (10:19→15:28)
[2021-01-05] MEDS: AMPICILLIN/SULBACTAM 3 GM in IV NORMAL SALINE 100ML 100 ML IV SCH ×2 (11:37→17:41)
[2021-01-05] MEDS: AZITHROMYCIN 500 MG in IV NORMAL SALINE 250ML 250 ML IV SCH (11:39)
[2021-01-05 13:08] LABS: PHOSPHORUS 2.6 mg/dL (2.6-4.7)
--- NOTE | 2021-01-05 13:15 | PDOC ---
[employer] [facility] PROGRESS NOTE Date of Service DOS: DATE: 01/05/21 TIME: 13:13 Chief Complaint Chief Complaint Assessment/Plan Acute pancreatitis Acute ABD pain secondary to acute pancreatitis and acute electrolyte derrangements mentioned below Severe hypokalemia Severe Hypocalcemia hx of HTN Hx of DLD Hx of SVT Bacterial pneumonia likely gram-negative IV electrolyte replacement Continue aggressive IV fluid replacement IV pain control N.p.o. with oral meds okay Unasyn and azithromycin started. Telemetry monitoring Every 4 hour chemistry trend Lovenox for DVT prophylaxis Protonix GI prophylaxis ADA diet CODE STATUS full Discussed with RN and SW Disposition ICU management DPOA: History of Present Illness History of Present Illness 70-year-old male with past medical history of hypertension, dyslipidemia who comes in with diffuse abdominal pain associated with nausea vomiting. Patient had a colonoscopy on Saturday this week and since that time he has had abdominal pain that is progressively gotten worse. Pain is 7 out of 10 and mainly in his mid abdomen and radiates downwards. Colonoscopy in the past has been uneventful. Unsure of his had any biopsy done. Denies fevers, chest pain, diarrhea, shortness of breath or dysuria 01/05 Patient evaluated examined at bedside. He was doing well resting in bed. Says abdominal pain is still present but improving. Do see mention of pneumonia on CT scan will order chest x-ray for further evaluation. Continue treatment of pancreatitis. Okay to transfer out of ICU. Electrolyte abnormalities have improved. Vitals/I&O Vitals/I&O: Vital Signs Date Time Temp Pulse Resp B/P (MAP) Pulse Ox O2 Delivery O2 Flow Rate FiO2 01/05/21 13:00 68 16 120/72 (88) 93 Room Air 01/05/21 12:00 97.6 97.6 I & O 01/04/21 01/04/21 01/05/21 15:00 23:00 07:00 Intake Total 700 ml 1975 ml Output Total 325 ml 250 ml Balance 375 ml 1725 ml Physical Exam General: Alert, Oriented X3, Cooperative Heart: Regular rate, Normal S1, Normal S2 Lungs: Clear Abdomen: Other (Diffusely tender) Extremities: No edema, Normal pulses Skin: No significant lesion Labs Labs: Laboratory Tests Test 01/04/21 15:56 01/04/21 16:32 01/04/21 17:53 11/3/21 18:23 White Blood Count 10.1 x10^3/uL (4.0-11.0) Red Blood Count 2.92 x10^6/uL (4.30-5.70) Hemoglobin 9.9 g/dL (13.0-17.5) Hematocrit 28.4 % (39.0-53.0) Mean Corpuscular Volume 97 fL (79-100) Mean Corpuscular Hemoglobin 34 pg (25-35) Mean Corpuscular Hemoglobin Concent 35 g/dL (31-37) Red Cell Distribution Width 12.7 % (11.5-14.5) Platelet Count 170 x10^3/uL (140-400) Neutrophils (%) (Auto) 83 % (31-73) Lymphocytes (%) (Auto) 9 % (24-48) Monocytes (%) (Auto) 8 % (0-9) Eosinophils (%) (Auto) 0 % (0-3) Basophils (%) (Auto) 0 % (0-3) Neutrophils # (Auto) 8.4 x10^3/uL (1.8-7.7) Lymphocytes # (Auto) 1.0 x10^3/uL (1.0-4.8) Monocytes # (Auto) 0.8 x10^3/uL (0.0-1.1) Eosinophils # (Auto) 0.0 x10^3/uL (0.0-0.7) Basophils # (Auto) 0.0 x10^3/uL (0.0-0.2) Sodium Level 149 mmol/L (136-145) Potassium Level 1.9 mmol/L (3.5-5.1) Chloride Level 116 mmol/L (98-107) Carbon Dioxide Level 22 mmol/L (21-32) Anion Gap 11 (6-14) Blood Urea Nitrogen 14 mg/dL (8-26) Creatinine 0.6 mg/dL (0.7-1.3) Estimated GFR (Cockcroft-Gault) 133.2 BUN/Creatinine Ratio 23 (6-20) Glucose Level 100 mg/dL (70-99) Lactic Acid Level 1.5 mmol/L (0.4-2.0) Calcium Level < 5.0 mg/dL (8.5-10.1) Magnesium Level 0.9 mg/dL (1.8-2.4) Total Bilirubin 0.3 mg/dL (0.2-1.0) Aspartate Amino Transf (AST/SGOT) 25 U/L (15-37) Alanine Aminotransferase (ALT/SGPT) 32 U/L (16-63) Alkaline Phosphatase 48 U/L (46-116) Troponin I High Sensitivity 6 ng/L (4-75) Total Protein 3.9 g/dL (6.4-8.2) Albumin 1.8 g/dL (3.4-5.0) Albumin/Globulin Ratio 0.9 (1.0-1.7) Triglycerides Level 57 mg/dL (0-150) Cholesterol Level 85 mg/dL (0-200) LDL Cholesterol, Calculated 52 mg/dL (0-100) VLDL Cholesterol, Calculated 11 mg/dL (0-40) Non-HDL Cholesterol Calculated 63 mg/dL (0-129) HDL Cholesterol 22 mg/dL (40-60) Cholesterol/HDL Ratio 3.9 Lipase 00582 U/L (73-393) Thyroid Stimulating Hormone (TSH) 0.493 uIU/mL (0.358-3.74) SARS-CoV-2 RNA (ALANA) Negative (Negative) SARS-CoV-2 Antigen (Rapid) Negative (NEGATIVE) Ionized Calcium 1.15 mmol/L (1.13-1.32) Urine Collection Type Unknown Urine Color Yellow Urine Clarity Clear Urine pH 5.5 (<5.0-8.0) Urine Specific [place] >=1.030 (1.000-1.030) Urine Protein Negative mg/dL (NEG-TRACE) Urine Glucose (UA) Negative mg/dL (NEG) Urine Ketones (Stick) Negative mg/dL (NEG) Urine Blood Negative (NEG) Urine Nitrite Negative (NEG) Urine Bilirubin Negative (NEG) Urine Urobilinogen Dipstick 0.2 mg/dL (0.2 mg/dL) Urine Leukocyte Esterase Negative (NEG) Urine RBC 0 /HPF (0-2) Urine WBC 1-4 /HPF (0-4) Urine Squamous Epithelial Cells Occ /LPF Urine Bacteria Few /HPF (0-FEW) Urine Hyaline Casts Occasional /HPF Urine Mucus Slight /LPF Test 01/04/21 23:10 01/05/21 03:30 01/05/21 11:28 Sodium Level 138 mmol/L (136-145) 136 mmol/L (136-145) Potassium Level 4.8 mmol/L (3.5-5.1) 4.3 mmol/L (3.5-5.1) Chloride Level 104 mmol/L (98-107) 102 mmol/L (98-107) Carbon Dioxide Level 29 mmol/L (21-32) 25 mmol/L (21-32) Anion Gap 5 (6-14) 9 (6-14) Blood Urea Nitrogen 17 mg/dL (8-26) 17 mg/dL (8-26) Creatinine 1.1 mg/dL (0.7-1.3) 0.9 mg/dL (0.7-1.3) Estimated GFR (Cockcroft-Gault) 66.2 83.4 Glucose Level 130 mg/dL (70-99) 122 mg/dL (70-99) Calcium Level 8.1 mg/dL (8.5-10.1) 7.8 mg/dL (8.5-10.1) Magnesium Level 2.7 mg/dL (1.8-2.4) 2.6 mg/dL (1.8-2.4) 2.0 mg/dL (1.8-2.4) White Blood Count 11.1 x10^3/uL (4.0-11.0) Red Blood Count 4.44 x10^6/uL (4.30-5.70) Hemoglobin 14.9 g/dL (13.0-17.5) Hematocrit 43.2 % (39.0-53.0) Mean Corpuscular Volume 97 fL (79-100) Mean Corpuscular Hemoglobin 34 pg (25-35) Mean Corpuscular Hemoglobin Concent 35 g/dL (31-37) Red Cell Distribution Width 12.6 % (11.5-14.5) Platelet Count 219 x10^3/uL (140-400) Neutrophils (%) (Auto) 86 % (31-73) Lymphocytes (%) (Auto) 6 % (24-48) Monocytes (%) (Auto) 7 % (0-9) Eosinophils (%) (Auto) 0 % (0-3) Basophils (%) (Auto) 0 % (0-3) Neutrophils # (Auto) 9.6 x10^3/uL (1.8-7.7) Lymphocytes # (Auto) 0.7 x10^3/uL (1.0-4.8) Monocytes # (Auto) 0.8 x10^3/uL (0.0-1.1) Eosinophils # (Auto) 0.0 x10^3/uL (0.0-0.7) Basophils # (Auto) 0.0 x10^3/uL (0.0-0.2) Phosphorus Level 2.4 mg/dL (2.6-4.7) 2.6 mg/dL (2.6-4.7) Assessment and Plan Assessmemt and Plan Problems Medical Problems: (1) Abdominal pain Status: Acute (2) Hypocalcemia Status: Acute (3) Hypokalemia Status: Acute (4) Pancreatitis, acute Status: Acute (5) Person under investigation for COVID-19 Status: Acute (6) Pneumonia Status: Acute Comment Review of Relevant I have reviewed the following items damian (where applicable) has been applied. Medications: Current Medications Medications (Trade) Dose Ordered Sig/Kerry Route PRN Reason Start Time Stop Time Status Last Admin Dose Admin Morphine Sulfate (Morphine Sulfate) 4 mg PRN Q15MIN PRN IV/SQ PAIN GREATER THAN 3/10 01/04/21 15:45 01/05/21 15:44 01/04/21 16:55 Sodium Chloride 1,000 ml @ 1,000 mls/hr Q1H IV 01/04/21 15:45 01/04/21 16:44 DC 01/04/21 15:53 Ondansetron HCl (Zofran) 4 mg 1X ONCE IVP 01/04/21 15:45 01/04/21 15:51 DC 01/04/21 15:53 Iohexol (Omnipaque 300 Mg/ml) 75 ml 1X ONCE IV 01/04/21 17:00 01/04/21 17:01 DC 01/04/21 16:57 Levofloxacin/ Dextrose 150 ml @ 100 mls/hr 1X ONCE IV 01/04/21 17:15 01/04/21 18:44 DC 01/04/21 18:18 Potassium Chloride/Water 100 ml @ 50 mls/hr Q2H IV 01/04/21 17:30 01/05/21 03:29 DC 01/05/21 00:06 Sodium Chloride 1,000 ml @ 150 mls/hr Q6H40M IV 01/04/21 17:30 01/05/21 08:47 Morphine Sulfate (Morphine Sulfate) 4 mg PRN Q2HR PRN IVP PAIN 01/04/21 17:30 01/05/21 17:29 01/05/21 03:00 Apixaban (Eliquis) 5 mg BID PO 01/04/21 21:00 01/04/21 21:11 Simvastatin (Zocor) 20 mg QHS PO 01/04/21 21:00 01/04/21 21:10 Trazodone HCl (Desyrel) 100 mg QHS PO 01/04/21 21:00 01/04/21 21:11 Magnesium Sulfate 50 ml @ 25 mls/hr 1X ONCE IV 01/04/21 19:30 01/04/21 21:29 DC 01/04/21 20:25 Magnesium Sulfate 50 ml @ 25 mls/hr 1X ONCE IV 01/04/21 19:30 01/04/21 21:29 DC 01/04/21 21:36 Morphine Sulfate (Morphine Sulfate) 2 mg PRN Q1HR PRN IV PAIN 01/04/21 19:45 01/05/21 10:19 Ampicillin Sodium/ Sulbactam Sodium 3 gm/Sodium Chloride 100 ml @ 200 mls/hr Q6HRS IV 01/05/21 12:00 01/05/21 11:37 Azithromycin 500 mg/Sodium Chloride 250 ml @ 250 mls/hr Q24H IV 01/05/21 12:00 01/08/21 11:59 01/05/21 11:39 Justifications for Admission Other Justification ABD pain due to hypocalcemia JACOBO COLEMAN MD Jan 05, 2021 13:15
--- NOTE | 2021-01-05 14:45 | RAD ---
EXAM: XR CHEST 1V 01/05/2021 11:05 AM CLINICAL INDICATION: Shortness of breath, evaluate pneumonia COMPARISON: CT abdomen and pelvis 01/04/2021 TECHNIQUE: AP view of the chest FINDINGS: The heart appears mildly enlarged. There is elevation of the left diaphragm. Left greater t nathan right basilar opacities and possible small pleural effusion are unchanged. No pneumothorax. IMPRESSION: Elevated left hemidiaphragm with left greater than right basilar opacities and possible s mall left pleural effusion, similar to CT abdomen pelvis 01/04/2021. Electronically signed by: Vernell Bradford MD (01/05/2021 2:43 PM) [id number]
[2021-01-05] MEDS: APIXABAN 5 MG TABLET. PO SCH ×2 (15:27→20:21)
[2021-01-05] MEDS: METOPROLOL TART IMMED RELEASE 50 MG TABLET. PO SCH ×2 (15:27→20:21)
[2021-01-05] MEDS: ASPIRIN ENTERIC COATED 81 MG TABLET.DR. PO SCH (15:27)
[2021-01-05] MEDS: FLUTICASONE 50MCG/NASAL SPRAY 16GM BOTTLE. NS SCH (15:29)
[2021-01-05] MEDS: SIMETHICONE 80 MG TAB.CHEW PO PRN (15:46)
[2021-01-05] MEDS: LORazepam 0.5 MG TABLET PO PRN (19:57)
[2021-01-05] MEDS: SIMVASTATIN 20 MG TABLET PO SCH (20:21)
[2021-01-05] MEDS: ACETAMINOPHEN 325 MG TABLET. PO PRN (20:21)
[2021-01-05] MEDS: traZODone 100 MG TABLET. PO SCH (20:21)
--- NOTE | 2021-01-05 20:30 | NUR ---
Patient states he only takes Lopressor (Metoprolol) 50mg once a day in the morning. So this nurse non admin PM dose
[2021-01-05 20:48] LABS: ALBUMIN 2.5 g/dL (3.4-5.0); ALBUMIN/GLOBULIN RATIO 0.8 (1.0-1.7); CREATININE 0.9 mg/dL (0.7-1.3); GFR 83.4; TOTAL BILIRUBIN 0.6 mg/dL (0.2-1.0); TOTAL PROTEIN 5.7 g/dL (6.4-8.2)
[2021-01-05 20:50] LABS: CALCIUM 7.8 mg/dL (8.5-10.1); POTASSIUM 4.3 mmol/L (3.5-5.1)
[2021-01-06] MEDS: AMPICILLIN/SULBACTAM 3 GM in IV NORMAL SALINE 100ML 100 ML IV SCH ×4 (00:29→18:37)
[2021-01-06 03:00] VITALS: BP 131/66
[2021-01-06 04:47] LABS: BASO % 0 % (0-3); EOS % 0 % (0-3); HEMATOCRIT 43.6 % (39.0-53.0); LYMPH # 0.8 x10^3/uL (1.0-4.8); LYMPH % 5 % (24-48); MEAN CORPUSCULAR HEMOGLOBIN 33 pg (25-35); MEAN CORPUSCULAR HGB CONC 34 g/dL (31-37); MEAN CORPUSCULAR VOLUME 97 fL (79-100); MONO # 1.4 x10^3/uL (0.0-1.1); MONO % 8 % (0-9); NEUT # 15.1 x10^3/uL (1.8-7.7); NEUT % 87 % (31-73); PLATELET COUNT 205 x10^3/uL (140-400); RED BLOOD COUNT 4.49 x10^6/uL (4.30-5.70); WHITE BLOOD COUNT 17.4 x10^3/uL (4.0-11.0)
[2021-01-06 05:00] LABS: CALCIUM 7.5 mg/dL (8.5-10.1); GFR 73.9; MAGNESIUM 2.1 mg/dL (1.8-2.4)
[2021-01-06 06:48] LABS: % BANDS 6 % (0-9); % LYMPHS 2 % (24-48); % MONOS 4 % (0-10); % SEGS 88 % (35-66); PLT ESTIMATE ADEQUATE (ADEQUATE)
[2021-01-06] MEDS ORDERED: ANTI-COAG MONITOR BY PHARMACY. MC PRN (07:45)
[2021-01-06 08:22] VITALS: BP 115/54
[2021-01-06] MEDS: FLUTICASONE 50MCG/NASAL SPRAY 16GM BOTTLE. NS SCH (09:00)
[2021-01-06] MEDS: ONDANSETRON PF 4 MG/2 ML VIAL. IVP PRN (10:39)
[2021-01-06] MEDS: APIXABAN 5 MG TABLET. PO SCH ×2 (10:40→21:29)
[2021-01-06] MEDS: DOCUSATE SODIUM 100 MG CAPSULE. PO PRN (10:40)
[2021-01-06] MEDS: ACETAMINOPHEN 325 MG TABLET. PO PRN (10:40)
[2021-01-06] MEDS: ASPIRIN ENTERIC COATED 81 MG TABLET.DR. PO SCH (10:40)
[2021-01-06] MEDS: METOPROLOL TART IMMED RELEASE 50 MG TABLET. PO SCH (10:43)
[2021-01-06] MEDS: MORPHINE SULFATE 2 MG/ML INJ. IV PRN ×2 (10:55→15:09)
[2021-01-06 11:00] VITALS: BP 115/66
--- NOTE | 2021-01-06 13:05 | PDOC2 ---
GI CONSULT Date of Service: DATE: 01/06/21 TIME: 13:05 Reason For Consult: pancreatitis HPI: HPI: 70 y/o male admitted through ER 01/04/21. Ill since Saturday after lunch with abdominal pain that became progressively worse. Went to , developed n/v, advised to come to ER. Labs and imaging c/w pancreatitis. On atbx for possible pneumonia - Jarocho wonders how he could have pneumonia - says they have been very cautious w/ COVID - rarely leave the house, don't see many people, etc. Also no SOA, cough, etc. Currently pain is mostly across lower abdomen. Has tried clears - noted increase in pain after this. Rare reflux after spicy foods, sometimes takes Tums. No dysphagia, hematemesis, diarrhea, constipation, hematochezia, melena, or weight loss. No previous EGD. Reports normal screening colonoscopy except a few diverticula w/ Dr. William on 01/02/21 @ [facility]. No GB, liver, pancreas, or PUD history. H/o A Fib on amiodarone, Eliquis, ASA. PMH: PMH: A Fib, PAT w/ CPAP, Meniere's, HTN, HLD, SVT bilateral knee surgeries, cardioversion, bilateral CTR FH: Family History: No pertinent hx Social History: Smoke: Quit ALCOHOL: occassional (couple beers a week, sometimes none - no heavy alcohol history) Drugs: None ROS: GEN: Denies fevers, chills, sweats HEENT: Denies blurred vision, sore throat CV: Denies chest pain RESP: Denies shortness of air, cough GI: Per HPI : Denies hematuria, dysuria ENDO: Denies weight changes NEURO: Denies confusion, dizziness MSK: Denies weakness, joint pain/swelling SKIN: Denies jaundice, pruritus Vitals: Vitals: Vital Signs Date Time Temp Pulse Resp B/P (MAP) Pulse Ox O2 Delivery O2 Flow Rate FiO2 01/06/21 10:55 20 91 Room Air 01/06/21 10:43 72 115/66 01/06/21 08:22 98.8 98.8 Labs: Labs: Laboratory Tests Test 01/06/21 04:05 White Blood Count 17.4 x10^3/uL (4.0-11.0) Red Blood Count 4.49 x10^6/uL (4.30-5.70) Hemoglobin 15.0 g/dL (13.0-17.5) Hematocrit 43.6 % (39.0-53.0) Mean Corpuscular Volume 97 fL (79-100) Mean Corpuscular Hemoglobin 33 pg (25-35) Mean Corpuscular Hemoglobin Concent 34 g/dL (31-37) Red Cell Distribution Width 13.0 % (11.5-14.5) Platelet Count 205 x10^3/uL (140-400) Neutrophils (%) (Auto) 87 % (31-73) Lymphocytes (%) (Auto) 5 % (24-48) Monocytes (%) (Auto) 8 % (0-9) Eosinophils (%) (Auto) 0 % (0-3) Basophils (%) (Auto) 0 % (0-3) Neutrophils # (Auto) 15.1 x10^3/uL (1.8-7.7) Lymphocytes # (Auto) 0.8 x10^3/uL (1.0-4.8) Monocytes # (Auto) 1.4 x10^3/uL (0.0-1.1) Eosinophils # (Auto) 0.0 x10^3/uL (0.0-0.7) Basophils # (Auto) 0.0 x10^3/uL (0.0-0.2) Segmented Neutrophils % 88 % (35-66) Band Neutrophils % 6 % (0-9) Lymphocytes % 2 % (24-48) Monocytes % 4 % (0-10) Platelet Estimate Adequate (ADEQUATE) Sodium Level 135 mmol/L (136-145) Potassium Level 4.0 mmol/L (3.5-5.1) Chloride Level 102 mmol/L (98-107) Carbon Dioxide Level 24 mmol/L (21-32) Anion Gap 9 (6-14) Blood Urea Nitrogen 17 mg/dL (8-26) Creatinine 1.0 mg/dL (0.7-1.3) Estimated GFR (Cockcroft-Gault) 73.9 Glucose Level 94 mg/dL (70-99) Calcium Level 7.5 mg/dL (8.5-10.1) Magnesium Level 2.1 mg/dL (1.8-2.4) BLOOD CULTURE Preliminary NO GROWTH AFTER 1 DAY Allergies: Coded Allergies: No Known Drug Allergies (Unverified , 09/30/18) Medications: Current Medications Medications (Trade) Dose Ordered Sig/Kerry Route PRN Reason Start Time Stop Time Status Last Admin Dose Admin Simethicone (Gas-X) 80 mg PRN AFTMEALHC PRN PO GAS / BLOATING 01/05/21 15:30 01/05/21 15:46 Info (Anti-Coagulation Monitoring By Pharmacy) 1 each PRN DAILY PRN MC PER PROTOCOL 01/06/21 07:45 01/06/21 07:44 Imaging: Imaging: AAS Impression: 1. Nonspecific, nonobstructive bowel gas pattern. No free air. 2. Bilateral hazy lower lobe airspace opacities may represent pulmonary edema or multifocal infection. CT A/P IMPRESSION: 1. Changes of acute pancreatitis without loculated fluid collection 2. No pleural effusions are seen. 3. Airspace opacities lower lobes likely consolidative process such as pneumonia. CXR IMPRESSION: Elevated left hemidiaphragm with left greater than right basilar opacities and possible small left pleural effusion, similar to CT abdomen pelvis 01/04/2021. PE: GEN: NAD HEENT: Atraumatic, PERRL LUNGS: clear anteriorly HEART: RRR ABD: quiet, S/ND, mild discomfort across lower abdomen - worse to right? EXTREMITY: No edema SKIN: No rashes, no jaundice NEURO/PSYCH: A & O 3, cooperative A/P: A/P: Pancreatitis - unclear cause Leukocytosis, hypocalcemia, possible pneumonia ?anemia - Hgb 9.9 on admission, normal since CRC screen - colonoscopy this week Diverticulosis COVID negative -- Unclear cause of pancreatitis - no significant alcohol history, no gallstones on CT, normal triglycerides. Check US for completeness - r/o gallstones. Supportive care w/ IVF, anti-emetics, pain medication. Empiric PPI. Sips of clears okay to try. Consider interval CT and/or PPN/TPN if no improvement. SHAHEED PAINTING Jan 06, 2021 13:05
[2021-01-06 15:00] VITALS: BP 112/68
[2021-01-06] MEDS: PANTOPRAZOLE IV PUSH 40 MG VIAL. IVP SCH (15:30)
[2021-01-06] MEDS: AZITHROMYCIN 500 MG in IV NORMAL SALINE 250ML 250 ML IV SCH (15:33)
--- NOTE | 2021-01-06 15:55 | NUR ---
SS following up with discharge planning. SS reviewed pt chart and discussed with pt RN. Pt is currently on room air. Pt has home CPAP. COVID19 negative. GI consulted. Pt on IV Azithromycin and IV Ampcillin. Pt downgraded. SS will continue to follow for discharge planning.
[2021-01-06] MEDS ORDERED: AA 4.25 %/CALCIUM/LYTES/D5W 1,000 ML IV SCH (16:15)
[2021-01-06] MEDS: IV DEXTROSE 5%-LACT RINGERS 1,000 ML IV SCH (16:46)
--- NOTE | 2021-01-06 17:26 | RAD ---
EXAM: ULTRASOUND ABDOMEN LIMITED CLINICAL HISTORY: Reason: pancreatitis, evaluation for gallstones / Spl. Instructions: / History: COMPARISON: January 04, 2021. TECHNIQUE: Limited ultrasound examination of the right upper quadrant of the abdomen was performed. FINDINGS: The pancreas and abdominal aorta and IVC are poorly visualized due to overlying bowel gas. The liver measures 17.4 cm in length which is normal. No hepatic mass is seen. The gallbladder is normal and no gallstones are seen. The extra hepatic bile duct measures 6 mm in caliber which is normal. The lengt h of the right kidney is 11.0 cm. No hydronephrosis or renal mass or perinephric fluid collection is seen on this side. There is a small amount of free fluid along the inferior edge of the liver. IMPRESSION: Small amount of free fluid. No gallstones are seen within the gallbladder. Electronically signed by: Alberto Orellana MD (01/06/2021 5:24 PM) [id number]
--- NOTE | 2021-01-06 19:59 | PDOC ---
[employer] PROGRESS NOTE Date of Service DOS: DATE: 01/06/21 TIME: 19:58 Chief Complaint Chief Complaint Assessment/Plan Acute pancreatitis Acute ABD pain secondary to acute pancreatitis and acute electrolyte derrangements mentioned below Severe hypokalemia Severe Hypocalcemia hx of HTN Hx of DLD Hx of SVT Bacterial pneumonia likely gram-negative IV electrolyte replacement Continue aggressive IV fluid replacement IV pain control N.p.o. with oral meds okay Unasyn and azithromycin started. Telemetry monitoring Every 4 hour chemistry trend Lovenox for DVT prophylaxis Protonix GI prophylaxis ADA diet CODE STATUS full Discussed with RN and SW Disposition ICU management DPOA: History of Present Illness History of Present Illness 70-year-old male with past medical history of hypertension, dyslipidemia who comes in with diffuse abdominal pain associated with nausea vomiting. Patient had a colonoscopy on Saturday this week and since that time he has had abdominal pain that is progressively gotten worse. Pain is 7 out of 10 and mainly in his mid abdomen and radiates downwards. Colonoscopy in the past has been uneventful. Unsure of his had any biopsy done. Denies fevers, chest pain, diarrhea, shortness of breath or dysuria 01/05 Patient evaluated examined at bedside. He was doing well resting in bed. Says abdominal pain is still present but improving. Do see mention of pneumonia on CT scan will order chest x-ray for further evaluation. Continue treatment of pancreatitis. Okay to transfer out of ICU. Electrolyte abnormalities have improved. 01/06 Patient evaluated examined at bedside. He was up in the chair complaining of crampy abdominal pain particularly in his midepigastrium. He had just received morphine and Zofran before entering the room. Recommended he also try GI cocktail. Given ongoing pain will consult GI as no apparent cause of his pancreatitis from my standpoint. Okay still to transfer out of ICU. Vitals/I&O Vitals/I&O: Vital Signs Date Time Temp Pulse Resp B/P (MAP) Pulse Ox O2 Delivery O2 Flow Rate FiO2 01/06/21 15:39 20 91 Room Air 2.0 01/06/21 15:00 99.4 64 112/68 (83) 99.4 I & O 01/05/21 01/05/21 01/06/21 15:00 23:00 07:00 Intake Total 550 ml 2004 ml 250 ml Output Total 725 ml 400 ml Balance -175 ml 1604 ml 250 ml Physical Exam General: Alert, Oriented X3, Cooperative Heart: Regular rate, Normal S1, Normal S2 Lungs: Clear Abdomen: Other (Diffusely tender) Extremities: No edema, Normal pulses Skin: No significant lesion Labs Labs: Laboratory Tests Test 01/06/21 04:05 White Blood Count 17.4 x10^3/uL (4.0-11.0) Red Blood Count 4.49 x10^6/uL (4.30-5.70) Hemoglobin 15.0 g/dL (13.0-17.5) Hematocrit 43.6 % (39.0-53.0) Mean Corpuscular Volume 97 fL (79-100) Mean Corpuscular Hemoglobin 33 pg (25-35) Mean Corpuscular Hemoglobin Concent 34 g/dL (31-37) Red Cell Distribution Width 13.0 % (11.5-14.5) Platelet Count 205 x10^3/uL (140-400) Neutrophils (%) (Auto) 87 % (31-73) Lymphocytes (%) (Auto) 5 % (24-48) Monocytes (%) (Auto) 8 % (0-9) Eosinophils (%) (Auto) 0 % (0-3) Basophils (%) (Auto) 0 % (0-3) Neutrophils # (Auto) 15.1 x10^3/uL (1.8-7.7) Lymphocytes # (Auto) 0.8 x10^3/uL (1.0-4.8) Monocytes # (Auto) 1.4 x10^3/uL (0.0-1.1) Eosinophils # (Auto) 0.0 x10^3/uL (0.0-0.7) Basophils # (Auto) 0.0 x10^3/uL (0.0-0.2) Segmented Neutrophils % 88 % (35-66) Band Neutrophils % 6 % (0-9) Lymphocytes % 2 % (24-48) Monocytes % 4 % (0-10) Platelet Estimate Adequate (ADEQUATE) Sodium Level 135 mmol/L (136-145) Potassium Level 4.0 mmol/L (3.5-5.1) Chloride Level 102 mmol/L (98-107) Carbon Dioxide Level 24 mmol/L (21-32) Anion Gap 9 (6-14) Blood Urea Nitrogen 17 mg/dL (8-26) Creatinine 1.0 mg/dL (0.7-1.3) Estimated GFR (Cockcroft-Gault) 73.9 Glucose Level 94 mg/dL (70-99) Calcium Level 7.5 mg/dL (8.5-10.1) Magnesium Level 2.1 mg/dL (1.8-2.4) Assessment and Plan Assessmemt and Plan Problems Medical Problems: (1) Abdominal pain Status: Acute (2) Hypocalcemia Status: Acute (3) Hypokalemia Status: Acute (4) Pancreatitis, acute Status: Acute (5) Person under investigation for COVID-19 Status: Acute (6) Pneumonia Status: Acute Comment Review of Relevant I have reviewed the following items damian (where applicable) has been applied. Medications: Current Medications Medications (Trade) Dose Ordered Sig/Kerry Route PRN Reason Start Time Stop Time Status Last Admin Dose Admin Info (Anti-Coagulation Monitoring By Pharmacy) 1 each PRN DAILY PRN MC PER PROTOCOL 01/06/21 07:45 01/06/21 07:44 Pantoprazole Sodium (PROTONIX VIAL for IV PUSH) 40 mg DAILYAC IVP 01/06/21 13:30 01/06/21 15:30 Dextrose/Lactated Ringer's 1,000 ml @ 80 mls/hr [id number] IV 01/06/21 16:15 01/06/21 16:46 Justifications for Admission Other Justification ABD pain due to hypocalcemia JACOBO COLEMAN MD Jan 06, 2021 19:59
[2021-01-06] MEDS: LACTOBACILLUS RHAMNOSUS GG 1 CAPSULE. PO SCH (21:28)
[2021-01-06] MEDS: SIMVASTATIN 20 MG TABLET PO SCH (21:29)
[2021-01-06] MEDS: traZODone 100 MG TABLET. PO SCH (21:29)
[2021-01-06] MEDS: ZOLPIDEM 5 MG TABLET. PO PRN (21:29)
[2021-01-06 23:00] VITALS: BP 130/71
[2021-01-07] MEDS: AMPICILLIN/SULBACTAM 3 GM in IV NORMAL SALINE 100ML 100 ML IV SCH ×5 (00:07→23:49)
[2021-01-07 03:00] VITALS: BP 127/71
[2021-01-07] MEDS: IV DEXTROSE 5%-LACT RINGERS 1,000 ML IV SCH ×3 (03:56→21:14)
[2021-01-07] MEDS: LIDO:MAALOX 1:1 20 ML SINGLE DOSE. PO PRN ×2 (04:00→09:27)
[2021-01-07] MEDS: ONDANSETRON PF 4 MG/2 ML VIAL. IVP PRN (04:00)
[2021-01-07 07:00] VITALS: BP 136/73
[2021-01-07 08:22] LABS: CALCIUM 7.8 mg/dL (8.5-10.1); CREATININE 1.1 mg/dL (0.7-1.3); GFR 66.2; MAGNESIUM 2.1 mg/dL (1.8-2.4); POTASSIUM 3.8 mmol/L (3.5-5.1)
[2021-01-07 08:41] LABS: BASO % 0 % (0-3); EOS % 0 % (0-3); HEMATOCRIT 42.1 % (39.0-53.0); HEMOGLOBIN 14.4 g/dL (13.0-17.5); LYMPH # 0.4 x10^3/uL (1.0-4.8); LYMPH % 3 % (24-48); MEAN CORPUSCULAR HEMOGLOBIN 33 pg (25-35); MEAN CORPUSCULAR HGB CONC 34 g/dL (31-37); MEAN CORPUSCULAR VOLUME 97 fL (79-100); MONO # 1.2 x10^3/uL (0.0-1.1); MONO % 7 % (0-9); NEUT # 14.3 x10^3/uL (1.8-7.7); NEUT % 90 % (31-73); PLATELET COUNT 204 x10^3/uL (140-400); RED BLOOD COUNT 4.34 x10^6/uL (4.30-5.70); RED CELL DISTRIBUTION WIDTH 12.8 % (11.5-14.5); WHITE BLOOD COUNT 15.9 x10^3/uL (4.0-11.0)
[2021-01-07] MEDS: LORazepam 0.5 MG TABLET PO PRN (09:26)
[2021-01-07] MEDS: PANTOPRAZOLE IV PUSH 40 MG VIAL. IVP SCH (09:26)
[2021-01-07] MEDS: FLUTICASONE 50MCG/NASAL SPRAY 16GM BOTTLE. NS SCH (09:26)
[2021-01-07] MEDS: LACTOBACILLUS RHAMNOSUS GG 1 CAPSULE. PO SCH ×2 (09:26→21:02)
[2021-01-07] MEDS: APIXABAN 5 MG TABLET. PO SCH ×2 (09:26→21:02)
[2021-01-07] MEDS: METOPROLOL SUCC 24HR ER 50 MG TAB.ER.24H. PO SCH (09:27)
[2021-01-07] MEDS: SIMETHICONE 80 MG TAB.CHEW PO PRN ×2 (09:27→21:02)
[2021-01-07] MEDS: ASPIRIN ENTERIC COATED 81 MG TABLET.DR. PO SCH (09:27)
--- NOTE | 2021-01-07 10:51 | PDOC ---
[facility] PROGRESS NOTE Date of Service DOS: DATE: 01/07/21 TIME: 10:49 Chief Complaint Chief Complaint Assessment/Plan Acute pancreatitis Acute ABD pain secondary to acute pancreatitis and acute electrolyte derrangements mentioned below Severe hypokalemia Severe Hypocalcemia hx of HTN Hx of DLD Hx of SVT Bacterial pneumonia likely gram-negative IV electrolyte replacement Continue aggressive IV fluid replacement IV pain control N.p.o. with oral meds okay Unasyn and azithromycin started. Telemetry monitoring Every 4 hour chemistry trend Lovenox for DVT prophylaxis Protonix GI prophylaxis ADA diet CODE STATUS full Discussed with RN and SW Disposition ICU management DPOA: History of Present Illness History of Present Illness 70-year-old male with past medical history of hypertension, dyslipidemia who comes in with diffuse abdominal pain associated with nausea vomiting. Patient had a colonoscopy on Saturday this week and since that time he has had abdominal pain that is progressively gotten worse. Pain is 7 out of 10 and mainly in his mid abdomen and radiates downwards. Colonoscopy in the past has been uneventful. Unsure of his had any biopsy done. Denies fevers, chest pain, diarrhea, shortness of breath or dysuria 01/05 Patient evaluated examined at bedside. He was doing well resting in bed. Says abdominal pain is still present but improving. Do see mention of pneumonia on CT scan will order chest x-ray for further evaluation. Continue treatment of pancreatitis. Okay to transfer out of ICU. Electrolyte abnormalities have improved. 01/06 Patient evaluated examined at bedside. He was up in the chair complaining of crampy abdominal pain particularly in his midepigastrium. He had just received morphine and Zofran before entering the room. Recommended he also try GI cocktail. Given ongoing pain will consult GI as no apparent cause of his pancreatitis from my standpoint. Okay still to transfer out of ICU. 01/07/2021 No acute events overnight. Patient seen and examined bedside. Continues to have some nausea vomiting with diet. Will attempt sips with meds. Has not gotten out of bed and feels fatigued. Ordered PT OT for evaluation. Started on intramuscular Bentyl. Continue with IV n.p.o. pain control. Continue with IV fluids and IV antibiotics. Blood cultures negative today. Patient's chart, labs, images were reviewed and discussed with RN Vitals/I&O Vitals/I&O: Vital Signs Date Time Temp Pulse Resp B/P (MAP) Pulse Ox O2 Delivery O2 Flow Rate FiO2 01/07/21 09:27 85 136/73 01/07/21 08:15 Room Air 01/07/21 07:00 97.3 18 92 97.3 01/06/21 20:10 2.0 I & O 01/06/21 01/06/21 01/07/21 15:00 23:00 07:00 Intake Total 460 ml 610 ml 120 ml Balance 460 ml 610 ml 120 ml Physical Exam General: Alert, Oriented X3, Cooperative Heart: Regular rate, Normal S1, Normal S2 Lungs: Clear Abdomen: Other (Diffusely tender) Extremities: No edema, Normal pulses Skin: No significant lesion Labs Labs: Laboratory Tests Test 01/07/21 07:30 White Blood Count 15.9 x10^3/uL (4.0-11.0) Red Blood Count 4.34 x10^6/uL (4.30-5.70) Hemoglobin 14.4 g/dL (13.0-17.5) Hematocrit 42.1 % (39.0-53.0) Mean Corpuscular Volume 97 fL (79-100) Mean Corpuscular Hemoglobin 33 pg (25-35) Mean Corpuscular Hemoglobin Concent 34 g/dL (31-37) Red Cell Distribution Width 12.8 % (11.5-14.5) Platelet Count 204 x10^3/uL (140-400) Neutrophils (%) (Auto) 90 % (31-73) Lymphocytes (%) (Auto) 3 % (24-48) Monocytes (%) (Auto) 7 % (0-9) Eosinophils (%) (Auto) 0 % (0-3) Basophils (%) (Auto) 0 % (0-3) Neutrophils # (Auto) 14.3 x10^3/uL (1.8-7.7) Lymphocytes # (Auto) 0.4 x10^3/uL (1.0-4.8) Monocytes # (Auto) 1.2 x10^3/uL (0.0-1.1) Eosinophils # (Auto) 0.0 x10^3/uL (0.0-0.7) Basophils # (Auto) 0.0 x10^3/uL (0.0-0.2) Sodium Level 137 mmol/L (136-145) Potassium Level 3.8 mmol/L (3.5-5.1) Chloride Level 101 mmol/L (98-107) Carbon Dioxide Level 27 mmol/L (21-32) Anion Gap 9 (6-14) Blood Urea Nitrogen 18 mg/dL (8-26) Creatinine 1.1 mg/dL (0.7-1.3) Estimated GFR (Cockcroft-Gault) 66.2 Glucose Level 119 mg/dL (70-99) Calcium Level 7.8 mg/dL (8.5-10.1) Magnesium Level 2.1 mg/dL (1.8-2.4) Assessment and Plan Assessmemt and Plan Problems Medical Problems: (1) Abdominal pain Status: Acute (2) Hypocalcemia Status: Acute (3) Hypokalemia Status: Acute (4) Pancreatitis, acute Status: Acute (5) Person under investigation for COVID-19 Status: Acute (6) Pneumonia Status: Acute Comment Review of Relevant I have reviewed the following items damian (where applicable) has been applied. Medications: Current Medications Medications (Trade) Dose Ordered Sig/Kerry Route PRN Reason Start Time Stop Time Status Last Admin Dose Admin Lactobacillus Rhamnosus (Culturelle) 1 cap BID PO 01/06/21 21:00 01/07/21 09:26 Multi-Ingredient Mouthwash/Gargle (Gi Cocktail) 20 ml PRN QID PRN PO CHEST PAIN 01/06/21 11:00 01/07/21 09:27 Pantoprazole Sodium (PROTONIX VIAL for IV PUSH) 40 mg DAILYAC IVP 01/06/21 13:30 01/07/21 09:26 Dextrose/Lactated Ringer's 1,000 ml @ 80 mls/hr [id number] IV 01/06/21 16:15 01/07/21 03:56 Metoprolol Succinate (Toprol Xl) 50 mg DAILY PO 01/07/21 09:00 01/07/21 09:27 Justifications for Admission Other Justification ABD pain due to hypocalcemia JALEN ZAMUDIO MD Jan 07, 2021 10:50
--- NOTE | 2021-01-07 11:58 | PDOC ---
G I PROGRESS NOTE Subjective Feels some better; still uncomfortable. Physical Exam Lungs clear anteriorly. RRR Abdomen soft with epigastric tenderness. Review of Relevant I have reviewed the following items damian (where applicable) has been applied. Labs Laboratory Tests Test 01/06/21 04:05 01/07/21 07:30 White Blood Count 17.4 x10^3/uL (4.0-11.0) 15.9 x10^3/uL (4.0-11.0) Red Blood Count 4.49 x10^6/uL (4.30-5.70) 4.34 x10^6/uL (4.30-5.70) Hemoglobin 15.0 g/dL (13.0-17.5) 14.4 g/dL (13.0-17.5) Hematocrit 43.6 % (39.0-53.0) 42.1 % (39.0-53.0) Mean Corpuscular Volume 97 fL (79-100) 97 fL (79-100) Mean Corpuscular Hemoglobin 33 pg (25-35) 33 pg (25-35) Mean Corpuscular Hemoglobin Concent 34 g/dL (31-37) 34 g/dL (31-37) Red Cell Distribution Width 13.0 % (11.5-14.5) 12.8 % (11.5-14.5) Platelet Count 205 x10^3/uL (140-400) 204 x10^3/uL (140-400) Neutrophils (%) (Auto) 87 % (31-73) 90 % (31-73) Lymphocytes (%) (Auto) 5 % (24-48) 3 % (24-48) Monocytes (%) (Auto) 8 % (0-9) 7 % (0-9) Eosinophils (%) (Auto) 0 % (0-3) 0 % (0-3) Basophils (%) (Auto) 0 % (0-3) 0 % (0-3) Neutrophils # (Auto) 15.1 x10^3/uL (1.8-7.7) 14.3 x10^3/uL (1.8-7.7) Lymphocytes # (Auto) 0.8 x10^3/uL (1.0-4.8) 0.4 x10^3/uL (1.0-4.8) Monocytes # (Auto) 1.4 x10^3/uL (0.0-1.1) 1.2 x10^3/uL (0.0-1.1) Eosinophils # (Auto) 0.0 x10^3/uL (0.0-0.7) 0.0 x10^3/uL (0.0-0.7) Basophils # (Auto) 0.0 x10^3/uL (0.0-0.2) 0.0 x10^3/uL (0.0-0.2) Segmented Neutrophils % 88 % (35-66) Band Neutrophils % 6 % (0-9) Lymphocytes % 2 % (24-48) Monocytes % 4 % (0-10) Platelet Estimate Adequate (ADEQUATE) Sodium Level 135 mmol/L (136-145) 137 mmol/L (136-145) Potassium Level 4.0 mmol/L (3.5-5.1) 3.8 mmol/L (3.5-5.1) Chloride Level 102 mmol/L (98-107) 101 mmol/L (98-107) Carbon Dioxide Level 24 mmol/L (21-32) 27 mmol/L (21-32) Anion Gap 9 (6-14) 9 (6-14) Blood Urea Nitrogen 17 mg/dL (8-26) 18 mg/dL (8-26) Creatinine 1.0 mg/dL (0.7-1.3) 1.1 mg/dL (0.7-1.3) Estimated GFR (Cockcroft-Gault) 73.9 66.2 Glucose Level 94 mg/dL (70-99) 119 mg/dL (70-99) Calcium Level 7.5 mg/dL (8.5-10.1) 7.8 mg/dL (8.5-10.1) Magnesium Level 2.1 mg/dL (1.8-2.4) 2.1 mg/dL (1.8-2.4) Laboratory Tests Test 01/07/21 07:30 White Blood Count 15.9 x10^3/uL (4.0-11.0) Red Blood Count 4.34 x10^6/uL (4.30-5.70) Hemoglobin 14.4 g/dL (13.0-17.5) Hematocrit 42.1 % (39.0-53.0) Mean Corpuscular Volume 97 fL (79-100) Mean Corpuscular Hemoglobin 33 pg (25-35) Mean Corpuscular Hemoglobin Concent 34 g/dL (31-37) Red Cell Distribution Width 12.8 % (11.5-14.5) Platelet Count 204 x10^3/uL (140-400) Neutrophils (%) (Auto) 90 % (31-73) Lymphocytes (%) (Auto) 3 % (24-48) Monocytes (%) (Auto) 7 % (0-9) Eosinophils (%) (Auto) 0 % (0-3) Basophils (%) (Auto) 0 % (0-3) Neutrophils # (Auto) 14.3 x10^3/uL (1.8-7.7) Lymphocytes # (Auto) 0.4 x10^3/uL (1.0-4.8) Monocytes # (Auto) 1.2 x10^3/uL (0.0-1.1) Eosinophils # (Auto) 0.0 x10^3/uL (0.0-0.7) Basophils # (Auto) 0.0 x10^3/uL (0.0-0.2) Sodium Level 137 mmol/L (136-145) Potassium Level 3.8 mmol/L (3.5-5.1) Chloride Level 101 mmol/L (98-107) Carbon Dioxide Level 27 mmol/L (21-32) Anion Gap 9 (6-14) Blood Urea Nitrogen 18 mg/dL (8-26) Creatinine 1.1 mg/dL (0.7-1.3) Estimated GFR (Cockcroft-Gault) 66.2 Glucose Level 119 mg/dL (70-99) Calcium Level 7.8 mg/dL (8.5-10.1) Magnesium Level 2.1 mg/dL (1.8-2.4) Microbiology 01/04/21 Blood Culture - Preliminary, Resulted NO GROWTH AFTER 2 DAYS Vitals/I & O Vital Sign - Last 24 Hours 01/06/21 01/06/21 01/06/21 01/06/21 15:00 15:09 15:39 20:10 Temp 99.4 99.4 Pulse 64 Resp 22 19 20 B/P (MAP) 112/68 (83) Pulse Ox 94 91 91 O2 Delivery Nasal Cannula Nasal Cannula Room Air Nasal Cannula O2 Flow Rate 2.0 2.0 2.0 2.0 01/06/21 01/07/21 01/07/21 01/07/21 23:00 03:00 07:00 08:15 Temp 99.4 99.5 97.3 99.4 99.5 97.3 Pulse 52 76 85 Resp 16 20 18 B/P (MAP) 130/71 (90) 127/71 (89) 136/73 (94) Pulse Ox 89 92 92 O2 Delivery Room Air Room Air Room Air Room Air 01/07/21 09:27 Pulse 85 B/P (MAP) 136/73 Intake and Output 01/06/21 01/06/21 01/07/21 15:00 23:00 07:00 Intake Total 460 ml 610 ml 120 ml Balance 460 ml 610 ml 120 ml Problem List Problems Medical Problems: (1) Abdominal pain Status: Acute (2) Hypocalcemia Status: Acute (3) Hypokalemia Status: Acute (4) Pancreatitis, acute Status: Acute (5) Person under investigation for COVID-19 Status: Acute (6) Pneumonia Status: Acute Assessment Acute pancreatitis; from propofol? Has been described in the literature. Some better but by no means perfect or ready to feed. Plan of Care Note Continue as now. Recheck lipase. Justicifation of Admission Dx: Justifications for Admission: Justification of Admission Dx: No DARELL DEY MD Jan 07, 2021 11:58
[2021-01-07] MEDS: AZITHROMYCIN 500 MG in IV NORMAL SALINE 250ML 250 ML IV SCH (13:09)
[2021-01-07 15:00] VITALS: BP 131/73
[2021-01-07] MEDS: DICYCLOMINE HCL 10 MG CAPSULE PO PRN (15:29)
[2021-01-07 19:00] VITALS: BP 143/78
[2021-01-07] MEDS: traZODone 100 MG TABLET. PO SCH (21:02)
[2021-01-07] MEDS: SIMVASTATIN 20 MG TABLET PO SCH (21:02)
[2021-01-07] MEDS: ZOLPIDEM 5 MG TABLET. PO PRN (21:02)
[2021-01-08] MEDS: LIDO:MAALOX 1:1 20 ML SINGLE DOSE. PO PRN (02:15)
[2021-01-08] MEDS: AMPICILLIN/SULBACTAM 3 GM in IV NORMAL SALINE 100ML 100 ML IV SCH ×4 (06:09→23:30)
[2021-01-08 07:00] VITALS: BP 166/78
[2021-01-08] MEDS: LACTOBACILLUS RHAMNOSUS GG 1 CAPSULE. PO SCH ×2 (08:40→21:36)
[2021-01-08] MEDS: PANTOPRAZOLE IV PUSH 40 MG VIAL. IVP SCH (08:40)
[2021-01-08] MEDS: SIMETHICONE 80 MG TAB.CHEW PO PRN ×2 (08:40→16:44)
[2021-01-08] MEDS: ASPIRIN ENTERIC COATED 81 MG TABLET.DR. PO SCH (08:40)
[2021-01-08] MEDS: FLUTICASONE 50MCG/NASAL SPRAY 16GM BOTTLE. NS SCH (08:41)
[2021-01-08] MEDS: APIXABAN 5 MG TABLET. PO SCH ×2 (08:46→21:36)
[2021-01-08] MEDS: METOPROLOL SUCC 24HR ER 50 MG TAB.ER.24H. PO SCH (08:48)
[2021-01-08] MEDS: IV DEXTROSE 5%-LACT RINGERS 1,000 ML IV SCH (08:59)
[2021-01-08 11:00] VITALS: BP 133/76
[2021-01-08] MEDS: MORPHINE SULFATE 2 MG/ML INJ. IV PRN (11:42)
--- NOTE | 2021-01-08 12:32 | PDOC ---
G I PROGRESS NOTE Subjective Tried clears-->more pain. Thinks maybe stooling would help. Physical Exam Lungs clear anteriorly. RRR Abdomen soft, tender in epigastrium. Review of Relevant I have reviewed the following items damian (where applicable) has been applied. Labs Laboratory Tests Test 01/07/21 07:30 01/08/21 06:35 White Blood Count 15.9 x10^3/uL (4.0-11.0) Red Blood Count 4.34 x10^6/uL (4.30-5.70) Hemoglobin 14.4 g/dL (13.0-17.5) Hematocrit 42.1 % (39.0-53.0) Mean Corpuscular Volume 97 fL (79-100) Mean Corpuscular Hemoglobin 33 pg (25-35) Mean Corpuscular Hemoglobin Concent 34 g/dL (31-37) Red Cell Distribution Width 12.8 % (11.5-14.5) Platelet Count 204 x10^3/uL (140-400) Neutrophils (%) (Auto) 90 % (31-73) Lymphocytes (%) (Auto) 3 % (24-48) Monocytes (%) (Auto) 7 % (0-9) Eosinophils (%) (Auto) 0 % (0-3) Basophils (%) (Auto) 0 % (0-3) Neutrophils # (Auto) 14.3 x10^3/uL (1.8-7.7) Lymphocytes # (Auto) 0.4 x10^3/uL (1.0-4.8) Monocytes # (Auto) 1.2 x10^3/uL (0.0-1.1) Eosinophils # (Auto) 0.0 x10^3/uL (0.0-0.7) Basophils # (Auto) 0.0 x10^3/uL (0.0-0.2) Sodium Level 137 mmol/L (136-145) Potassium Level 3.8 mmol/L (3.5-5.1) Chloride Level 101 mmol/L (98-107) Carbon Dioxide Level 27 mmol/L (21-32) Anion Gap 9 (6-14) Blood Urea Nitrogen 18 mg/dL (8-26) Creatinine 1.1 mg/dL (0.7-1.3) Estimated GFR (Cockcroft-Gault) 66.2 Glucose Level 119 mg/dL (70-99) Calcium Level 7.8 mg/dL (8.5-10.1) Magnesium Level 2.1 mg/dL (1.8-2.4) Lipase 107 U/L (73-393) Laboratory Tests Test 01/08/21 06:35 Lipase 107 U/L (73-393) Microbiology 01/04/21 Blood Culture - Preliminary, Resulted NO GROWTH AFTER 3 DAYS Lipase now normal. Vitals/I & O Vital Sign - Last 24 Hours 01/07/21 01/07/21 01/07/21 01/08/21 15:00 19:00 19:20 07:00 Temp 98.8 98.3 98.6 98.8 98.3 98.6 Pulse 76 79 96 Resp 22 20 20 B/P (MAP) 131/73 (92) 143/78 (99) 166/78 (107) Pulse Ox 94 91 92 O2 Delivery Room Air Room Air Room Air Room Air O2 Flow Rate 2.0 01/08/21 01/08/21 01/08/21 08:00 08:48 11:42 Pulse 71 Resp 22 B/P (MAP) 156/78 Pulse Ox 92 O2 Delivery Nasal Cannula Room Air O2 Flow Rate 2.0 2.0 Intake and Output 01/07/21 01/07/21 01/08/21 15:00 23:00 07:00 Intake Total 120 ml Output Total 0 ml Balance 120 ml 0 ml Problem List Problems Medical Problems: (1) Abdominal pain Status: Acute (2) Hypocalcemia Status: Acute (3) Hypokalemia Status: Acute (4) Pancreatitis, acute Status: Acute (5) Person under investigation for COVID-19 Status: Acute (6) Pneumonia Status: Acute Assessment Pancreatitis, assume from propofol as no other cause evident. Would not favor re-challenge. Now 4 days NPO. Plan of Care Note Continue as now. Don't force diet. If not eating in 2-3 days may need TPN. Justicifation of Admission Dx: Justifications for Admission: Justification of Admission Dx: No DARELL DEY MD Jan 08, 2021 12:32
--- NOTE | 2021-01-08 12:36 | PDOC ---
[facility] PROGRESS NOTE Date of Service DOS: DATE: 01/08/21 TIME: 12:33 Chief Complaint Chief Complaint Acute pancreatitis Acute ABD pain secondary to acute pancreatitis and acute electrolyte derrangements mentioned below Severe hypokalemia Severe Hypocalcemia hx of HTN Hx of DLD Hx of SVT Bacterial pneumonia likely gram-negative History of Present Illness History of Present Illness 01/08/2021 Patient seen exam Discussed with RN Chart reviewed 70-year-old male with past medical history of hypertension, dyslipidemia who comes in with diffuse abdominal pain associated with nausea vomiting. Patient had a colonoscopy on Saturday this week and since that time he has had abdominal pain that is progressively gotten worse. Pain is 7 out of 10 and mainly in his mid abdomen and radiates downwards. Colonoscopy in the past has been uneventful. Unsure of his had any biopsy done. Denies fevers, chest pain, diarrhea, shortness of breath or dysuria 01/05 Patient evaluated examined at bedside. He was doing well resting in bed. Says abdominal pain is still present but improving. Do see mention of pneumonia on CT scan will order chest x-ray for further evaluation. Continue treatment of pancreatitis. Okay to transfer out of ICU. Electrolyte abnormalities have improved. 01/06 Patient evaluated examined at bedside. He was up in the chair complaining of crampy abdominal pain particularly in his midepigastrium. He had just received morphine and Zofran before entering the room. Recommended he also try GI cocktail. Given ongoing pain will consult GI as no apparent cause of his pancreatitis from my standpoint. Okay still to transfer out of ICU. 01/07/2021 No acute events overnight. Patient seen and examined bedside. Continues to have some nausea vomiting with diet. Will attempt sips with meds. Has not gotten out of bed and feels fatigued. Ordered PT OT for evaluation. Started on intramuscular Bentyl. Continue with IV n.p.o. pain control. Continue with IV fluids and IV antibiotics. Blood cultures negative today. Patient's chart, labs, images were reviewed and discussed with RN Vitals/I&O Vitals/I&O: Vital Signs Date Time Temp Pulse Resp B/P (MAP) Pulse Ox O2 Delivery O2 Flow Rate FiO2 01/08/21 11:42 22 92 Room Air 2.0 01/08/21 08:48 71 156/78 01/08/21 07:00 98.6 98.6 I & O 01/07/21 01/07/21 01/08/21 15:00 23:00 07:00 Intake Total 120 ml Output Total 0 ml Balance 120 ml 0 ml Physical Exam General: Alert, Oriented X3, Cooperative Heart: Regular rate, Normal S1, Normal S2 Lungs: Clear Abdomen: Other (Diffusely tender) Extremities: No edema, Normal pulses Skin: No significant lesion Labs Labs: Laboratory Tests Test 01/08/21 06:35 Lipase 107 U/L (73-393) Assessment and Plan Assessmemt and Plan Problems Medical Problems: (1) Abdominal pain Status: Acute (2) Hypocalcemia Status: Acute (3) Hypokalemia Status: Acute (4) Pancreatitis, acute Status: Acute (5) Person under investigation for COVID-19 Status: Acute (6) Pneumonia Status: Acut Acute pancreatitis (possibly secondary to propofol during his colonoscopy last Saturday) Acute ABD pain secondary to acute pancreatitis and acute electrolyte derrangements mentioned below Severe hypokalemia Severe Hypocalcemia hx of HTN Hx of DLD Hx of SVT Bacterial pneumonia likely gram-negative IV fluids Trend labs Appreciate GI input IV pain control N.p.o. with oral meds okay Unasyn and azithromycin started. Telemetry monitoring Lovenox for DVT prophylaxis Protonix GI prophylaxis ADA diet CODE STATUS full Discussed with RN Disposition ICU management DPOA: Per GI please see the following recommendations and we certainly agree and appre ciate their input; Pancreatitis, assume from propofol as no other cause evident. Would not favor re-challenge. Now 4 days NPO. Plan of Care Note Continue as now. Don't force diet. If not eating in 2-3 days may need TPN. Comment Review of Relevant I have reviewed the following items damian (where applicable) has been applied. Justifications for Admission Other Justification ABD pain due to hypocalcemia GISELL FLANNERY III DO Jan 08, 2021 12:36
[2021-01-08 15:00] VITALS: BP 104/76
[2021-01-08] MEDS ORDERED: BISACODYL 10 MG SUPP.RECT. PR PRN (15:30)
[2021-01-08] MEDS: LORazepam 0.5 MG TABLET PO PRN ×2 (16:34→21:36)
--- NOTE | 2021-01-08 16:52 | NUR ---
Nurse's note: The patient still complains of intermittent sharp abdominal pain 5-6/10 accompanied by bloating and inability to pass stools. PRN pain medicine given and 1 dose of suppository administered for constipation. He is independent and ambulates without assistance. The patient's family member is currently at the bedside.
[2021-01-08] MEDS ORDERED: DIGOXIN IV 500 MCG/2 ML AMPUL. IV ONE ×2 (18:15→21:30)
--- NOTE | 2021-01-08 18:49 | NUR ---
Nurse's note: The patient complained of palpitations and chest pain after going to the bathroom. He expressed that his heart is racing. Afib with RVR noted on the shelter monitor, BP 128/63 HR 130 RR 22 O2 sat 93%. Paged Dr. Florian, new orders received. Consult to Dr. Mendoza was sent. IV digoxin given as 1 dose, we'll continue to monitor.
[2021-01-08 19:00] VITALS: BP 121/86
[2021-01-08] MEDS: SIMVASTATIN 20 MG TABLET PO SCH (21:00)
[2021-01-08] MEDS: traZODone 100 MG TABLET. PO SCH (21:36)
[2021-01-08] MEDS: ZOLPIDEM 5 MG TABLET. PO PRN (21:36)
[2021-01-08] MEDS: DICYCLOMINE HCL 10 MG CAPSULE PO PRN (21:37)
[2021-01-08 23:00] VITALS: BP 115/61
[2021-01-09 03:06] VITALS: BP 138/73
[2021-01-09] MEDS: AMPICILLIN/SULBACTAM 3 GM in IV NORMAL SALINE 100ML 100 ML IV SCH ×4 (05:20→23:20)
[2021-01-09 07:00] VITALS: BP 119/63
[2021-01-09] MEDS: FLUTICASONE 50MCG/NASAL SPRAY 16GM BOTTLE. NS SCH (08:00)
[2021-01-09] MEDS: PANTOPRAZOLE IV PUSH 40 MG VIAL. IVP SCH (08:00)
[2021-01-09] MEDS: LIDO:MAALOX 1:1 20 ML SINGLE DOSE. PO PRN (08:00)
[2021-01-09] MEDS: APIXABAN 5 MG TABLET. PO SCH ×2 (08:01→20:28)
[2021-01-09] MEDS: IV DEXTROSE 5%-LACT RINGERS 1,000 ML IV SCH ×2 (08:01→19:15)
[2021-01-09] MEDS: ASPIRIN ENTERIC COATED 81 MG TABLET.DR. PO SCH (08:01)
[2021-01-09] MEDS: AMIODARONE HCL 200 MG TABLET. PO SCH (08:02)
[2021-01-09] MEDS: LACTOBACILLUS RHAMNOSUS GG 1 CAPSULE. PO SCH ×2 (08:02→20:28)
[2021-01-09] MEDS: METOPROLOL SUCC 24HR ER 50 MG TAB.ER.24H. PO SCH (08:03)
[2021-01-09] MEDS: FUROSEMIDE 40 MG TABLET. PO SCH (08:06)
--- NOTE | 2021-01-09 09:49 | PDOC ---
Date of Service: DATE: 01/09/21 TIME: 09:42 Subjective: Subjective: Generally feels better in the mornings and worse as day wears on - does think maybe some slow improvement. Took suppository yesterday - passed hard stools, passing gas intermittently - this might have helped lower abdominal pain. Mylanta has helped upper abdominal discomfort. Taking some clears - best in morning, less as day goes on. reports some wheezing yesterday w/ productive cough - wonders if pneumonia resolving. Objective: Objective: Reviewed chart - A Fib issues last evening - cardiology asked to see. Vital Signs: Vital Signs Date Time Temp Pulse Resp B/P (MAP) Pulse Ox O2 Delivery O2 Flow Rate FiO2 01/09/21 08:03 93 119/63 01/09/21 07:00 98.6 20 91 Room Air 98.6 01/08/21 12:15 2.0 Imaging: Abd US 01/06 FINDINGS: The pancreas and abdominal aorta and IVC are poorly visualized due to overlying bowel gas. The liver measures 17.4 cm in length which is normal. No hepatic mass is seen. The gallbladder is normal and no gallstones are seen. The extra hepatic bile duct measures 6 mm in caliber which is normal. The length of the right kidney is 11.0 cm. No hydronephrosis or renal mass or perinephric fluid collection is seen on this side. There is a small amount of free fluid along the inferior edge of the liver. IMPRESSION: Small amount of free fluid. No gallstones are seen within the gallbladder. PE: GEN: NAD - supportive present LUNGS: clear anteriorly, productive cough - spits dark yellow-brown phlegm into basin HEART: irregularly irregular ABD: BS+, some distention, lower abdominal discomfort NEURO/PSYCH: A & O 3, pleasant and cooperative A/P: Pancreatitis - ?possibly related to propofol? Leukocytosis A Fib COVID negative -- Advance diet when taking clear liquids reliably. May need to consider TPN. Recheck labs. 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 Justicifation of Admission Dx: Justifications for Admission: Justification of Admission Dx: No SHIN-SHAHEED MILLAN Jan 09, 2021 09:49
[2021-01-09 10:37] LABS: HEMATOCRIT 35.3 % (39.0-53.0); HEMOGLOBIN 12.4 g/dL (13.0-17.5); RED BLOOD COUNT 3.67 x10^6/uL (4.30-5.70); RED CELL DISTRIBUTION WIDTH 12.6 % (11.5-14.5); WHITE BLOOD COUNT 14.3 x10^3/uL (4.0-11.0)
--- NOTE | 2021-01-09 10:48 | PDOC ---
[employer] PROGRESS NOTE Date of Service DOS: DATE: 01/09/21 TIME: 10:43 Chief Complaint Chief Complaint Acute pancreatitis Acute ABD pain secondary to acute pancreatitis and acute electrolyte derrangements mentioned below Severe hypokalemia Severe Hypocalcemia hx of HTN Hx of DLD Hx of SVT Bacterial pneumonia likely gram-negative History of Present Illness History of Present Illness 01/09/2021 Patient seen and examined His rate control is better this morning with the half milligram of digoxin and resumption of his amiodarone this morning( ranging from 80-110) I discussed the case with his Jarocho she seems to be good support for him Discussed with RN Chart reviewed Patient tolerating clear liquid diet His legs are less swollen with the addition of his Lasix Overall doing better 01/08/2021 Patient seen exam Discussed with RN Chart reviewed 70-year-old male with past medical history of hypertension, dyslipidemia who comes in with diffuse abdominal pain associated with nausea vomiting. Patient had a colonoscopy on Saturday this week and since that time he has had abdominal pain that is progressively gotten worse. Pain is 7 out of 10 and mainly in his mid abdomen and radiates downwards. Colonoscopy in the past has been uneventful. Unsure of his had any biopsy done. Denies fevers, chest pain, diarrhea, shortness of breath or dysuria 01/05 Patient evaluated examined at bedside. He was doing well resting in bed. Says abdominal pain is still present but improving. Do see mention of pneumonia on CT scan will order chest x-ray for further evaluation. Continue treatment of pancreatitis. Okay to transfer out of ICU. Electrolyte abnormalities have improved. 01/06 Patient evaluated examined at bedside. He was up in the chair complaining of crampy abdominal pain particularly in his midepigastrium. He had just received morphine and Zofran before entering the room. Recommended he also try GI cocktail. Given ongoing pain will consult GI as no apparent cause of his pancreatitis from my standpoint. Okay still to transfer out of ICU. 01/07/2021 No acute events overnight. Patient seen and examined bedside. Continues to have some nausea vomiting with diet. Will attempt sips with meds. Has not gotten out of bed and feels fatigued. Ordered PT OT for evaluation. Started on intramuscular Bentyl. Continue with IV n.p.o. pain control. Continue with IV fluids and IV antibiotics. Blood cultures negative today. Patient's chart, labs, images were reviewed and discussed with RN Vitals/I&O Vitals/I&O: Vital Signs Date Time Temp Pulse Resp B/P (MAP) Pulse Ox O2 Delivery O2 Flow Rate FiO2 01/09/21 08:03 93 119/63 01/09/21 07:00 98.6 20 91 Room Air 98.6 01/08/21 12:15 2.0 I & O 01/08/21 01/08/21 01/09/21 15:00 23:00 07:00 Intake Total 120 ml Output Total 1 ml 0 ml Balance 119 ml 0 ml Physical Exam General: Alert, Oriented X3, Cooperative Heart: Other (Distant S1-S2 with A. fib on the monitor) Lungs: Clear Abdomen: Other (Diffusely tender) Extremities: No edema, Normal pulses Skin: No significant lesion Assessment and Plan Assessmemt and Plan Problems Medical Problems: (1) Abdominal pain Status: Acute (2) Hypocalcemia Status: Acute (3) Hypokalemia Status: Acute (4) Pancreatitis, acute Status: Acute (5) Person under investigation for COVID-19 Status: Acute (6) Pneumonia Status: Acute Acute pancreatitis (possibly secondary to propofol during his colonoscopy last Saturday) Acute ABD pain secondary to acute pancreatitis and acute electrolyte derrangements mentioned below Severe hypokalemia Severe Hypocalcemia A. fib hx of HTN Hx of DLD Hx of SVT Bacterial pneumonia likely gram-negative Plan Appreciate cardiology input Continue negative chronotropic agents with metoprolol digoxin amiodarone IV fluids Recheck lab Appreciate GI input IV pain control Clear liquid diet Continue IV Unasyn Telemetry monitoring Lovenox for DVT prophylaxis Protonix GI prophylaxis ADA diet CODE STATUS full Discussed with RN Disposition ICU management DPOA: Jarocho Comment Review of Relevant I have reviewed the following items damian (where applicable) has been applied. Medications: Current Medications Medications (Trade) Dose Ordered Sig/Kerry Route PRN Reason Start Time Stop Time Status Last Admin Dose Admin Bisacodyl (Dulcolax Supp) 10 mg PRN DAILY PRN [place] CONSTIPATION 01/08/21 15:30 01/08/21 16:39 Digoxin (Lanoxin) 500 mcg 1X ONCE IV 01/08/21 18:15 01/08/21 18:26 DC 01/08/21 18:20 Amiodarone HCl (Cordarone) 200 mg DAILY PO 01/09/21 09:00 01/09/21 08:02 Furosemide (Lasix) 40 mg DAILY PO 01/09/21 09:00 01/09/21 08:06 Digoxin (Lanoxin) 250 mcg 1X ONCE IV 01/08/21 21:30 01/08/21 21:32 DC 01/08/21 21:12 Justifications for Admission Other Justification ABD pain due to hypocalcemia GISELL FLANNERY III DO Jan 09, 2021 10:48
[2021-01-09 11:00] VITALS: BP 119/75
[2021-01-09 11:02] LABS: ALBUMIN 1.8 g/dL (3.4-5.0); ALBUMIN/GLOBULIN RATIO 0.4 (1.0-1.7); CALCIUM 7.8 mg/dL (8.5-10.1); CREATININE 0.8 mg/dL (0.7-1.3); GFR 95.6; POTASSIUM 3.1 mmol/L (3.5-5.1); TOTAL BILIRUBIN 0.6 mg/dL (0.2-1.0); TOTAL PROTEIN 6.1 g/dL (6.4-8.2)
[2021-01-09] MEDS ORDERED: POTASSIUM CHLORIDE 20 MEQ TABLET.ER. PO ONE ×2 (12:15→15:30)
--- NOTE | 2021-01-09 12:15 | PDOC2 ---
PAPITO WARREN ENTERPRISE SYSTEMS ENGINEER 01/09/21 1215: CARDIAC CONSULT DATE OF CONSULT Date of Consult DATE: 01/09/21 TIME: 12:07 REASON FOR CONSULT Reason for Consult: AFIB with RVR REFERRING PHYSICIAN Referring Physician: Dr. Florian SOURCE Source: Chart review, Patient HISTORY OF PRESENT ILLNESS HISTORY OF PRESENT ILLNESS This is a 70 yo male who presented secondary to abdominal pain and nausea/vomiting. Patient had underwent colonoscopy last week and had been recovering without any acute complications. Later in the week, he developed dull aching in his abdomen and then developed nausea and vomiting. Ct abdomen with evidence of acute pancreatitis. Was NPO for rest. Patient has a history of PAFIB. Unfortunately, he had been without amiodarone and metoprolol as he was NPO and went into AFIB with RVR last night. Medications were resumed and he received IV Digoxin x2 does. Is presently AFIB, but rate is mostly controlled. He denies any dizziness, diaphoresis, or chest pain. Does report some mild shortness of breath and is audibly wheezing. PAST MEDICAL HISTORY Cardiovascular: AFIB (s/p ablation ), CHF, HTN Pulmonary: Other (PAT) Musculoskeletal: Osteoarthritis PAST SURGICAL HISTORY Past Surgical History: Tonsillectomy FAMILY HISTORY Family History: Hypertension SOCIAL HISTORY Smoke: Quit ALCOHOL: rare Drugs: None Lives: with Family CURRENT MEDICATIONS CURRENT MEDICATIONS Current Medications Medications (Trade) Dose Ordered Sig/Kerry Route PRN Reason Start Time Stop Time Status Last Admin Dose Admin Bisacodyl (Dulcolax Supp) 10 mg PRN DAILY PRN [place] CONSTIPATION 01/08/21 15:30 01/08/21 16:39 Digoxin (Lanoxin) 500 mcg 1X ONCE IV 01/08/21 18:15 01/08/21 18:26 DC 01/08/21 18:20 Amiodarone HCl (Cordarone) 200 mg DAILY PO 01/09/21 09:00 01/09/21 08:02 Furosemide (Lasix) 40 mg DAILY PO 01/09/21 09:00 01/09/21 08:06 Digoxin (Lanoxin) 250 mcg 1X ONCE IV 01/08/21 21:30 01/08/21 21:32 DC 01/08/21 21:12 ALLERGIES ALLERGIES: Coded Allergies: No Known Drug Allergies (Unverified , 09/30/18) ROS Review of System 14 point ROS conducted with pertinent positives noted above in HPI PHYSICAL EXAM General: Alert, Oriented X3, Cooperative, No acute distress HEENT: Atraumatic Lungs: Other (wheezing ) Heart: Other (IRRR; tele AFIB) Abdomen: Soft Extremities: Normal pulses, Other (trace pedal edema ) Skin: No significant lesion Neuro: Normal speech, Sensation intact Psych/Mental Status: Mental status NL, Mood NL MUSCULOSKELETAL: Osteoarthritic changes both hands VITALS/I&O VITALS/I&O: Vital Signs Date Time Temp Pulse Resp B/P (MAP) Pulse Ox O2 Delivery O2 Flow Rate FiO2 01/09/21 08:03 93 119/63 01/09/21 07:45 Nasal Cannula 2.0 01/09/21 07:00 98.6 20 91 98.6 I & O 01/08/21 01/08/21 01/09/21 15:00 23:00 07:00 Intake Total 120 ml Output Total 1 ml 0 ml Balance 119 ml 0 ml LABS Lab: Laboratory Tests Test 01/09/21 10:05 White Blood Count 14.3 x10^3/uL (4.0-11.0) H Red Blood Count 3.67 x10^6/uL (4.30-5.70) L Hemoglobin 12.4 g/dL (13.0-17.5) L Hematocrit 35.3 % (39.0-53.0) L Mean Corpuscular Volume 96 fL (79-100) Mean Corpuscular Hemoglobin 34 pg (25-35) Mean Corpuscular Hemoglobin Concent 35 g/dL (31-37) Red Cell Distribution Width 12.6 % (11.5-14.5) Platelet Count 224 x10^3/uL (140-400) Sodium Level 138 mmol/L (136-145) Potassium Level 3.1 mmol/L (3.5-5.1) L Chloride Level 102 mmol/L (98-107) Carbon Dioxide Level 25 mmol/L (21-32) Anion Gap 11 (6-14) Blood Urea Nitrogen 13 mg/dL (8-26) Creatinine 0.8 mg/dL (0.7-1.3) Estimated GFR (Cockcroft-Gault) 95.6 BUN/Creatinine Ratio 16 (6-20) Glucose Level 123 mg/dL (70-99) H Calcium Level 7.8 mg/dL (8.5-10.1) L Total Bilirubin 0.6 mg/dL (0.2-1.0) Aspartate Amino Transferase (AST) 31 U/L (15-37) Alanine Aminotransferase (ALT) 29 U/L (16-63) Alkaline Phosphatase 83 U/L (46-116) Total Protein 6.1 g/dL (6.4-8.2) L Albumin 1.8 g/dL (3.4-5.0) L Albumin/Globulin Ratio 0.4 (1.0-1.7) L Laboratory Tests 01/09/21 10:05 Laboratory Tests 01/09/21 10:05 ECHOCARDIOGRAM ECHOCARDIOGRAM <Conclusion> The left ventricular systolic function is normal. The Ejection Fraction is 55-60%. There is normal LV segmental wall motion. Mild mitral regurgitation. Trace tricuspid regurgitation. The PA pressure was estimated at 21 mmHg. There is no evidence of significant pericardial effusion. DATE: 05/05/20 [id number] 0 STRESS TEST STRESS TEST Conclusion 1. No EKG evidence of stress-induced ischemia. 2. Nuclear imaging shows no reversible ischemia or infarct. 3. Normal left ventricular systolic function with ejection fraction of 68%. 4. Low risk Lexiscan nuclear stress test. DATE: 11/10/20 [id number] 0 ASSESSMENT/PLAN ASSESSMENT/PLAN 1. Abdominal pain, acute pancreatitis 2. PAFIB with RVR; secondary to meds held as he was NPO. s/p previous CV. remains in AFIB, rate mostly controlled 3. ILR in situ ([employer]tr[employer]); recent device check did not show any AFIB or bradycardia 4. Mild acute on chronic diastolic CHF 5. Hypertension; controlled 6. Leukocytosis 7. Profound hypokalemia; replaced Recommendations CXR Breathing treatments Hold IVFs for now as patient tolerating liquids Check Mg and replace as warranted Increase metoprolol for better rate control Continue amiodarone for rhythm maintenance Eliquis for stroke prevention Consider outpatient CV versus referral for ablation therapy Follow GI recs Supportive care SRIRAM JORGENSEN MD 01/09/21 1533: CARDIAC CONSULT ASSESSMENT/PLAN ASSESSMENT/PLAN Patient seen and examined. Agree with ROAD ROLLER OPERATOR HOT MIX's assessment and plan. Patient with paroxysmal atrial fibrillation s/p cardioversion twice in the past presently with AF with RVR in the setting of acute pancreatitis and withholding amiodarone. Resume amiodarone for rhythm maintenance. Heart rate better controlled. Increase metoprolol dose for better rate control. Continue Eliquis for stroke prophylaxis. Patient has loop recorder implanted for syncope of uncertain etiology. Device checks to recently did not show any further AF episodes. Hold intravenous fluids since patient has mild acute on chronic diastolic heart failure. We will consider outpatient referral to EP for ablation therapy. Thank you for your consultation PAPITO WARREN APRN Jan 09, 2021 12:15 SRIRAM JORGENSEN MD Jan 09, 2021 15:33
[2021-01-09] MEDS ORDERED: ALBUTEROL SULFATE 2.5 MG/3 ML NEBU. NEB PRN (13:15)
[2021-01-09 15:00] VITALS: BP 112/71
--- NOTE | 2021-01-09 15:04 | RAD ---
EXAM: AP View of the chest DATE: 01/09/2021 1:21 PM INDICATION: Reason: SOA / Spl. Instructions: / History: COMPARISON: No Prior FINDINGS: Heart is mildly enlarged. Aorta is tortuous with atherosclerotic calcifications. Small left pleural e ffusion. Nodular opacity left lower lung. Diffuse patchy left lung base and medial right lung base ai rspace opacities. IMPRESSION: Cardiomegaly with bilateral parenchymal opacities and left pleural effusion may represent pulmonary e krista. Multifocal consolidative process could also have this appearance. Electronically signed by: Tobi Drummond MD (01/09/2021 3:02 PM) [facility]
[2021-01-09] MEDS ORDERED: METOPROLOL SUCC 24HR ER 25 MG TAB.ER.24H. PO ONE (15:30)
[2021-01-09] MEDS ORDERED: FUROSEMIDE 40 MG/4 ML VIAL. IVP ONE (15:30)
[2021-01-09 19:00] VITALS: BP 117/67
[2021-01-09] MEDS: SIMVASTATIN 20 MG TABLET PO SCH (20:27)
[2021-01-09] MEDS: traZODone 100 MG TABLET. PO SCH (20:28)
[2021-01-09] MEDS: ZOLPIDEM 5 MG TABLET. PO PRN (20:28)
[2021-01-09 22:45] VITALS: BP 122/64
[2021-01-09] MEDS ORDERED: METOPROLOL TART IMMED RELEASE 50 MG TABLET. PO ONE (23:30)
[2021-01-09] MEDS ORDERED: DIGOXIN IV 500 MCG/2 ML AMPUL. IV ONE (23:30)
[2021-01-10] MEDS: LIDO:MAALOX 1:1 20 ML SINGLE DOSE. PO PRN ×2 (02:54→11:45)
[2021-01-10 03:00] VITALS: BP 124/70
[2021-01-10] MEDS: AMPICILLIN/SULBACTAM 3 GM in IV NORMAL SALINE 100ML 100 ML IV SCH ×2 (05:32→11:45)
[2021-01-10] MEDS: IV DEXTROSE 5%-LACT RINGERS 1,000 ML IV SCH (05:32)
[2021-01-10 06:41] LABS: BASO # 0.1 x10^3/uL (0.0-0.2); BASO % 0 % (0-3); EOS # 0.2 x10^3/uL (0.0-0.7); EOS % 1 % (0-3); HEMATOCRIT 37.9 % (39.0-53.0); HEMOGLOBIN 13.2 g/dL (13.0-17.5); LYMPH # 0.9 x10^3/uL (1.0-4.8); LYMPH % 6 % (24-48); MEAN CORPUSCULAR HEMOGLOBIN 33 pg (25-35); MEAN CORPUSCULAR HGB CONC 35 g/dL (31-37); MEAN CORPUSCULAR VOLUME 95 fL (79-100); MONO # 1.3 x10^3/uL (0.0-1.1); MONO % 9 % (0-9); NEUT # 12.5 x10^3/uL (1.8-7.7); NEUT % 83 % (31-73); PLATELET COUNT 281 x10^3/uL (140-400); RED BLOOD COUNT 3.98 x10^6/uL (4.30-5.70); RED CELL DISTRIBUTION WIDTH 12.7 % (11.5-14.5)
[2021-01-10 06:59] LABS: CALCIUM 8.1 mg/dL (8.5-10.1); CREATININE 1.1 mg/dL (0.7-1.3); GFR 66.2; POTASSIUM 3.4 mmol/L (3.5-5.1)
[2021-01-10 07:00] VITALS: BP 135/86
[2021-01-10] MEDS ORDERED: PANTOPRAZOLE 40 MG TABLET.DR. PO SCH (07:30)
[2021-01-10] MEDS: LACTOBACILLUS RHAMNOSUS GG 1 CAPSULE. PO SCH (08:58)
[2021-01-10] MEDS: ASPIRIN ENTERIC COATED 81 MG TABLET.DR. PO SCH (08:58)
[2021-01-10] MEDS: FUROSEMIDE 40 MG TABLET. PO SCH (08:58)
[2021-01-10] MEDS: APIXABAN 5 MG TABLET. PO SCH (08:58)
[2021-01-10] MEDS: AMIODARONE HCL 200 MG TABLET. PO SCH (08:59)
[2021-01-10] MEDS: DOCUSATE SODIUM 100 MG CAPSULE. PO PRN (09:00)
[2021-01-10] MEDS ORDERED: METOPROLOL SUCC 24HR ER 25 MG TAB.ER.24H. PO SCH (09:00)
[2021-01-10] MEDS: FLUTICASONE 50MCG/NASAL SPRAY 16GM BOTTLE. NS SCH (09:00)
--- NOTE | 2021-01-10 09:40 | PDOC ---
Date of Service: DATE: 01/10/21 TIME: 09:36 Subjective: Subjective: Feeling better. Would like to go home. Tolerated full liquids for dinner. Somehow was brought clear for breakfast again - requested fulls (still awaiting) because he's tired of jello and broth, doesn't sound appetizing. Not needing pain meds. Stooling and passing gas. No n/v. Breathing better. 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 Objective: Vital Signs: Vital Signs Date Time Temp Pulse Resp B/P (MAP) Pulse Ox O2 Delivery O2 Flow Rate FiO2 01/10/21 08:59 79 135/86 01/10/21 07:00 98.4 18 93 Nasal Cannula 3.0 98.4 Labs: Laboratory Tests Test 01/09/21 10:05 01/10/21 06:30 White Blood Count 14.3 x10^3/uL 15.0 x10^3/uL Red Blood Count 3.67 x10^6/uL 3.98 x10^6/uL Hemoglobin 12.4 g/dL 13.2 g/dL Hematocrit 35.3 % 37.9 % Mean Corpuscular Volume 96 fL 95 fL Mean Corpuscular Hemoglobin 34 pg 33 pg Mean Corpuscular Hemoglobin Concent 35 g/dL 35 g/dL Red Cell Distribution Width 12.6 % 12.7 % Platelet Count 224 x10^3/uL 281 x10^3/uL Sodium Level 138 mmol/L 138 mmol/L Potassium Level 3.1 mmol/L 3.4 mmol/L Chloride Level 102 mmol/L 103 mmol/L Carbon Dioxide Level 25 mmol/L 28 mmol/L Anion Gap 11 7 Blood Urea Nitrogen 13 mg/dL 14 mg/dL Creatinine 0.8 mg/dL 1.1 mg/dL Estimated GFR (Cockcroft-Gault) 95.6 66.2 BUN/Creatinine Ratio 16 Glucose Level 123 mg/dL 98 mg/dL Calcium Level 7.8 mg/dL 8.1 mg/dL Magnesium Level 1.9 mg/dL Total Bilirubin 0.6 mg/dL Aspartate Amino Transf (AST/SGOT) 31 U/L Alanine Aminotransferase (ALT/SGPT) 29 U/L Alkaline Phosphatase 83 U/L Total Protein 6.1 g/dL Albumin 1.8 g/dL Albumin/Globulin Ratio 0.4 Neutrophils (%) (Auto) 83 % Lymphocytes (%) (Auto) 6 % Monocytes (%) (Auto) 9 % Eosinophils (%) (Auto) 1 % Basophils (%) (Auto) 0 % Neutrophils # (Auto) 12.5 x10^3/uL Lymphocytes # (Auto) 0.9 x10^3/uL Monocytes # (Auto) 1.3 x10^3/uL Eosinophils # (Auto) 0.2 x10^3/uL Basophils # (Auto) 0.1 x10^3/uL Lipase 118 U/L BLOOD CULTURE Final NO GROWTH AFTER 5 DAYS PE: GEN: NAD - up in chair - looks better today LUNGS: CTAB HEART: irregular ABD: BS+, soft, non-tender NEURO/PSYCH: A & O 3 A/P: Pancreatitis - ?possibly related to propofol? Leukocytosis - fluctuating A Fib - cardiology following -- Improving from GI standpoint. Okay to [facility] when okay w/ others. Justicifation of Admission Dx: Justifications for Admission: Justification of Admission Dx: No SHIN-SHAHEED MILLAN Jan 10, 2021 09:40
[2021-01-10 11:00] VITALS: BP 129/59
--- NOTE | 2021-01-10 11:30 | PDOC ---
PAPITO WARREN MASTER 01/10/21 1130: CARDIO Progress Notes Date and Time Date of Service 01/10/21 Time of Evaluation 1120 Subjective Subjective: No Chest Pain, No shortness of breath, No Palpitations, Other (feeling full in abdomen. breathing improved ) Vitals Vitals Vital Signs Date Time Temp Pulse Resp B/P (MAP) Pulse Ox O2 Delivery O2 Flow Rate FiO2 01/10/21 08:59 79 135/86 01/10/21 08:00 Room Air 01/10/21 07:00 98.4 18 93 3.0 98.4 Weight Weight [ ] Laboratory Labs Laboratory Tests Test 01/10/21 06:30 White Blood Count 15.0 x10^3/uL (4.0-11.0) Red Blood Count 3.98 x10^6/uL (4.30-5.70) Hemoglobin 13.2 g/dL (13.0-17.5) Hematocrit 37.9 % (39.0-53.0) Mean Corpuscular Volume 95 fL (79-100) Mean Corpuscular Hemoglobin 33 pg (25-35) Mean Corpuscular Hemoglobin Concent 35 g/dL (31-37) Red Cell Distribution Width 12.7 % (11.5-14.5) Platelet Count 281 x10^3/uL (140-400) Neutrophils (%) (Auto) 83 % (31-73) Lymphocytes (%) (Auto) 6 % (24-48) Monocytes (%) (Auto) 9 % (0-9) Eosinophils (%) (Auto) 1 % (0-3) Basophils (%) (Auto) 0 % (0-3) Neutrophils # (Auto) 12.5 x10^3/uL (1.8-7.7) Lymphocytes # (Auto) 0.9 x10^3/uL (1.0-4.8) Monocytes # (Auto) 1.3 x10^3/uL (0.0-1.1) Eosinophils # (Auto) 0.2 x10^3/uL (0.0-0.7) Basophils # (Auto) 0.1 x10^3/uL (0.0-0.2) Sodium Level 138 mmol/L (136-145) Potassium Level 3.4 mmol/L (3.5-5.1) Chloride Level 103 mmol/L (98-107) Carbon Dioxide Level 28 mmol/L (21-32) Anion Gap 7 (6-14) Blood Urea Nitrogen 14 mg/dL (8-26) Creatinine 1.1 mg/dL (0.7-1.3) Estimated GFR (Cockcroft-Gault) 66.2 Glucose Level 98 mg/dL (70-99) Calcium Level 8.1 mg/dL (8.5-10.1) Lipase 118 U/L (73-393) Microbiology Micro Microbiology 01/04/21 Blood Culture - Final, Complete NO GROWTH AFTER 5 DAYS Physical Exam HEENT: Neck Supple W Full Motion Chest: Symmetric LUNGS: Other (diminished bases) Heart: irregularly irregular (rate near 115) Abdomen: Other (soft ) Extremities: No Edema Neurology: alert, oriented, follow commands Assessment Assessment 1. Abdominal pain, acute pancreatitis 2. PAFIB with RVR; secondary to meds held as he was NPO. s/p previous CV. remains in AFIB, rate mildly elevated 3. ILR in situ ([employer]); recent device check did not show any AFIB or bradycardia 4. Mild acute on chronic diastolic CHF; improved s/p IV diuresis 5. Hypertension; controlled 6. Leukocytosis 7. Profound hypokalemia; replaced Recommendations Increase metoprolol for better rate control Continue amiodarone therapy Eliquis for stroke prevention Outpatient referral to EP for possible ablation therapy Follow GI recs Supportive care Justicifation of Admission Dx: Justifications for Admission: Justification of Admission Dx: No SRIRAM JORGENSEN MD 01/10/21 1502: CARDIO Progress Notes Assessment Assessment Patient seen and examined. Agree with ALGEBRA TUTOR's assessment and plan. PAF s/p cardioversions in the past presently with recurrent A. fib -rate better controlled Acute on chronic diastolic heart failure better compensated Continue Eliquis for stroke prophylaxis We will consider outpatient referral to EP for possible ablation therapy Continue current management of acute pancreatitis per GI team PAPITO WARREN APRN Jan 10, 2021 11:30 SRIRAM JORGENSNE MD Jan 10, 2021 15:02
[2021-01-10] MEDS ORDERED: AMOX1TAB61 PO (13:09)
--- NOTE | 2021-01-10 13:13 | PDOC3 ---
Discharge Summary Visit Information Date of Admission: Jan 04, 2021 Date of Discharge: Jan 10, 2021 Final Diagnosis Acute pancreatitis wtih acute abd pain and acute electrolyte derrangement of Severe hypokalemia Severe Hypocalcemia hx of HTN Hx of DLD Hx of SVT Bacterial pneumonia likely gram-negative PAFIB with RVR; secondary to meds held as he was NPO. s/p previous CV. remains in AFIB, rate mostly controlled Mild acute on chronic diastolic CHF Medical Problems: (1) Abdominal pain Status: Acute (2) Hypocalcemia Status: Acute (3) Hypokalemia Status: Acute (4) Pancreatitis, acute Status: Acute (5) Person under investigation for COVID-19 Status: Acute (6) Pneumonia Status: Acute Brief Hospital Course Allergies Allergies Coded Allergies Type Severity Reaction Last Updated Verified No Known Drug Allergies 09/30/18 No Vital Signs Vital Signs Date Time Temp Pulse Resp B/P (MAP) Pulse Ox O2 Delivery O2 Flow Rate FiO2 01/10/21 11:00 98.2 88 18 129/59 (82) 94 Nasal Cannula 3.0 98.2 Lab Results Laboratory Tests Test 01/09/21 10:05 01/10/21 06:30 White Blood Count 14.3 x10^3/uL (4.0-11.0) 15.0 x10^3/uL (4.0-11.0) Red Blood Count 3.67 x10^6/uL (4.30-5.70) 3.98 x10^6/uL (4.30-5.70) Hemoglobin 12.4 g/dL (13.0-17.5) 13.2 g/dL (13.0-17.5) Hematocrit 35.3 % (39.0-53.0) 37.9 % (39.0-53.0) Mean Corpuscular Volume 96 fL (79-100) 95 fL (79-100) Mean Corpuscular Hemoglobin 34 pg (25-35) 33 pg (25-35) Mean Corpuscular Hemoglobin Concent 35 g/dL (31-37) 35 g/dL (31-37) Red Cell Distribution Width 12.6 % (11.5-14.5) 12.7 % (11.5-14.5) Platelet Count 224 x10^3/uL (140-400) 281 x10^3/uL (140-400) Sodium Level 138 mmol/L (136-145) 138 mmol/L (136-145) Potassium Level 3.1 mmol/L (3.5-5.1) 3.4 mmol/L (3.5-5.1) Chloride Level 102 mmol/L (98-107) 103 mmol/L (98-107) Carbon Dioxide Level 25 mmol/L (21-32) 28 mmol/L (21-32) Anion Gap 11 (6-14) 7 (6-14) Blood Urea Nitrogen 13 mg/dL (8-26) 14 mg/dL (8-26) Creatinine 0.8 mg/dL (0.7-1.3) 1.1 mg/dL (0.7-1.3) Estimated GFR (Cockcroft-Gault) 95.6 66.2 BUN/Creatinine Ratio 16 (6-20) Glucose Level 123 mg/dL (70-99) 98 mg/dL (70-99) Calcium Level 7.8 mg/dL (8.5-10.1) 8.1 mg/dL (8.5-10.1) Magnesium Level 1.9 mg/dL (1.8-2.4) Total Bilirubin 0.6 mg/dL (0.2-1.0) Aspartate Amino Transf (AST/SGOT) 31 U/L (15-37) Alanine Aminotransferase (ALT/SGPT) 29 U/L (16-63) Alkaline Phosphatase 83 U/L (46-116) Total Protein 6.1 g/dL (6.4-8.2) Albumin 1.8 g/dL (3.4-5.0) Albumin/Globulin Ratio 0.4 (1.0-1.7) Neutrophils (%) (Auto) 83 % (31-73) Lymphocytes (%) (Auto) 6 % (24-48) Monocytes (%) (Auto) 9 % (0-9) Eosinophils (%) (Auto) 1 % (0-3) Basophils (%) (Auto) 0 % (0-3) Neutrophils # (Auto) 12.5 x10^3/uL (1.8-7.7) Lymphocytes # (Auto) 0.9 x10^3/uL (1.0-4.8) Monocytes # (Auto) 1.3 x10^3/uL (0.0-1.1) Eosinophils # (Auto) 0.2 x10^3/uL (0.0-0.7) Basophils # (Auto) 0.1 x10^3/uL (0.0-0.2) Lipase 118 U/L (73-393) Laboratory Tests Test 01/10/21 06:30 White Blood Count 15.0 x10^3/uL (4.0-11.0) Red Blood Count 3.98 x10^6/uL (4.30-5.70) Hemoglobin 13.2 g/dL (13.0-17.5) Hematocrit 37.9 % (39.0-53.0) Mean Corpuscular Volume 95 fL (79-100) Mean Corpuscular Hemoglobin 33 pg (25-35) Mean Corpuscular Hemoglobin Concent 35 g/dL (31-37) Red Cell Distribution Width 12.7 % (11.5-14.5) Platelet Count 281 x10^3/uL (140-400) Neutrophils (%) (Auto) 83 % (31-73) Lymphocytes (%) (Auto) 6 % (24-48) Monocytes (%) (Auto) 9 % (0-9) Eosinophils (%) (Auto) 1 % (0-3) Basophils (%) (Auto) 0 % (0-3) Neutrophils # (Auto) 12.5 x10^3/uL (1.8-7.7) Lymphocytes # (Auto) 0.9 x10^3/uL (1.0-4.8) Monocytes # (Auto) 1.3 x10^3/uL (0.0-1.1) Eosinophils # (Auto) 0.2 x10^3/uL (0.0-0.7) Basophils # (Auto) 0.1 x10^3/uL (0.0-0.2) Sodium Level 138 mmol/L (136-145) Potassium Level 3.4 mmol/L (3.5-5.1) Chloride Level 103 mmol/L (98-107) Carbon Dioxide Level 28 mmol/L (21-32) Anion Gap 7 (6-14) Blood Urea Nitrogen 14 mg/dL (8-26) Creatinine 1.1 mg/dL (0.7-1.3) Estimated GFR (Cockcroft-Gault) 66.2 Glucose Level 98 mg/dL (70-99) Calcium Level 8.1 mg/dL (8.5-10.1) Lipase 118 U/L (73-393) Brief Hospital Course Mr. Ann is a 70 old male, admit with acute abd pain, [place] [address] lipase about 100 for [address] chest on admit showed LL pulm consolidation, treated as pneumonia, CXR cleared up over days, looked more CHF on 01/09 CV consulted for AFIb, will refer for EP eval for poss ablation. Discharge Information Condition at Discharge: Improved Follow Up: Weeks Disposition/Orders: D/C to Home Scheduled Amiodarone Hcl (Amiodarone Hcl) 200 Mg Tablet, 200 MG PO DAILY for atrial fibrillation for 30 Days, #30 Ref 5 Prescribed by: SRIRAM JORGENSEN on 11/08/18 1014 Last Action: Continued on 01/08/211810 by LAURA CASTORENA Amoxicillin/Potassium Clav (Augmentin 875-125 Tablet) 1 Each Tablet, 1 TAB PO BID for pneumonia for 3 Days, #6 Ref 0 Prescribed by: DANIEL BLANTON on 01/10/21 1309 Apixaban (Eliquis) 5 Mg Tablet, 5 MG PO BID for atrial fibrillation, #60 Ref 1 Prescribed by: DANIEL BLANTON on 08/10/181213 Last Action: Continued on 01/04/211730 by JALEN ZAMUDIO MD Aspirin (Aspirin Ec) 81 Mg Tablet.dr, 81 MG PO DAILYWBKFT for cardiac, #100 Prescribed by: DANIEL BLANTON on 08/10/181213 Last Action: Continued on 01/04/211730 by JALEN ZAMUDIO MD Fluticasone Propionate (Flonase Allergy Relief) 9.9 Ml [place].susp, 2 SPRAYS NS DAILY, (Reported) Entered as Reported by: OSMANI PA on 08/08/18 2530 Last Action: Converted on 01/04/211730 by JALEN ZAMUDIO MD Furosemide (Lasix) 40 Mg Tablet, 1 TAB PO DAILY for CHF, #30 Ref 1 Prescribed by: DANIEL BLANTON on 08/10/18 1214 Last Action: Continued on 01/08/211847 by LAURA CASTORENA Loratadine (Loratadine) 10 Mg Tablet, 2 TAB PO QHS for ALLERGY, #30 Ref 5 (Reported) Entered as Reported by: OSMANI PA on 08/08/18 150 Metoprolol Tartrate (Metoprolol Tartrate) 50 Mg Tablet, 1 TAB PO BID for atrial fibrillation, #60 Ref 1 Prescribed by: DANIEL BLANTON on 08/10/18 1229 Last Action: Continued on 01/04/211730 by JALEN ZAMUDIO MD Simvastatin (Simvastatin) 20 Mg Tablet, 20 MG PO QHS for FOR CHOLESTEROL, #30 Ref 0 (Reported) Entered as Reported by: OSMANI PA on 08/08/18 1509 Last Action: Continued on 01/04/211730 by JALEN ZAMUDIO MD Trazodone Hcl (Trazodone Hcl) 100 Mg Tablet, 1 TAB PO QHS, #30 Ref 1 (Reported) Entered as Reported by: OSMANI PA on 08/08/18 150 Last Action: Continued on 01/04/211730 by JALEN ZAMUDIO MD Patient Instructions Patient Instructions face to face time 38 min total Justicifation of Admission Dx: Justifications for Admission: Justification of Admission Dx: DANIEL Carter MD Jan 10, 2021 13:13
[2021-01-10] MEDS ORDERED: METO-247 PO (13:32)
--- NOTE | 2021-01-10 15:15 | NUR ---
Discharge Note: MATEO JUAREZ [address] Discharge instructions and discharge home medications reviewed with the patient and a copy given. All questions have been answered and understanding verbalized. The following instructions and handouts were given: Augmentin BID, Metoprolol 100 mg starting tomorrow morning Other home meds as directed Follow up with cardiology for EP outpatient referral. Follow up with PCP in a week. Patient expressed he is finding a new PCP since his doctor left the area. Discontinued lines and drains: peripheral IV intact, patient tolerated removal, no complications noted Patient discharged to home with home health via wheelchair on RA accompanied by the patient's significant other at 1512.
--- NOTE | 2021-01-10 15:22 | NUR ---
Addendum: Patient discharged to home with self-care.
== END 2021-01-10 15:12 | disposition home or self-care (01) | DRG 177 ==
LOC: ER 16:34 → 1 WEST ICU 16:45 → 5 SOUTH 01-06 18:44
PROVIDERS: ADMIT Internal Medicine; ATTEND Internal Medicine
DX: J15.6 Pneumonia due to other Gram-negative bacteria (principal); K85.90 Acute pancreatitis without necrosis or infection, unspecified; I50.33 Acute on chronic diastolic (congestive) heart failure; E78.00 Pure hypercholesterolemia, unspecified; E78.5 Hyperlipidemia, unspecified; E83.51 Hypocalcemia; E87.6 Hypokalemia; G47.33 Obstructive sleep apnea (adult) (pediatric); I11.0 Hypertensive heart disease with heart failure; I48.0 Paroxysmal atrial fibrillation; I87.8 Other specified disorders of veins; K21.9 Gastro-esophageal reflux disease without esophagitis; Z20.822 Contact with and (suspected) exposure to COVID-19; Z82.49 Family history of ischemic heart disease and other diseases of the circulatory system; Z87.891 Personal history of nicotine dependence; M19.90 Unspecified osteoarthritis, unspecified site; Z90.49 Acquired absence of other specified parts of digestive tract; K57.30 Diverticulosis of large intestine without perforation or abscess without bleeding
CPT/HCPCS: 36415; 71045; 74022; 74177; 76705; 80048; 80053; 80061; 81001; 82310; 83605; 83690; 83735; 84100; 84443; 84484; 85007; 85025; 85027; 87040; 87426; 93005; 94640; 94760; 96372; 96374; 96375; 96376; C9113; J0295; J0456; J1160; J1940; J1956; J2270; J2405; J3475; J3480; J3490; J7030; J7050; J7121; Q9967; U0003; U0005; 99285-25; G0378; J7613

== ENCOUNTER 2021-03-21 07:31 | Day surgery (SDC) | payer MEDICARE, OTHER ==
[~2021-03-21] VITALS: Ht 177.8 cm; Wt 102.2 kg
[~2021-03-21 07:31] MED LIST changes: +AMOX1TAB61 PO; +AZEL205.2 NS; +HYDROmorphone 2 MG/ML INJ. IVP PRN; +IV RINGERS,LACTATED 1000ML 1,000 ML IV SCH; +METO-247 PO; +MORPHINE SULFATE 2 MG/ML INJ. IVP PRN; +PROCHLORPERAZINE 10 MG/2 ML VIAL. IVP PRN; +fentaNYL PF VIAL 100 MCG/2 ML VIAL IVP PRN
[2021-03-21] MEDS ORDERED: LIDOCAINE 2% VISCOUS 15 ML SOLUTION. SWSW ONE (07:45)
[2021-03-21] MEDS ORDERED: LIDOCAINE 2% TOPICAL JELLY 30GM TUBE. TP ONE (07:45)
[2021-03-21] MEDS ORDERED: BENZOCAINE ONE 20% MUCOSAL SPRAY. MM (07:45)
[2021-03-21] MEDS ORDERED: KETAMINE HCL IN NACL, ISO-OSM 50 MG/5 ML SYRINGE ONE (09:27)
[2021-03-21] MEDS ORDERED: MIDAZOLAM HCL/PF 2 MG/2 ML VIAL. ONE (09:27)
--- NOTE | 2021-03-21 10:09 | CARD ---
MR#: [id number] Date of Study: 03/21/2021 Ordering Physician: SRIRAM JORGENSEN Referring Physician: Donn FULLER: Lynette Ray [facility] APPROVED REPORT EXAM: Transesophageal echocardiogram with color flow Doppler. INDICATION Atrial Fibrillation RISK FACTORS Hypertension Reason For Test : Rule out Intracardiac Thrombus. PROCEDURE After obtaining informed consent, patient underwent transesophageal echo in the PACU. Type of Sedation : General Anesthesia Sedation was administered by Anesthesia. Sedation was achieved with Versed 2mg intravenously. Sedation was achieved with Ketamine 50mg intravenously. Transesophageal probe was inserted and advanced into esophagus by Sriram Jorgensen MD. Throughout the procedure, the blood pressure, pulse oximetry, cardiac rhythm, and rate were monitored . LEFT VENTRICLE The left ventricle is normal size. There is borderline concentric left ventricular hypertrophy. The l eft ventricular systolic function is normal. Estimated ejection fraction 50-55%. There is normal LV segmental wall motion. RIGHT VENTRICLE The right ventricle is normal size. There is normal right ventricular wall thickness. The right ventr icular systolic function is normal. ATRIA The left atrium is moderately dilated. The right atrium appears dilated. The interatrial septum is in tact with no evidence for an atrial septal defect or patent foramen ovale as noted on 2-D or Doppler imaging. There is no thrombus noted in the left atrial appendage. AORTIC VALVE The aortic valve is normal in structure and function. Doppler and Color Flow revealed trace aortic re gurgitation. There is no significant aortic valvular stenosis. MITRAL VALVE The mitral valve is normal in structure and function. There is no evidence of mitral valve prolapse. There is no mitral valve stenosis. Doppler and Color-flow revealed moderate mitral regurgitation. TRICUSPID VALVE The tricuspid valve is normal in structure and function. Doppler and Color Flow revealed mild tricusp id regurgitation. There is no tricuspid valve stenosis. PULMONIC VALVE The pulmonary valve is normal in structure and function. Doppler and Color Flow revealed trace to mil d pulmonic valvular regurgitation. GREAT VESSELS The aortic root is normal in size. The ascending aorta is normal in size. PERICARDIAL EFFUSION There is no evidence of significant pericardial effusion. Critical Notification Critical Value: No <Conclusion> The left ventricular systolic function is normal. Estimated ejection fraction 50-55%. There is normal LV segmental wall motion. The left atrium is moderately dilated. Moderate mitral regurgitation. Mild tricuspid regurgitation. There is no evidence of significant pericardial effusion. No intracardiac thrombus. Signed by : Sriram Jorgensen, Electronically Approved : 03/21/2021 10:08:31
[2021-03-21 10:25] VITALS: BP 109/81
== END 2021-03-21 10:40 | disposition home or self-care (01) ==
LOC: SURG 07:31
PROVIDERS: ATTEND Internal Medicine Cardiovascular Disease
DX: I48.91 Unspecified atrial fibrillation (principal); I08.1 Rheumatic disorders of both mitral and tricuspid valves; G47.33 Obstructive sleep apnea (adult) (pediatric); I11.0 Hypertensive heart disease with heart failure; I50.9 Heart failure, unspecified; E78.00 Pure hypercholesterolemia, unspecified; E66.9 Obesity, unspecified; K21.9 Gastro-esophageal reflux disease without esophagitis; M19.90 Unspecified osteoarthritis, unspecified site; Z87.891 Personal history of nicotine dependence; Z72.89 Other problems related to lifestyle; Z88.8 Allergy status to other drugs, medicaments and biological substances; Z98.890 Other specified postprocedural states; Z79.899 Other long term (current) drug therapy; Z79.01 Long term (current) use of anticoagulants
CPT/HCPCS: 93312; 93325; J2250

== ENCOUNTER → 2021-05-11 | Outpatient (CLI) | payer MEDICARE, OTHER ==
[~2021-05-11] MED LIST changes: -HYDROmorphone 2 MG/ML INJ. IVP PRN; -IV RINGERS,LACTATED 1000ML 1,000 ML IV SCH; -MORPHINE SULFATE 2 MG/ML INJ. IVP PRN; -PROCHLORPERAZINE 10 MG/2 ML VIAL. IVP PRN; -fentaNYL PF VIAL 100 MCG/2 ML VIAL IVP PRN
--- NOTE | 2021-05-11 13:05 | CARD ---
MR#: [id number] Date of Study: 05/11/2021 Ordering Physician: SRIRAM JORGENSEN, Referring Physician: Donn FULLER: Dion Hernandez [facility] APPROVED REPORT EXAM: Two-dimensional and M-mode echocardiogram with Doppler and color Doppler. Other Information Quality : AverageHR: 64bpm Rhythm : NSR INDICATION Atrial Fibrillation Surgery/Intervention Status post ablation for atrial fibrillation. RISK FACTORS Hypertension Hyperlipidemia 2D DIMENSIONS Left Atrium(2D)5.2 (1.6-4.0cm)IVSd1.0 (0.7-1.1cm) Aortic Root(2D)3.6 (2.0-3.7cm)LVDd5.9 (3.9-5.9cm) LVOT Diameter2.0 (1.8-2.4cm)PWd1.0 (0.7-1.1cm) LA Mwtncg851 (18-58mL)LVDs3.5 (2.5-4.0cm) FS (%) 40.1 %SV121.7 ml LVEF(%)70.0 (>50%) Aortic Valve AoV Peak Maurice.114.0cm/sAoV VTI21.3cm AO Peak GR.5.2mmHgLVOT Peak Maurice.103.2cm/s AO Mean GR.3mmHgAVA (VMAX)2.98cm2 Mitral Valve MV E Mcssagor39.3cm/sMV E Peak Gr.2mmHg MV DECEL [id number] A Aacimmkr06.8cm/s MV E Mean Gr.1mmHgE/A Ratio1.8 Pulmonary Valve PV Peak Zxtxhngg12.1cm/s Tricuspid Valve TR P. Avmbsxfu814og/sTR Peak Gr.34mmHg Pulmonary Vein S1 Mtnzamii65.3cm/sD2 Aktvceri93.8cm/s LEFT VENTRICLE The left ventricle is normal size. There is normal left ventricular wall thickness. The left ventricu lar systolic function is normal and the ejection fraction is within normal range. EF 55% There is nor mal LV segmental wall motion. Transmitral Doppler flow pattern is Grade II-pseudonormal filling dynam ics. No left ventricle thrombus noted on this study. There is no ventricular septal defect visualized . There is no left ventricular aneurysm. There is no mass noted in the left ventricle. RIGHT VENTRICLE The right ventricle is normal size. There is normal right ventricular wall thickness. The right ventr icular systolic function is normal. ATRIA The left atrium is moderately dilated. The right atrium is mildly dilated. The interatrial septum is intact with no evidence for an atrial septal defect or patent foramen ovale as noted on 2-D or Dopple r imaging. AORTIC VALVE The aortic valve is normal in structure and function. Doppler and Color Flow revealed no significant aortic regurgitation. There is no significant aortic valvular stenosis. There is no aortic valvular v egetation. MITRAL VALVE The mitral valve is thickened but opens well. There is no evidence of mitral valve prolapse. There is no mitral valve stenosis. Doppler and Color-flow revealed mild mitral regurgitation. TRICUSPID VALVE The tricuspid valve is normal in structure and function. Doppler and Color Flow revealed trace tricus pid regurgitation. There is no tricuspid valve prolapse or vegetation. There is no tricuspid valve st enosis. PULMONIC VALVE Doppler and Color Flow revealed no pulmonic valvular regurgitation. There is no pulmonic valvular nabila nosis. GREAT VESSELS The aortic root is normal in size. The ascending aorta is normal in size. The IVC is normal in size a nd collapses >50% with inspiration. PERICARDIAL EFFUSION There is no pleural effusion. There is no evidence of significant pericardial effusion. Critical Notification Critical Value: No <Conclusion> The left ventricular systolic function is normal and the ejection fraction is within normal range. EF 55% There is normal LV segmental wall motion. Transmitral Doppler flow pattern is Grade II-pseudonormal filling dynamics. Doppler and Color-flow revealed mild mitral regurgitation. Signed by : Cruz Valero, Electronically Approved : 05/11/2021 13:05:14
== END ==
LOC: ECHO 09:55
PROVIDERS: ATTEND Internal Medicine Cardiovascular Disease
DX: I34.0 Nonrheumatic mitral (valve) insufficiency (principal); I48.91 Unspecified atrial fibrillation
CPT/HCPCS: 93306; C8929